=== PATIENT | female | born 1965 | race Caucasian/White ===

== ENCOUNTER 2024-05-28 16:37 | Inpatient (IN) | payer OTHER, SELFPAY ==
[2024-05-28] VITALS (7 sets, daily range): BP systolic 108–134; BP diastolic 65–86; PULSE 105–113; RESP 18–26; TEMP 36.5–37.1; O2SAT 90–100; BMI 25.6; BMI 24.2
--- NOTE | 2024-05-28 16:53 | ED_ITS ---
<Statement entered by Susan Bourgeois DO - 05/28/24 23:55> I was consulted by the JUAN CARLOS, and we discussed the complexity of the problems being addressed. I approved the treatment and management plan for this patient's care in the emergency department, thus performing a substantive portion of the medical decision making. Patient stable with no increased O2 requirement. No indication for emergent chest tube placement in the ED at this time. Susan Bourgeois DO Discharge Plan Disposition Patient Disposition: Admitted Condition: Serious Clinical Impressions Clinical Impression: Hydropneumothorax, Mass of right lung Discharge ED Provider: Susan Bourgeois General Adult HPI General Chief complaint: Upper Respiratory Infection Stated complaint: SOA,tumor in right lung Time Seen by Provider: 05/28/24 16:53 Mode of Arrival: Wheelchair Source of Information: Patient and Spouse Limitations: No Limitations Description of Symptoms (Recalled from ER Triage Doc. by RN): Pt arrives for evaluation of productive cough x several months. Pt states she has been coughing up yellow sputum. She has a tumor in her right upper lung. History of Present Illness HPI narrative: Patient presents for evaluation of dyspnea. Patient reports that over the last 3 days she has become significantly more short of breath and short of breath at rest. 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 in March and diagnosed with a right lung mass and was offered admission but she declined. Patient felt like she just had an upper respiratory tract infection and initially got better without treatment. She has not followed up since. She currently denies chest pain fever chills hemoptysis hematochezia melena nausea vomiting diarrhea. She just reports difficulty breathing difficulty taking a breath. Related Data Allergies Allergy/AdvReac Type Severity Reaction Status Date / Time CODEINE Allergy Severe I-ITCHING Uncoded 03/26/17 14:52 PCN (PENICILLIN) Allergy Severe I-HIVES Uncoded 03/26/17 14:52 [facility] Disclaimer: The information contained in this section may have been updated after the patient was seen, as this information can be updated by other users. 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/28/24 @ 21:51 by Edwardo David RN) Tonsil cancer Social History Smoking Status: Current every day smoker alcohol intake: never current occupational status: retired Travel in the last 8 weeks: None ROS Obtained: Yes Systems reviewed as appropriate & no additional complaints except as documented Physical Exam General General appearance: alert and in no apparent distress Respiratory Respiratory exam: Absent normal lung sounds bilaterally (Diminished breath sounds in the right lung field significantly) Cardiovascular Cardiovascular exam: Present tachycardia Neurological Exam Neurological exam: Present alert and oriented X3 Medical Decision Making Medical Records Medical records reviewed: Yes I reviewed the patient's medical records. Screening: Per USPSTF and CDC recommendations, given the prevalence of disease in our region, it is our hospital?s policy to screen for HIV and viral Hepatitis for all patients aged 18 and over and those with ongoing risk factors. Hiren Inquiry Pt receiving controlled substance: No Vital Signs: 05/28/24 16:45 05/28/24 17:30 05/28/24 19:00 Temperature 98.7 F Temperature Source Oral Pulse Rate 106 H 110 H Pulse Rate [Right] 113 H Respiratory Rate 18 Blood Pressure 118/71 134/86 Blood Pressure [Right Arm] 108/71 L Blood Pressure Mean [Right Arm] 83 Blood Pressure Source [Right Arm] Automatic Cuff Blood Pressure Position [Right Arm] Sitting 02 Sat by Pulse Oximetry 100 98 97 Oxygen Delivery Method Room Air Room Air 05/28/24 19:30 05/28/24 19:33 Temperature 97.7 F Temperature Source Oral Pulse Rate 105 H Pulse Rate [Right] 111 H Respiratory Rate 19 Blood Pressure 123/74 Blood Pressure [Right Arm] 111/65 Blood Pressure Mean [Right Arm] 80 Blood Pressure Source [Right Arm] Automatic Cuff Blood Pressure Position [Right Arm] 02 Sat by Pulse Oximetry 95 90 L Oxygen Delivery Method Room Air Lab Data Lab results reviewed: Yes I reviewed the patient's lab results. Lab Results 05/28/24 16:48: SARS-CoV-2 (PCR) Not detected, Influenza A Untype (PCR) Not detected, Influenza Type B (PCR) Not detected 05/28/24 17:29: Chlamy pneumoniae PCR Not detected, Adenovirus (PCR) Not detected, B. pertussis DNA (PCR) Not detected, Coronavirus OC43 (PCR) Not detected, Coronavirus HKU1 (PCR) Not detected, Coronavirus 229E (PCR) Not detected, SARS-CoV-2 (PCR) Not detected, Coronavirus NL63 (PCR) Not detected, Human Metapneumovir PCR Not detected, Influenza A (H1) PCR Not detected, Influ A (H1N1/09) PCR Not detected, Influenza A (H3) PCR Not detected, Influenza Type A (PCR) Not detected, Influenza Type B (PCR) Not detected, M. pneumoniae (PCR) Not detected, Parainfluenza 1 (PCR) Not detected, Parainfluenza 2 (PCR) Not detected, Parainfluenza 3 (PCR) Not detected, Parainfluenza 4 (PCR) Not detected, RSV (PCR) Not detected, Entero/Rhino (PCR) Not detected 05/28/24 17:50: WBC 8.7, RBC 3.98 L, Hgb 11.1 L, Hct 35.5 L, MCV 89.2, MCH 27.9, MCHC 31.3 L, RDW 13.2, Plt Count 458 H, MPV 9.9, Neut % (Auto) 75.3, Lymph % (Auto) 13.4, Waldo % (Auto) 8.1, Eos % (Auto) 2.1, Baso % (Auto) 0.8, Neut # (Auto) 6.6, Lymph # (Auto) 1.2, Waldo # (Auto) 0.7, Eos # (Auto) 0.2, Baso # (Auto) 0.1, Sodium 137, Potassium 4.1, Chloride 99, Carbon Dioxide 29, Anion Gap 13.1, BUN 7, Creatinine 0.60, Estimated Creat Clear 110, Estimated GFR 102, Est GFR ( Amer) 123, Glucose 102 H, Calcium 8.9, Total Bilirubin 0.3, AST 30, ALT 24, Alkaline Phosphatase 93, Troponin I < 0.01, NT-Pro-B Natriuret Pep 122, Total Protein 7.9, Albumin 4.1, Globulin 3.8 H, Albumin/Globulin Ratio 1.1 05/28/24 17:54: VBG pH 7.38, VBG pCO2 49.0, VBG pO2 33.4, VBG HCO3 28.1, VBG Total CO2 29.6 H, VBG O2 Saturation 67.3, VBG Base Excess 3.0 H, VBG Lactic Acid 1.3 05/28/24 17:50 05/28/24 17:50 Orders (Tests/Meds): ED MEDICATIONS Generic Name Dose Route Start Last Admin Trade Name Freq PRN Reason Stop Dose Admin Acetaminophen 650 mg 05/28/24 19:33 Acetaminophen 325mg Tab PO 06/27/24 19:32 Q4HP PRN Fever or Mild Pain (1-3) Albuterol/Ipratropium 3 ml 05/28/24 20:55 Ipratropium/Albuterol 3 Ml Neb IH 06/27/24 20:54 Q4HP PRN Shortness Of Breath Diazepam 5 mg 05/28/24 20:51 05/28/24 21:31 Diazepam 10mg/2ml Syringe IV 05/28/24 20:52 5 mg ONCE ONE Administration Docusate Sodium 100 mg 05/29/24 09:00 Docusate Sodium 100 Mg Capsule PO 06/28/24 08:59 DAILY [facility] Enoxaparin Sodium 40 mg 05/29/24 09:00 Enoxaparin 40mg/0.4ml Syringe SUBCUT 06/28/24 08:59 DAILY [facility] Piperacillin Sod/Tazobactam 50 mls @ 100 mls/hr 05/29/24 09:00 Sod 3.375 gm/ Sodium Chloride IV 06/08/24 08:59 Q8H [facility] Ketorolac Tromethamine 15 mg 05/28/24 20:55 Ketorolac 30mg/Ml Vial IV 06/02/24 20:59 Q6H PRN Moderate to Severe Pain (4-10) Miscellaneous 1 each 05/28/24 19:30 Vancomycin Consult Request NOTAPPLIC 06/27/24 19:29 CONSULT PHARMACY [facility] Nicotine 21 mg 05/28/24 22:08 Nicotine 21mg/24hr Patch TD 06/27/24 22:07 DAILYP PRN Nicotine Cravings Ondansetron HCl 4 mg 05/28/24 20:54 Ondansetron 4mg/2ml Vial IV 06/27/24 20:53 Q6HP PRN Nausea Oxycodone/Acetaminophen 1 each 05/28/24 20:53 Oxycodone 5mg W/Apap 325mg Tablet PO 06/27/24 20:52 Q6HP PRN Severe Pain (7-10) Sodium Chloride 10 ml 05/28/24 18:26 05/28/24 18:27 Sodium Chloride 0.9% 10ml Syr (Rad Only) IV 06/27/24 18:25 10 ml NEEDED PRN Administration Maintain IV Site Discontinued Medications Generic Name Dose Route Start Last Admin Trade Name Freq PRN Reason Stop Dose Admin Albuterol/Ipratropium 9 ml 05/28/24 17:21 05/28/24 17:32 Ipratropium/Albuterol 3 Ml Neb IH 05/28/24 17:22 9 ml ONCE ONE Administration Piperacillin Sod/Tazobactam 50 mls @ 100 mls/hr 05/28/24 19:22 05/28/24 20:02 Sod 3.375 gm/ Sodium Chloride IV 05/28/24 19:51 100 mls/hr ONCE ONE Administration Vancomycin/PEG/NADA/Lysine/Water 1.75 gm in 350 mls @ 175 mls/hr 05/28/24 19:30 05/28/24 21:31 Vancomycin 1.75gm/350ml (Peg) Premix IV 05/28/24 21:29 175 mls/hr ONCE ONE Administration Iopamidol 70 ml 05/28/24 18:26 05/28/24 18:27 Iopamidol-370 (76%);100ml Bottle IV 05/28/24 18:27 70 ml ONCE ONE Administration Ketorolac Tromethamine 15 mg 05/28/24 21:00 Ketorolac 30mg/Ml Vial IV 06/02/24 20:59 Q6H [place] Methylprednisolone Sodium Succinate 125 mg 05/28/24 17:21 05/28/24 17:32 Methylprednisolone Sod Succ 125mg Vial IV 05/28/24 17:22 125 mg ONCE ONE Administration Ondansetron HCl 4 mg 05/28/24 19:33 Ondansetron 4mg/2ml Vial IV 06/27/24 19:32 Q8HP PRN Nausea Sodium Chloride 40 ml 05/28/24 18:26 05/28/24 18:27 0.9 % Sodium Chloride 50 Ml Vial IV 05/28/24 18:27 40 ml ONCE ONE Administration ORDERS Category Date Time Status CT angio chest PE protocol Stat Cat Scan 05/28/24 17:22 Completed BNP [NT Pro Brain Natriuretic Pep.] Stat Lab 05/28/24 17:50 Completed Basic Metabolic Panel AMLAB Lab 05/29/24 06:00 Ordered Basic Metabolic Panel AMLAB Lab 05/30/24 06:00 Ordered Basic Metabolic Panel AMLAB Lab 05/31/24 06:00 Ordered Basic Metabolic Panel AMLAB Lab 06/01/24 06:00 Ordered Basic Metabolic Panel AMLAB Lab 06/02/24 06:00 Ordered CBC w/Auto Diff [Complete Blood Count Auto Diff] Stat Lab 05/28/24 17:50 Completed CMP [Comprehensive Metabolic Panel] Stat Lab 05/28/24 17:50 Completed Complete Blood Count Auto Diff AMLAB Lab 05/29/24 06:00 Ordered Complete Blood Count Auto Diff AMLAB Lab 05/30/24 06:00 Ordered Complete Blood Count Auto Diff AMLAB Lab 05/31/24 06:00 Ordered Complete Blood Count Auto Diff AMLAB Lab 06/01/24 06:00 Ordered Complete Blood Count Auto Diff AMLAB Lab 06/02/24 06:00 Ordered Full Resp Panel w/COVID ([facility]) Routine Lab 05/28/24 17:29 Completed Magnesium AMLAB Lab 05/29/24 06:00 Ordered Rapid PCR Covid and Flu A/B Stat Lab 05/28/24 16:48 Completed Trop I [Troponin I] Stat Lab 05/28/24 17:50 Completed Troponin I Q3H Lab 05/28/24 21:01 Completed Troponin I Q3H Lab 05/28/24 23:30 Ordered Blood Culture Stat Micro 05/28/24 19:29 Received VBG [Venous Blood Gas] Stat RT 05/28/24 17:54 Completed HEART Score History (anamnesis): Slightly suspicious ECG: Non-specific disturbance Age: 45-65 years Risk factors: 3 or more risk factors Troponin: </= normal limit HEART Score: 4 Medical Decision Narrative: In summary patient is a 58-year-old female who presents to the emergency department for evaluation of dyspnea. Patient is normotensive at 108/71 tachycardic at 113 with sinus tachycardia on the bedside monitor breathing 18 times a minute satting at 100% on room air upon arrival, afebrile at 98.7. School exam is remarkable for increased work of breathing but no accessory muscle use, significantly diminished breath sounds in the right lung harrison without adventitious sounds with normal breath sounds in the left lung harrison. Differential diagnosis includes pneumonia versus pleural effusion versus atelectasis versus lung cancer versus PE versus COPD versus ACS etc. Initial workup will be conducted with hematologic labs VBG CT scan PE protocol. Initial interventions include DuoNeb Decadron supplemental O2 continuous pulse oximetry and cardiac monitoring. Initial workup reviewed by me shows that her white count is 8.7 with no neutrophilic shift VBG shows a pH of 7.38 with a VBG lactic acid of 1.3 initial troponin is negative at 0.01 full respiratory panel is negative for all organisms tested and my informal interpretation of her CT scan PE protocol shows no evidence of thrombus but shows hydro pneumothorax, pleural effusion, and a very large mediastinal and hilar mass encompassing the central airways and pulmonary arteries. I then had interactive discussion with pulmonology on-call regarding patient's presentation [place] and findings and patient likely needs a chest tube but as she is currently stable on room air plan is for admission with chest tube placement tomorrow and probable coloscopy possibly with biopsy. If patient decompensate will place chest tube tonight. Patient started on broad-spectrum antibiotics for possible obstructive pneumonia. I then had an interactive discussion with hospital medicine and she will be admitted for further evaluation and care with the plan as above Critical Care Critical Care Time Critical Care Time: Yes Attestation: On 05/28/24, the high probability of a clinically significant, sudden or life threatening deterioration of the following system(s) required my full and direct attention, intervention and personal management. The time I documented below is in addition to time spent performing reported procedures but includes the following listed in this critical care notation. Total Time Total Critical Care Time: 35
[2024-05-28 16:56] LABS: Coronavirus 19, PCR Not Detected (NotDetected); Influenza A, PCR Not Detected (NotDetected); Influenza B, PCR Not Detected (NotDetected)
--- NOTE | 2024-05-28 17:22 | CT_ITS ---
PROCEDURE INFORMATION: Exam: CTA Chest With Contrast Exam date and time: 05/28/2024 6:27 PM Age: 58 years old Clinical indication: Dyspnea; Additional info: Dyspnea, history of lung mass TECHNIQUE: Imaging protocol: Computed tomographic angiography of the chest with contrast. Exam focused on the arteries. 3D rendering (Not supervised by radiologist): MIP and/or 3D reconstructed images were created by the technologist. Radiation optimization: All CT scans at this facility use at least one of these dose optimization techniques: automated exposure control; mA and/or kV adjustment per patient size (includes targeted exams where dose is matched to clinical indication); or iterative reconstruction. Contrast material: ISOUVE 370; Contrast volume: 80 ml; Contrast route: INTRAVENOUS (IV); COMPARISON: No relevant prior studies available. FINDINGS: Pulmonary arteries: No evident PE. Aorta: Unremarkable. No aortic aneurysm. No aortic dissection. Lungs: Large extensive conglomerate mediastinal and right hilar mass/adenopathy noted measuring around 11 x 8.4 x 7.6 cm which involves the right paratracheal, AP window, and subcarinal regions and results in encasement of the central airways including all of the right main bronchus and right hilar airways and proximal portion of the left main bronchus which are narrowed. Associated encasement of the right main pulmonary artery and the right hilar pulmonary arteries which are also significantly narrowed. Occlusion of the bronchus intermedius may also be present. Left lung is clear. Pleural spaces: Large right-sided hydropneumothorax noted with near total opacification and partial collapse of the right lower lobe and right middle lobe and partial collapse of the right upper lobe. Multifocal subpleural opacities noted in the right upper lobe may reflect atelectasis and/or infiltrates. Superimposed masses not excluded. Heart: Unremarkable. No cardiomegaly. No pericardial effusion. Lymph nodes: See Lungs finding. Stomach: Diverticulum projects off the posterior fundus of the stomach. Bones/joints: Bony structures intact. No suspicious lytic or blastic lesions seen. Soft tissues: Unremarkable. IMPRESSION: 1. No evident PE. 2. Very large conglomerate mediastinal and right hilar mass with associated encasement and narrowing of the central pulmonary arteries and airways more pronounced on the right. Associated occlusion of the bronchus intermedius. 3. Large right-sided hydropneumothorax with collapse and consolidation of the right lower lobe and right middle lobe and partial collapse with multifocal subpleural opacities of the right upper lobe that may reflect atelectasis and/or infiltrates although superimposed subpleural masses not totally excluded.
[2024-05-28] MEDS: METHYLPREDNISOLONE SOD SUCC 125MG VIAL 125 MG IV (17:32)
[2024-05-28] MEDS: IPRATROPIUM/ALBUTEROL 3 ML NEB 9 ML IH (17:32)
--- NOTE | 2024-05-28 17:51 | PC.NURSE ---
called respiratory and notified them of vbg order
[2024-05-28 17:57] LABS: Lactate Venous 1.3 mmol/L (0.4-2.0); VBG HCO3 28.1 mmol/L (23-30); VBG Oxygen Saturation 67.3 % (50-70); VBG PH 7.38 mmol/L (7.31-7.41); VBG PO2 33.4 mmol/L (28-40); VBG Total CO2 29.6 mmol/L (23-27)
[2024-05-28 18:01] LABS: Basophils # 0.1 K/mm3 (0-0.2); Basophils % 0.8 % (0.1-2.0); Eosinophils # 0.2 K/mm3 (0.0-0.4); Eosinophils % 2.1 % (0.1-12.0); Hematocrit 35.5 % (37.0-47.0); Hemoglobin 11.1 g/dL (12.2-16.2); Lymphocytes # 1.2 K/mm3 (0.7-4.5); Lymphocytes % 13.4 % (10-50); Mean Corpuscular HGB Conc 31.3 g/dL (31.8-35.4); Mean Corpuscular Hemoglobin 27.9 pg (27.0-31.2); Mean Corpuscular Volume 89.2 fl (81-99); Mean Platelet Volume 9.9 fl (7.4-10.4); Monocytes # 0.7 K/mm3 (0.1-1.0); Monocytes % 8.1 % (1.7-9.3); Neutrophils # 6.6 K/mm3 (1.8-7.8); Neutrophils % 75.3 % (37.0-80.0); Platelet Count 458 K/mm3 (142-424); Red Blood Count 3.98 M/mm3 (4.20-5.40); Red Cell Distribution Width 13.2 % (11.5-17.5); White Blood Count 8.7 K/mm3 (4.8-10.8)
[2024-05-28 18:05] LABS: Albumin Level 4.1 g/dl (3.5-5.0); Chloride 99 mmol/L (98-107); Potassium 4.1 mmoL/L (3.5-5.1); Sodium 137 mmol/L (136-145)
[2024-05-28 18:08] LABS: Adenovirus,PCR Not Detected (NotDetected); Bordetella Pertussis Not Detected (NotDetected); Chlamydophila Pneumoniae, PCR Not Detected (NotDetected); Coronavirus 19, PCR Not Detected (NotDetected); Coronavirus 229E Not Detected (NotDetected); Coronavirus NL63 Not Detected (NotDetected); Coronavirus OC43 Not Detected (NotDetected); Coronovirus HKU1,PCR Not Detected (NotDetected); Human Metapneumovirus Not Detected (NotDetected); Influenza A, PCR Not Detected (NotDetected); Influenza AH1, 2009 Not Detected (NotDetected); Influenza AH1, PCR Not Detected (NotDetected); Influenza AH3,PCR Not Detected (NotDetected); Influenza B, PCR Not Detected (NotDetected); Mycoplasma Pneumoniae, PCR Not Detected (NotDetected); Parainfluenza 1, PCR Not Detected (NotDetected); Parainfluenza 2, PCR Not Detected (NotDetected); Parainfluenza 3, PCR Not Detected (NotDetected); Parainfluenza 4, PCR Not Detected (NotDetected); Respiratory Syncytial Virus Not Detected (NotDetected); Rhinovirus/Enterovirus Not Detected (NotDetected)
[2024-05-28 18:08] LABS: Alanine Aminotransferase 24 U/L (12-78); Albumin/Globulin Ratio 1.1 (1.1-1.8); Alkaline Phosphatase 93 U/L (38-126); Anion Gap 13.1 mEq/L (5-15); Aspartate Amino Transferase 30 U/L (14-36); Bilirubin,Total 0.3 mg/dl (0.2-1.3); Blood Urea Nitrogen 7 mg/dl (7-17); Calcium 8.9 mg/dl (8.4-10.2); Carbon Dioxide 29 mmol/L (22.0-30.0); Creatinine Clearance Estimated 110 mL/min (50-200); Estimated Glomerular Filt Rate 102 ml/min (>60); GFR (African American) 123 ML/MIN (>60); Globulin 3.8 g/dL (1.3-3.2); Glucose 102 mg/dl (74-100); Total Protein,Serum 7.9 g/dl (6.3-8.2)
[2024-05-28 18:16] LABS: NT Pro Brain Natriuretic Pep. 122 pg/mL (0-125)
--- NOTE | 2024-05-28 18:21 | PC.NURSE ---
pt to scan via stretcher
[2024-05-28] MEDS: SODIUM CHLORIDE 0.9% 10ML SYR (RAD ONLY) 10 ML IV (18:27)
[2024-05-28] MEDS: IOPAMIDOL-370 (76%);100ML BOTTLE 70 ML IV (18:27)
[2024-05-28] MEDS: 0.9 % SODIUM CHLORIDE 50 ML VIAL 40 ML IV (18:27)
[2024-05-28 18:32] LABS: Troponin I < 0.01 ng/ml (0.00-0.034)
--- NOTE | 2024-05-28 19:43 | PC.NURSE ---
rounded on pt at this time. family at bedside. no needs voiced. call light in reach.
--- NOTE | 2024-05-28 19:47 | PC.NURSE ---
Blood cultures were just collected and patient is concerned about eating. Dr. Bourgeois says patient can't eat until further notice.
[2024-05-28] MEDS: PIPERCILLIN/TAZO 3.375 GM in 0.9 % SODIUM CHLORIDE 50 ML IV (20:02)
--- NOTE | 2024-05-28 20:12 | PC.NURSE ---
report called to Edwardo HERNANDEZ at this time
--- NOTE | 2024-05-28 20:19 | P.HP_ITS ---
History of Present Illness *Admission Date: 05/28/24 *Reason for visit:: Shortness of Breath *History of present illness: The patient is a 58-year-old female with a history of head and neck cancer status post radical neck surgery on the left, ongoing tobacco use, and COPD not requiring home oxygen. She presents to the emergency department with worsening dyspnea over the past three days, reporting that she has become significantly more short of breath, now experiencing shortness of breath even at rest. She describes difficulty breathing and difficulty taking a deep breath but denies associated chest pain, fever, chills, hemoptysis, hematochezia, melena, nausea, vomiting, or diarrhea. She was evaluated at [facility] in March, where she was diagnosed with a right lung mass and was offered admission, which she declined. She attributed her symptoms to an upper respiratory tract infection and initially improved without treatment, but she has not followed up since. Her recent laboratory results show no evidence of viral or bacterial respiratory infections, with a normal white blood cell count of 8.7 and no neutrophilic shift. A venous blood gas reveals a pH of 7.38 with a lactic acid of 1.3. Troponin is negative. Upon arrival, she was tachycardic at 113 beats per minute but otherwise hemodynamically stable with an oxygen saturation of 100% on room air. Physical examination reveals increased work of breathing but no use of accessory muscles, with significantly diminished breath sounds in the right lung field. A CT scan with PE protocol shows no pulmonary embolism but reveals a hydropneumothorax, pleural effusion, and a very large mediastinal and hilar mass encasing the central airways and pulmonary arteries. The on-call pulmonology team was consulted, and the patient is currently stable on room air with plans for admission, chest tube placement tomorrow, and probable bronchoscopy with biopsy. Broad-spectrum antibiotics IV Zosyn been initiated for possible obstructive pneumonia. If the patient decompensates, an emergent chest tube will be placed. [facility] Disclaimer: The information contained in this section may have been updated after the samm ventura was seen, as this information can be updated by other users. 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/29/24 @ 16:53 by Gian Hung MD) Pneumonia Lung collapse Pleural effusion on right Pneumothorax HLD (hyperlipidemia) COPD (chronic obstructive pulmonary disease) Tonsil cancer Surgical History (Updated 05/29/24 @ 02:00 by Edwardo David RN) Hx of tonsillectomy H/O: hysterectomy Social History (Updated 05/28/24 @ 22:26 by TONY Joshi) Smoking Status: Current every day smoker alcohol intake: never current occupational status: retired Travel in the last 8 weeks: None Have you lived/traveled outside US in past 30 days?: No Contact w/someone who lives/traveled outside US past 30 days?: No Exposure to someone with infectious disease in past 14 days?: No Do you have a fever (greater than 100.4 F or 38 C)?: No Have you tested positive for COVID-19: No Exposed to someone with COVID-19 in past 14 days?: No Do you have a sore throat?: No Do you have a cough?: No Do you have any weakness?: No Do you have any diarrhea?: No Are you experiencing any unusual bleeding?: No Do you have any muscle aches/pain?: No Do you have any abdominal pain?: No Are you experiencing loss of taste or smell?: No Review of Systems Review of Systems Review of systems (narrative): 13 point review of systems negative outside HPI Meds Home Medications and Allergies Home Medications ?Medication ?Instructions ?Recorded ?Confirmed ?Type diazepam 5 mg tablet 5 - 10 mg PO BIDP PRN Anxiety 05/29/24 05/29/24 History trazodone 50 mg tablet 50 mg PO HS 05/29/24 05/29/24 History New Prescriptions to Start Prescriptions: Allergies Allergy/AdvReac Type Severity Reaction Status Date / Time codeine Allergy Unknown Verified 05/29/24 07:43 allergy reaction Penicillins Allergy Hives Verified 05/29/24 07:43 Exam Data for Last 24 hours Vital signs and Labs for Last 24 Hours: Temp Pulse Resp BP Pulse Ox O2 Del Method 98.7 F 105 H 18 123/74 95 Room Air 05/28/24 16:45 05/28/24 19:30 05/28/24 16:45 05/28/24 19:30 05/28/24 19:30 05/28/24 17:30 Laboratory Results - last 24 hr 05/28/24 16:48: SARS-CoV-2 (PCR) Not detected, Influenza A Untype (PCR) Not detected, Influenza Type B (PCR) Not detected 05/28/24 17:50: WBC 8.7, RBC 3.98 L, Hgb 11.1 L, Hct 35.5 L, MCV 89.2, MCH 27.9, MCHC 31.3 L, RDW 13.2, Plt Count 458 H, MPV 9.9, Neut % (Auto) 75.3, Lymph % (Auto) 13.4, [place] % (Auto) 8.1, Eos % (Auto) 2.1, Baso % (Auto) 0.8, Neut # (Auto) 6.6, Lymph # (Auto) 1.2, [place] # (Auto) 0.7, Eos # (Auto) 0.2, Baso # (Auto) 0.1, Sodium 137, Potassium 4.1, Chloride 99, Carbon Dioxide 29, Anion Gap 13.1, BUN 7, Creatinine 0.60, Estimated Creat Clear 110, Estimated GFR 102, Est GFR ( Amer) 123, Glucose 102 H, Calcium 8.9, Total Bilirubin 0.3, AST 30, ALT 24, Alkaline Phosphatase 93, Troponin I < 0.01, NT-Pro-B Natriuret Pep 122, Total Protein 7.9, Albumin 4.1, Globulin 3.8 H, Albumin/Globulin Ratio 1.1 05/28/24 17:54: VBG pH 7.38, VBG pCO2 49.0, VBG pO2 33.4, VBG HCO3 28.1, VBG Total CO2 29.6 H, VBG O2 Saturation 67.3, VBG Base Excess 3.0 H, VBG Lactic Acid 1.3 I & O for Last 24 hours: Intake & Output 05/25/24 05/26/24 05/27/24 05/28/24 23:59 23:59 23:59 23:59 Weight 69.853 kg Constitutional Constitutional: mild distress and chronically ill appearing *Routine HEENT Exam Head: Present normocephalic Eye: Present EOMI and PERRL ENT: Present mucous membranes moist *Routine Neck Exam Neck: Present supple; Absent lymphadenopathy *Routine Respiratory Exam Respiratory: Present diminished air movement (Marked diminishment right lung harrison) *Routine Cardiovascular Exam Cardiovascular: Present RRR *Routine Abdominal Exam Abdominal: Present soft and normoactive bowel sounds; Absent tenderness *Routine Rectal Exam Rectal:: deferred *Routine Genitalia Exam Genitalia:: deferred *Routine Extremities Exam Extremities: Absent cyanosis, clubbing or edema *Routine Skin Exam Skin: Present warm; Absent rash *Routine Neurological Exam Neurological: Present alert and oriented X3 Assessment and Plan *Assessment and plan (1) Mass of right lung: Status: Acute Category: Medical Code(s): R91.8 - Other nonspecific abnormal finding of lung field (2) Hydropneumothorax: Status: Acute Category: Medical Code(s): J94.8 - Other specified pleural conditions (3) Tobacco dependence: Status: Acute Category: Medical Code(s): F17.200 - Nicotine dependence, unspecified, uncomplicated (4) COPD (chronic obstructive pulmonary disease): Status: Acute Category: Medical Code(s): J44.9 - Chronic obstructive pulmonary disease, unspecified (5) Severe protein-calorie malnutrition: Status: Acute Category: Medical Code(s): E43 - Unspecified severe protein-calorie malnutrition (6) Lung collapse: Status: Acute Category: Medical Code(s): J98.19 - Other pulmonary collapse (7) Pneumonia: Status: Acute Category: Medical Code(s): J18.9 - Pneumonia, unspecified organism Plan Medical Decision Making: The patient is a 58-year-old female with a history of head and neck cancer (status post radical neck surgery on the left), ongoing tobacco use, COPD (not on home oxygen), and a previously diagnosed right lung mass, presenting with progressive dyspnea over the past three days, now occurring at rest. Imaging reveals a hydropneumothorax, pleural effusion, and a large mediastinal and hilar mass encasing the central airways and pulmonary arteries. The patient is currently hemodynamically stable and saturating well on room air, but given the extent of findings, she remains at high risk for decompensation. Large mediastinal and hilar mass with hydropneumothorax and pleural effusion * Imaging reveals a significant mediastinal and hilar mass encasing the central airways and pulmonary arteries, with associated pleural effusion and hydropneumothorax. * High suspicion for malignancy given history of head and neck cancer, prior right lung mass, and ongoing tobacco use. * Pulmonology consulted with bronchoscopy and biopsy planned. * Chest tube placement scheduled for tomorrow unless respiratory decompensation occurs, in which case it will be placed emergently. * Oncology consultation pending biopsy results. Worsening dyspnea, likely multifactorial * Likely secondary to mass effect, airway compression, pleural effusion, and possible post-obstructive pneumonia. * Broad-spectrum IV antibiotics initiated with cefepime and metronidazole for potential post-obstructive pneumonia. * Sputum and blood cultures obtained. * Continuous pulse oximetry for early detection of respiratory compromise. COPD with ongoing tobacco use * Potential exacerbation secondary to mass effect and infection. * Nebulized DuoNeb every 4-6 hours as needed. * IV dexamethasone 6 mg daily for airway inflammation. * Tobacco cessation counseling and nicotine replacement offered. Tachycardia (HR 113), likely secondary to stress response and hypoxemia risk * EKG performed; sinus tachycardia without ischemic changes. * Troponin negative; repeat if symptoms change. * Monitor for worsening tachycardia or hemodynamic instability. Normocytic anemia (Hgb 11.1) and thrombocytosis (Plt 458) * Likely anemia of chronic disease with possible reactive thrombocytosis due to malignancy or infection. * Trend hemoglobin and platelets daily. * Evaluate for iron studies, ferritin, and reticulocyte count if worsening anemia. Nutritional status and malignancy-related cachexia risk * Dietitian consultation for nutritional support. * High-protein diet and calorie supplementation encouraged. * Assess for weight loss and consider PEG tube discussion if dysphagia or cachexia progresses. Goals of care and advanced planning * Discussion with patient regarding prognosis and treatment options. * If malignancy is confirmed, oncology consultation for discussion of chemotherapy, radiation, or palliative care. * Palliative care consult to be considered for symptom management and advanced care planning as needed. Disposition * Admit to hospital medicine for further monitoring and management. * Monitor for respiratory distress, hemodynamic instability, and infection progression. * Proceed with planned interventions including bronchoscopy, biopsy, and chest tube placement. Rounded on patient after nurse practitioner. Personally examined and interviewed patient. Agree with exam findings and care plan as documented. Case discussed with pulmonology. Planning for chest tube and thoracentesis. Will have further discussion with patient about desire for workup for lung cancer and discussion about treatment options.
--- NOTE | 2024-05-28 20:22 | PC.NURSE ---
Pt transported to inpatient unit via stretcher by EDT with IV
--- NOTE | 2024-05-28 20:25 | PC.NURSE ---
Patient arrived to floor via stretcher from ED at 20:24.
[2024-05-28] MEDS: diazePAM 10MG/2ML SYRINGE 5 MG IV (21:31)
[2024-05-28] MEDS: VANCOMYCIN/WATER FOR INJ (PEG) 1.75 GM/350 ML PIGGYBACK IV (21:31)
[2024-05-28 21:41] LABS: Troponin I < 0.01 ng/ml (0.00-0.034)
[2024-05-28] MEDS: KETOROLAC 30MG/ML VIAL 15 MG IV (22:33)
[2024-05-28] MEDS: NICOTINE 21MG/24HR PATCH 21 MG TD (22:36)
[2024-05-28] MEDS: OXYCODONE 5MG W/APAP 325MG TABLET 1 EACH PO (23:54)
[2024-05-28] MEDS: ONDANSETRON 4MG/2ML VIAL 4 MG IV (23:54)
[2024-05-29] VITALS (9 sets, daily range): BP systolic 103–127; BP diastolic 63–68; PULSE 70–112; RESP 16–19; TEMP 36.4–36.6; O2SAT 95–100; BMI 24.1
--- NOTE | 2024-05-29 | US_ITS ---
FINAL REPORT CLINICAL HISTORY: RT PLEURAL EFFUSION -- RT THORACENTESIS -- DR.SRINADH JAY -- 100 ML FINDINGS: ULTRASOUND GUIDED THORACENTESIS HISTORY: Pleural effusion TECHNIQUE: Sonographic guidance was provided for right sided thoracentesis performed by the clinical service. Approximately 100 mL of fluid was removed by the clinical service. IMPRESSION: Ultrasound guidance provided for thoracentesis performed by the clinical service Authenticated and ERN
[2024-05-29 00:32] LABS: Troponin I < 0.01 ng/ml (0.00-0.034)
[2024-05-29 06:55] LABS: Basophils % 0.1 % (0.1-2.0); Hematocrit 34.7 % (37.0-47.0); Hemoglobin 10.8 g/dL (12.2-16.2); Lymphocytes # 0.6 K/mm3 (0.7-4.5); Lymphocytes % 6.7 % (10-50); Mean Corpuscular HGB Conc 31.1 g/dL (31.8-35.4); Mean Corpuscular Hemoglobin 28.1 pg (27.0-31.2); Mean Corpuscular Volume 90.1 fl (81-99); Mean Platelet Volume 9.8 fl (7.4-10.4); Monocytes # 0.3 K/mm3 (0.1-1.0); Monocytes % 3.2 % (1.7-9.3); Neutrophils # 7.6 K/mm3 (1.8-7.8); Neutrophils % 89.6 % (37.0-80.0); Platelet Count 461 K/mm3 (142-424); Red Blood Count 3.85 M/mm3 (4.20-5.40); Red Cell Distribution Width 13.2 % (11.5-17.5); White Blood Count 8.5 K/mm3 (4.8-10.8)
[2024-05-29 07:14] LABS: Chloride 103 mmol/L (98-107); Sodium 139 mmol/L (136-145)
[2024-05-29 07:15] LABS: Potassium 4.2 mmoL/L (3.5-5.1)
[2024-05-29 07:18] LABS: Anion Gap 12.2 mEq/L (5-15); Blood Urea Nitrogen 12 mg/dl (7-17); Calcium 9.2 mg/dl (8.4-10.2); Carbon Dioxide 28 mmol/L (22.0-30.0); Creatinine Clearance Estimated 103 mL/min (50-200); Estimated Glomerular Filt Rate 102 ml/min (>60); GFR (African American) 123 ML/MIN (>60); Glucose 157 mg/dl (74-100); Magnesium 2.1 mg/dl (1.6-2.3)
--- NOTE | 2024-05-29 08:37 | HMH.PHAINT1 ---
Pharmacy Intervention Comments: MEDICATION RECONCILIATION COMPLETED ON PATIENT USING EXTERNAL FILL HISTORY FROM PHARMACY AND KEVIN REPORT. -BO OLIVARES, BINHD
[2024-05-29] MEDS: diazePAM 5MG TABLET 5 MG PO ×2 (08:51→21:21)
[2024-05-29] MEDS: PIPERACILLIN/TAZO 4.5 GM in 0.9 % SODIUM CHLORIDE 100 ML IV ×3 (08:51→21:21)
[2024-05-29] MEDS: KETOROLAC 30MG/ML VIAL 15 MG IV (08:52)
[2024-05-29] MEDS: DOCUSATE SODIUM 100 MG CAPSULE PO (08:53)
[2024-05-29] MEDS: ENOXAPARIN 40MG/0.4ML SYRINGE 40 MG SUBCUT (08:53)
--- NOTE | 2024-05-29 09:26 | P.CONS_ITS ---
History of Present Illness History of present illness: Ms. Rangel is a 58-year-old female with a history of head and neck cancer status post radical neck surgery, current smoker COPD not on any home oxygen supplementation presented to the ER with worsening respiratory chest for the last 3 to 4 days and pulmonary was called for further evaluation and management. Upon further questioning patient admits diagnosis head and neck cancer status post resection in 2022, refused chemoradiation at that point of time last to follow-up recently had a CT scan done 2 months ago diagnosed with new lung mass refused to follow with pulmonology or oncology. [facility] Disclaimer: The information contained in this section may have been updated after the patient was seen, as this information can be updated by other users. 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/29/24 @ 13:26 by Shakira Huff MD) Pneumonia Lung collapse Pleural effusion on right Pneumothorax HLD (hyperlipidemia) COPD (chronic obstructive pulmonary disease) Tonsil cancer Surgical History (Updated 05/29/24 @ 02:00 by Edwardo David RN) Hx of tonsillectomy H/O: hysterectomy Social History (Updated 05/28/24 @ 22:26 by TONY Joshi) Smoking Status: Current every day smoker alcohol intake: never current occupational status: retired Travel in the last 8 weeks: None Have you lived/traveled outside [place] in past 30 days?: No Contact w/someone who lives/traveled outside US past 30 days?: No Exposure to someone with infectious disease in past 14 days?: No Do you have a fever (greater than 100.4 F or 38 C)?: No Have you tested positive for COVID-19: No Exposed to someone with COVID-19 in past 14 days?: No Do you have a sore throat?: No Do you have a cough?: No Do you have any weakness?: No Do you have any diarrhea?: No Are you experiencing any unusual bleeding?: No Do you have any muscle aches/pain?: No Do you have any abdominal pain?: No Are you experiencing loss of taste or smell?: No Review of Systems Constitutional Constitutional: Reports anorexia, Reports body ache(s), Reports fatigue, Reports lethargy and Reports weight loss Eyes Eyes: Denies eye discharge, Denies dry eyes, Denies irritation and Denies itchy eyes ENT Ears, Nose, Mouth, and Throat: Denies epistaxis, Denies facial pain, Denies lip swelling and Denies throat swelling *Cardiovascular Cardiovascular: Reports dyspnea, Reports dyspnea on exertion and Reports orthopnea *Respiratory Respiratory: Denies change in phlegm color, Reports chest congestion, Reports cough, Reports dyspnea, Reports dyspnea on exertion, Denies excessive phlegm production, Denies hemoptysis, Denies pain on inspiration, Denies pain with cough and Denies wheezing *Gastrointestinal Gastrointestinal: Denies abdominal pain, Denies belching and Denies cramping *Musculoskeletal Musculoskeletal: Reports back pain, Reports myalgias and Reports other (No small joint swelling or Pain) Psychiatric Psychiatric: Denies homicidal ideation and Denies suicidal ideation Endocrine Endocrine: Reports fatigue and Denies heat intolerance Hematologic/Lymphatic Hematologic/Lymphatic: Denies easy bleeding and Denies lymphadenopathy Allergic/Immunologic Allergic/Immunologic: Denies itchy eyes, Denies lip swelling, Denies throat swelling and Denies wheezing Pulmonology Exam Inpatient Vital signs and Labs for Last 24 Hours: Temp Pulse Resp BP Pulse Ox O2 Del Method O2 Flow Rate 97.8 F 91 H 16 127/65 99 Nasal Cannula 2.5 05/29/24 08:00 05/29/24 08:00 05/29/24 08:00 05/29/24 08:00 05/29/24 08:00 05/29/24 09:00 05/29/24 09:00 Laboratory Results - last 24 hr 05/28/24 16:48: SARS-CoV-2 (PCR) Not detected, Influenza A Untype (PCR) Not detected, Influenza Type B (PCR) Not detected 05/28/24 17:29: Chlamy pneumoniae PCR Not detected, Adenovirus (PCR) Not detected, B. pertussis DNA (PCR) Not detected, Coronavirus OC43 (PCR) Not detected, Coronavirus HKU1 (PCR) Not detected, Coronavirus 229E (PCR) Not detected, SARS-CoV-2 (PCR) Not detected, Coronavirus NL63 (PCR) Not detected, Human Metapneumovir PCR Not detected, Influenza A (H1) PCR Not detected, Influ A (H1N1/09) PCR Not detected, Influenza A (H3) PCR Not detected, Influenza Type A (PCR) Not detected, Influenza Type B (PCR) Not detected, M. pneumoniae (PCR) Not detected, Parainfluenza 1 (PCR) Not detected, Parainfluenza 2 (PCR) Not detected, Parainfluenza 3 (PCR) Not detected, Parainfluenza 4 (PCR) Not detected, RSV (PCR) Not detected, Entero/Rhino (PCR) Not detected 05/28/24 17:50: WBC 8.7, RBC 3.98 L, Hgb 11.1 L, Hct 35.5 L, MCV 89.2, MCH 27.9, MCHC 31.3 L, RDW 13.2, Plt Count 458 H, MPV 9.9, Neut % (Auto) 75.3, Lymph % (Auto) 13.4, [place] % (Auto) 8.1, Eos % (Auto) 2.1, Baso % (Auto) 0.8, Neut # (Auto) 6.6, Lymph # (Auto) 1.2, [place] # (Auto) 0.7, Eos # (Auto) 0.2, Baso # (Auto) 0.1, Sodium 137, Potassium 4.1, Chloride 99, Carbon Dioxide 29, Anion Gap 13.1, BUN 7, Creatinine 0.60, Estimated Creat Clear 110, Estimated GFR 102, Est GFR ( Amer) 123, Glucose 102 H, Calcium 8.9, Total Bilirubin 0.3, AST 30, ALT 24, Alkaline Phosphatase 93, Troponin I < 0.01, NT-Pro-B Natriuret Pep 122, Total Protein 7.9, Albumin 4.1, Globulin 3.8 H, Albumin/Globulin Ratio 1.1 05/28/24 17:54: VBG pH 7.38, VBG pCO2 49.0, VBG pO2 33.4, VBG HCO3 28.1, VBG Total CO2 29.6 H, VBG O2 Saturation 67.3, VBG Base Excess 3.0 H, VBG Lactic Acid 1.3 05/28/24 21:01: Troponin I < 0.01 05/28/24 23:39: Troponin I < 0.01 05/29/24 06:30: WBC 8.5, RBC 3.85 L, Hgb 10.8 L, Hct 34.7 L, MCV 90.1, MCH 28.1, MCHC 31.1 L, RDW 13.2, Plt Count 461 H, MPV 9.8, Neut % (Auto) 89.6 H, Lymph % (Auto) 6.7 L, [place] % (Auto) 3.2, Eos % (Auto) 0.0 L, Baso % (Auto) 0.1, Neut # (Auto) 7.6, Lymph # (Auto) 0.6 L, [place] # (Auto) 0.3, Eos # (Auto) 0.0, Baso # (Auto) 0.0, Sodium 139, Potassium 4.2, Chloride 103, Carbon Dioxide 28, Anion Gap 12.2, BUN 12 D, Creatinine 0.60, Estimated Creat Clear 103, Estimated GFR 102, Est GFR ( Amer) 123, Glucose 157 H D, Calcium 9.2, Magnesium 2.1 I & O for Labs for Last 24 Hours: Intake & Output 05/26/24 05/27/24 05/28/24 05/29/24 23:59 23:59 23:59 23:59 Intake Total 350 / 350 Output Total 0 / 0 Balance 350 / 350 Weight 145 lb 3.2 oz 144 lb 13.499 oz Constitutional: Present moderate distress Head: Present normocephalic and atraumatic ENT: Present normal exam, normal oropharynx and mucous membranes moist Neck: Present normal inspection and full ROM Respiratory: Present respiratory distress, diminished air movement and able to speak in complete sentences Comment:: Decreased breath sounds Right lower lung harrison. Left lung harrison clear with no significant wheezing. Cardiac: Present S1/S2, Tachycardia and radial pulses present GI: Present soft and distention; Absent tenderness or guarding Rectal (female): Present deferred (female): Present deferred Skin: Present intact; Absent cyanosis or jaundice Neuro: Present alert, awake and oriented x 3 Extremities: Present normal inspection; Absent clubbing or cyanosis Psychiatric: Present normal affect and cooperative Meds Home Medications and Allergies Home Medications ?Medication ?Instructions ?Recorded ?Confirmed ?Type diazepam 5 mg tablet 5 - 10 mg PO BIDP PRN Anxiety 05/29/24 05/29/24 History trazodone 50 mg tablet 50 mg PO HS 05/29/24 05/29/24 History New Prescriptions to Start Prescriptions: Allergies Allergy/AdvReac Type Severity Reaction Status Date / Time codeine Allergy Unknown Verified 05/29/24 07:43 allergy reaction Penicillins Allergy Hives Verified 05/29/24 07:43 Results Laboratory Findings 05/29/24 06:30 05/29/24 06:30 Abnormal lab findings: Abnormal Labs 05/28/24 05/28/24 05/29/24 17:50 17:54 06:30 RBC 3.98 L 3.85 L Hgb 11.1 L 10.8 L Hct 35.5 L 34.7 L MCHC 31.3 L 31.1 L Plt Count 458 H 461 H Neut % (Auto) 89.6 H Lymph % (Auto) 6.7 L Eos % (Auto) 0.0 L Lymph # (Auto) 0.6 L VBG Total CO2 29.6 H VBG Base Excess 3.0 H Glucose 102 H 157 H D Globulin 3.8 H Assessment and Plan *Assessment and plan (1) Mass of right lung: Status: Acute Category: Medical Code(s): R91.8 - Other nonspecific abnormal finding of lung field (2) Hydropneumothorax: Status: Acute Category: Medical Code(s): J94.8 - Other specified pleural conditions (3) Pneumothorax: Status: Acute Category: Medical Code(s): J93.9 - Pneumothorax, unspecified (4) Pleural effusion on right: Status: Acute Category: Medical Code(s): J90 - Pleural effusion, not elsewhere classified (5) Lung collapse: Status: Acute Category: Medical Code(s): J98.19 - Other pulmonary collapse (6) Pneumonia: Status: Acute Category: Medical Code(s): J18.9 - Pneumonia, unspecified organism Plan Ms. Rangel is a 58-year-old female with a reported history of head and neck cancer status post radical neck surgery, current smoker COPD not on any home oxygen supplementation presented to the ER with worsening respiratory chest for the last 3 to 4 days and pulmonary was called for further evaluation and management. Upon further questioning patient admits diagnosis head and neck cancer status post resection in 2022, refused chemoradiation at that point of time last to follow-up recently had a CT scan done 2 months ago diagnosed with new lung mass refused to follow with pulmonology or oncology. Patient had a CT PE performed upon admission did not show any evidence of pulmonary embolism. Large right hilar mediastinal mass with complete occlusion of the right upper lobe bronchus intermedius. Large right pleural effusion and pneumothorax. Adjacent right lower lobe atelectasis/postobstructive pneumonia also noted. Given patient's clinical stability patient was admitted to the hospital for further evaluation and management for possible chest tube placement and bronchoscopy. Afebrile. Hemodynamically stable. No evidence of leukocytosis. COVID-19 and flu PCR negative. Currently receiving Zosyn for postobstructive pneumonia. Extensive discussion with the patient and the family on the possible etiologies including malignancy. She would likely not be a candidate for surgical resection given her extensive malignant disease and malignancy patient is getting BX for the possible options of chemoradiation. Discussed the risks and benefits of chest tube placement. Patient will to proceed with the procedure. Plan: Status post chest tube placement, will follow with output for the noted hydropneumothorax. Chest tube to suction at negative 20 H2O Follow-up with pleural fluid results Continue Zosyn pending sputum culture and pleural fluid culture results DuoNebs Q6 hours along with Pulmicort Q12 scheduled F/U repeat CXR
[2024-05-29] MEDS: HYDROMORPHONE 2MG/ML SYRINGE 2 MG IV (11:45)
--- NOTE | 2024-05-29 12:38 | EXP.ACUTE.PN ---
Subjective *Date: 05/29/24 *Time: 19:16 Interval history: Mild distress today. About to get chest tube at time of evaluation. On supplemental oxygen. Reports persistent cough. Feeling very weak. Wants to have something to make her stronger and feel better before considering treatment for cancer per her report to me. Is also worried however about treatment of cancer she has had family members start treatment and go downhill and just dwindle away . Denies nausea or vomiting at time of interview however after thoracentesis was complaining of some mild nausea. Intermittent headache. Afebrile. Medical Exam Vital signs and Labs for Last 24 Hours: Vital Signs Temp Pulse Pulse Resp BP BP Pulse Ox 05/29/24 09:00 05/29/24 08:00 97.8 F 91 H 16 127/65 99 05/29/24 08:00 05/29/24 06:31 05/29/24 05:00 05/29/24 04:00 70 05/29/24 03:00 05/29/24 01:00 05/29/24 00:00 80 05/29/24 00:00 97.7 F 79 19 103/63 L 99 05/28/24 23:00 05/28/24 21:13 110 H 05/28/24 21:00 05/28/24 20:28 98.0 F 107 H 26 H 133/74 05/28/24 20:10 05/28/24 19:33 97.7 F 111 H 19 111/65 90 L 05/28/24 19:30 105 H 123/74 95 05/28/24 19:00 110 H 134/86 97 05/28/24 17:30 106 H 118/71 98 05/28/24 16:45 98.7 F 113 H 18 108/71 L 100 O2 Del Method O2 Flow Rate 05/29/24 09:00 Nasal Cannula 2.5 05/29/24 08:00 Nasal Cannula 2 05/29/24 08:00 Nasal Cannula 05/29/24 06:31 Nasal Cannula 2 05/29/24 05:00 Nasal Cannula 2 05/29/24 04:00 05/29/24 03:00 Nasal Cannula 2 05/29/24 01:00 Room Air 05/29/24 00:00 05/29/24 00:00 Nasal Cannula 05/28/24 23:00 Nasal Cannula 2 05/28/24 21:13 05/28/24 21:00 Nasal Cannula 2 05/28/24 20:28 Room Air 05/28/24 20:10 Nasal Cannula 2 05/28/24 19:33 Room Air 05/28/24 19:30 05/28/24 19:00 05/28/24 17:30 Room Air 05/28/24 16:45 Room Air Intake and Output 05/28/24 05/29/24 05/29/24 23:59 07:59 15:59 Intake Total 350 / 350 Output Total 0 / 0 Balance 350 / 350 0 / 350 Intake: Intake, Total IV Amount 350 / 350 Vancomycin/Water For Inj (Peg) 350 / 350 1.75 gm In 350 ml @ 175 mls/hr IV ONCE ONE Rx#:[id number] Output: Output, Urine Amount 0 / 0 Other: Number of Voids 0 Weight 65.862 kg 65.7 kg 65.7 kg Patient Weight 05/29/24 23:59 Weight 65.7 kg Laboratory Results - last 24 hr 05/28/24 16:48: SARS-CoV-2 (PCR) Not detected, Influenza A Untype (PCR) Not detected, Influenza Type B (PCR) Not detected 05/28/24 17:29: Chlamy pneumoniae PCR Not detected, Adenovirus (PCR) Not detected, B. pertussis DNA (PCR) Not detected, Coronavirus OC43 (PCR) Not detected, Coronavirus HKU1 (PCR) Not detected, Coronavirus 229E (PCR) Not detected, SARS-CoV-2 (PCR) Not detected, Coronavirus NL63 (PCR) Not detected, Human Metapneumovir PCR Not detected, Influenza A (H1) PCR Not detected, Influ A (H1N1/09) PCR Not detected, Influenza A (H3) PCR Not detected, Influenza Type A (PCR) Not detected, Influenza Type B (PCR) Not detected, M. pneumoniae (PCR) Not detected, Parainfluenza 1 (PCR) Not detected, Parainfluenza 2 (PCR) Not detected, Parainfluenza 3 (PCR) Not detected, Parainfluenza 4 (PCR) Not detected, RSV (PCR) Not detected, Entero/Rhino (PCR) Not detected 05/28/24 17:50: WBC 8.7, RBC 3.98 L, Hgb 11.1 L, Hct 35.5 L, MCV 89.2, MCH 27.9, MCHC 31.3 L, RDW 13.2, Plt Count 458 H, MPV 9.9, Neut % (Auto) 75.3, Lymph % (Auto) 13.4, [place] % (Auto) 8.1, Eos % (Auto) 2.1, Baso % (Auto) 0.8, Neut # (Auto) 6.6, Lymph # (Auto) 1.2, [place] # (Auto) 0.7, Eos # (Auto) 0.2, Baso # (Auto) 0.1, Sodium 137, Potassium 4.1, Chloride 99, Carbon Dioxide 29, Anion Gap 13.1, BUN 7, Creatinine 0.60, Estimated Creat Clear 110, Estimated GFR 102, Est GFR ( Amer) 123, Glucose 102 H, Calcium 8.9, Total Bilirubin 0.3, AST 30, ALT 24, Alkaline Phosphatase 93, Troponin I < 0.01, NT-Pro-B Natriuret Pep 122, Total Protein 7.9, Albumin 4.1, Globulin 3.8 H, Albumin/Globulin Ratio 1.1 05/28/24 17:54: VBG pH 7.38, VBG pCO2 49.0, VBG pO2 33.4, VBG HCO3 28.1, VBG Total CO2 29.6 H, VBG O2 Saturation 67.3, VBG Base Excess 3.0 H, VBG Lactic Acid 1.3 05/28/24 21:01: Troponin I < 0.01 05/28/24 23:39: Troponin I < 0.01 05/29/24 06:30: WBC 8.5, RBC 3.85 L, Hgb 10.8 L, Hct 34.7 L, MCV 90.1, MCH 28.1, MCHC 31.1 L, RDW 13.2, Plt Count 461 H, MPV 9.8, Neut % (Auto) 89.6 H, Lymph % (Auto) 6.7 L, [place] % (Auto) 3.2, Eos % (Auto) 0.0 L, Baso % (Auto) 0.1, Neut # (Auto) 7.6, Lymph # (Auto) 0.6 L, [place] # (Auto) 0.3, Eos # (Auto) 0.0, Baso # (Auto) 0.0, Sodium 139, Potassium 4.2, Chloride 103, Carbon Dioxide 28, Anion Gap 12.2, BUN 12 D, Creatinine 0.60, Estimated Creat Clear 103, Estimated GFR 102, Est GFR ( Amer) 123, Glucose 157 H D, Calcium 9.2, Magnesium 2.1 I & O for Labs for Last 24 Hours: Intake & Output 05/26/24 05/27/24 05/28/24 05/29/24 23:59 23:59 23:59 23:59 Intake Total 350 / 350 Output Total 0 / 0 Balance 350 / 350 Weight 65.862 kg 65.7 kg Constitutional: Present moderate distress, average body habitus, chronically ill appearing and cooperative Head: Present atraumatic and normocephalic ENT: Present normal exam Respiratory: Present diminished air movement; Absent rhonchi, wheezes or crackles Comment:: Absent air movement on right side, diminished on left. Cardiac: Present Reg Rate and Rhythm GI: Present soft and normal bowel sounds; Absent distention or tenderness Extremities: Present normal inspection and full ROM Skin: Present intact; Absent erythema Neuro: Present Grossly Intact, alert, awake, oriented x 3 and moves all extremities Assessment and Plan *Assessment and plan (1) Mass of right lung: Status: Acute Category: Medical Code(s): R91.8 - Other nonspecific abnormal finding of lung field (2) Hydropneumothorax: Status: Acute Category: Medical Code(s): J94.8 - Other specified pleural conditions (3) Tobacco dependence: Status: Acute Category: Medical Code(s): F17.200 - Nicotine dependence, unspecified, uncomplicated (4) COPD (chronic obstructive pulmonary disease): Status: Acute Category: Medical Code(s): J44.9 - Chronic obstructive pulmonary disease, unspecified (5) Severe protein-calorie malnutrition: Status: Acute Category: Medical Code(s): E43 - Unspecified severe protein-calorie malnutrition (6) Lung collapse: Status: Acute Category: Medical Code(s): J98.19 - Other pulmonary collapse (7) Pneumonia: Status: Acute Category: Medical Code(s): J18.9 - Pneumonia, unspecified organism Plan The patient is a 58-year-old female with a history of head and neck cancer (status post radical neck surgery on the left), ongoing tobacco use, COPD (not on home oxygen), and a previously diagnosed right lung mass, presenting with progressive dyspnea over the past three days, now occurring at rest. Imaging reveals a hydropneumothorax, pleural effusion, and a large mediastinal and hilar mass encasing the central airways and pulmonary arteries. The patient is currently hemodynamically stable and saturating well on room air, but given the extent of findings, she remains at high risk for decompensation. Pulmonology evaluated today, chest tube placed and thoracentesis performed. Continues to require inpatient management. Strong concern for lung cancer and obstructive pneumonia. Problems addressed as follows: Large mediastinal and hilar mass with hydropneumothorax and pleural effusion Post-obstructive Pneumonia COPD - Pulmonology was consulted for chest tube and further management of suspected lung cancer. Discussed case today. Findings most concerning for malignancy with obstructive process to the right lung along with malignant effusion. Continue Zosyn pending sputum and pleural fluid cultures. Continue DuoNebs every 6 hours and Pulmicort twice daily. -Chest tube placed with blood-tinged fluid removed. Continue suction at -20 mm water - Zosyn 4.5gm q6h -White count normal 8.5, repeat CBC, CMP, magnesium ordered for the morning kidney function normal with BUN 12, creatinine 0.6. Electrolytes stable with potassium 4.2, magnesium 2.1 - blood and pleural fluid cultures pending; cytology pending on pleural fluid - supplemental O2 as needed, on 2L, goal sats >90% -Chest x-ray obtained after placement of chest tube shows improvement in effusion and aeration of upper lobe of lung. Still has collapse of lower lobe per my review. Left lung appears relatively clear. Anxiety disorder: Continue Valium 5 mg as needed twice daily and trazodone nightly for sleep per home regimen Normocytic anemia (Hgb 11.1) and thrombocytosis (Plt 458) -Hemoglobin stable today at 10.8. Severe protein calorie malnutrition - nutrition consulted -Regular diet with protein supplement with meals Full code Regular diet with supplementation Continue Lovenox 40 mg daily
[2024-05-29] MEDS: ONDANSETRON 4MG/2ML VIAL 4 MG IV ×2 (13:20→20:44)
--- NOTE | 2024-05-29 13:30 | XR_ITS ---
FINAL REPORT CLINICAL HISTORY: Post chest tube placement FINDINGS: A portable view of the chest is obtained. There is no prior for comparison. Cardiac silhouette is normal. There is an abnormal left hilar contour concerning for mass. Right basilar chest tube is present. There is a moderate right pneumothorax despite presence of chest tube. IMPRESSION: Abnormal left hilar contour concerning for mass. Moderate right pneumothorax despite chest tube. Reviewed, Interpreted and Dictated by Clarisse eYboah MD Transcribed by Bambi Lopez Authenticated and . [facility]
--- NOTE | 2024-05-29 13:32 | [facility].PROCNOTE ---
[facility] Procedure Note Date: 05/29/24 Time: 12:00 Procedure Note:: Procedure: Right chest tube placement Indication for procedure: Pleural effusion and pneumothorax (hydropneumothorax) A time out was performed, and the chest x-ray was reviewed, the appropriate side was confirmed and marked. My hands were washed immediately prior to the procedure. I wore a surgical cap, mask with protective eyewear, sterile gown, and sterile gloves throughout the procedure. The patient was prepped and draped in a sterile manner using chlorhexidine scrub after the appropriate level was percussed and confirmed by ultrasound. 1% lidocaine was used to anesthetize the skin, ?subcutaneous tissue, superior aspect of the rib periosteum and parietal pleura.? A finder needle was then introduced at the?seventh intercoastal space posteriorly?to locate the pleural fluid and?blood-tinged?fluid was aspirated.?The syringe? was removed and a guidewire was advanced into the introducer needle.? ? A small incision was made at the skin surface with a scalpel and the? introducer needle was exchanged for a dilator over the guidewire. After? appropriate dilation was obtained, the dilator was exchanged over the wire for chest tube.??The chest tube in a sterile fashion was connected to atrium and suction at ?negative 20 cm water. [address] pneumothorax chest tube was used. 100 ml of?bloody-colored?fluid was removed without difficulty.? No immediate complications were noted during the procedure. A post-procedure chest X-ray is pending at the time of this note. The fluid will be sent for routine pleural studies, cultures along with cytopathology.? The chest tube was connected to an atrium with a wall suction, at a pressure of -20 cmH2O Patient tolerated the procedure well? Estimated blood loss is 15cc.
--- NOTE | 2024-05-29 15:18 | PC.NURSE ---
Chest Tube placed this AM on (R). Pleurvac to 20 cm suction. Drainage is sanguineous. Pt tolerated procedure. Pt states she has alot of anxiety from situations in the past. She has c/o nausea and a headache this afternoon. VSS. Call light within reach. Family at bedside.
[2024-05-29 15:23] LABS: Lactate Dehydrogenase 360 U/L (313-618)
[2024-05-29 15:32] LABS: Appearance,Body Fld. Bloody; Source, Body Fld. Thoracentesis Fluid
[2024-05-29 15:34] LABS: Volume,Body Fld. 100 mL
[2024-05-29 15:35] LABS: RBC,Body Fluid 46000 cells/uL (< 10 X 10^3); TNC,Body Fluid 295000 cells/uL (< 1000)
[2024-05-29 16:11] LABS: Mononuclear WBCs,Body Fluid 96 %; Polynuclear WBC,Body Fluid 4 %
[2024-05-29] MEDS: IPRATROPIUM/ALBUTEROL 3 ML NEB IH ×2 (18:32→23:21)
[2024-05-29] MEDS: BUDESONIDE 0.5MG/2ML NEB 0.5 MG IH (18:32)
[2024-05-29] MEDS: OXYCODONE 5MG W/APAP 325MG TABLET 1 EACH PO (18:36)
[2024-05-29] MEDS: NICOTINE 21MG/24HR PATCH 21 MG TD (21:22)
[2024-05-29] MEDS: HYDROMORPHONE 2MG/ML SYRINGE 0.5 MG IV (21:23)
[2024-05-30] VITALS (14 sets, daily range): BP systolic 119–147; BP diastolic 73–83; PULSE 80–93; RESP 18; TEMP 36.4–37; O2SAT 95–100; BMI 24.6
[2024-05-30] MEDS: PIPERACILLIN/TAZO 4.5 GM in 0.9 % SODIUM CHLORIDE 100 ML IV ×4 (01:12→20:26)
[2024-05-30] MEDS: OXYCODONE 5MG W/APAP 325MG TABLET 1 EACH PO (05:35)
[2024-05-30] MEDS: IPRATROPIUM/ALBUTEROL 3 ML NEB IH (06:08)
[2024-05-30] MEDS: BUDESONIDE 0.5MG/2ML NEB 0.5 MG IH ×2 (06:08→17:57)
--- NOTE | 2024-05-30 06:41 | PC.NURSE ---
A&OX4. She has remained on 1L NC with O2 sats >95%. Chest tube has remained in place at 20 cm of suction. 70 ml out this shift. She has complained of pain in back and shoulder and was medicated per MAR. Family has remained at bedside. Currently resting in bed with call light within reach.
[2024-05-30 06:49] LABS: Chloride 101 mmol/L (98-107); Potassium 4.6 mmoL/L (3.5-5.1); Sodium 139 mmol/L (136-145)
[2024-05-30 06:52] LABS: Anion Gap 10.6 mEq/L (5-15); Blood Urea Nitrogen 19 mg/dl (7-17); Calcium 9.1 mg/dl (8.4-10.2); Carbon Dioxide 32 mmol/L (22.0-30.0); Creatinine Clearance Estimated 91 mL/min (50-200); Estimated Glomerular Filt Rate 85 ml/min (>60); GFR (African American) 103 ML/MIN (>60); Glucose 100 mg/dl (74-100)
[2024-05-30 07:19] LABS: Basophils % 0.3 % (0.1-2.0); Eosinophils # 0.1 K/mm3 (0.0-0.4); Eosinophils % 0.8 % (0.1-12.0); Hematocrit 35.3 % (37.0-47.0); Hemoglobin 10.6 g/dL (12.2-16.2); Lymphocytes # 1.7 K/mm3 (0.7-4.5); Lymphocytes % 15.3 % (10-50); Mean Corpuscular Hemoglobin 27.4 pg (27.0-31.2); Mean Corpuscular Volume 91.2 fl (81-99); Mean Platelet Volume 10.3 fl (7.4-10.4); Monocytes # 0.7 K/mm3 (0.1-1.0); Monocytes % 6.7 % (1.7-9.3); Neutrophils # 8.4 K/mm3 (1.8-7.8); Neutrophils % 76.4 % (37.0-80.0); Platelet Count 502 K/mm3 (142-424); Red Blood Count 3.87 M/mm3 (4.20-5.40); Red Cell Distribution Width 13.1 % (11.5-17.5)
[2024-05-30] MEDS: ENOXAPARIN 40MG/0.4ML SYRINGE 40 MG SUBCUT (09:22)
[2024-05-30] MEDS: DOCUSATE SODIUM 100 MG CAPSULE PO (09:22)
[2024-05-30] MEDS: KETOROLAC 30MG/ML VIAL 15 MG IV (09:26)
[2024-05-30] MEDS: diazePAM 5MG TABLET 5 MG PO ×2 (09:26→20:26)
[2024-05-30 11:10] LABS: Albumin, Body Fluid 2.5 g/dL (Not Estab.); Glucose, Body Fluid 118 mg/dL (.); LD, Body Fluid 359 IU/L (.); Protein, Body Fluid 4.1 g/dL (.)
[2024-05-30] MEDS: ALBUTEROL 0.083% 2.5 MG/3 ML NEB IH ×3 (11:44→23:12)
[2024-05-30] MEDS: ONDANSETRON 4MG/2ML VIAL 4 MG IV (11:52)
[2024-05-30] MEDS: OXYCODONE 5MG W/APAP 325MG TABLET 2 EACH PO ×2 (12:11→18:47)
--- NOTE | 2024-05-30 12:52 | XR_ITS ---
PROCEDURE INFORMATION: Exam: XR Chest Exam date and time: 05/30/2024 1:05 PM Age: 58 years old Clinical indication: Other: Pneumothorax TECHNIQUE: Imaging protocol: Radiologic exam of the chest. Views: 1 view. COMPARISON: CR XR CHEST PORTABLE 05/29/2024 2:43 PM FINDINGS: Tubes, catheters and devices: Percutaneous pigtail chest tube in the inferior right hemithorax. Lungs: Consolidation and volume loss of the right lower lobe and portions of the right middle lobe. No airspace consolidation in the left lung. Pleural spaces: Small to moderate right pneumothorax. Heart/Mediastinum: Mediastinum is shifted to the right. Bones/joints: No fractures or bone lesions. IMPRESSION: 1. Small to moderate right pneumothorax has shown no significant change since yesterday. 2. Consolidation the right lung base could represent atelectasis or pneumonia.
--- NOTE | 2024-05-30 15:41 | PC.NURSE ---
Pt states pain is more tolerable and nausea has decreased since medication change. Chest tube to (R) side at 20 cm. Pt is on 1L O2 NC. Appetite is better today. Pt has voided and had a BM via BSC. Call light within reach. Family is at bedside.
--- NOTE | 2024-05-30 17:04 | P.PN_ITS ---
Subjective *Date: 05/30/24 *Time: 17:04 Interval history: Patient continues to have pain at site of chest tube insertion. Intermittent oxygen requirement of 1 L. White count 11. Denies significant chest pain. Is having nausea with pain medication administration. Labs remained stable this morning with normal kidney function. Alert and oriented x 3. Family at bedside Medical Exam Vital signs and Labs for Last 24 Hours: Vital Signs Temp Pulse Pulse Resp BP Pulse Ox O2 Del Method 05/30/24 15:00 Nasal Cannula 05/30/24 13:00 Nasal Cannula 05/30/24 12:00 90 05/30/24 11:50 97.6 F 85 18 121/73 100 Nasal Cannula 05/30/24 11:44 85 05/30/24 11:44 84 05/30/24 11:44 99 Nasal Cannula 05/30/24 11:00 Nasal Cannula 05/30/24 09:00 Room Air 05/30/24 08:00 90 05/30/24 07:25 98.6 F 93 H 18 147/83 H 100 Nasal Cannula 05/30/24 07:25 Nasal Cannula 05/30/24 06:46 Nasal Cannula 05/30/24 06:09 90 05/30/24 06:09 92 H 05/30/24 06:09 100 Nasal Cannula 05/30/24 05:00 Nasal Cannula 05/30/24 04:00 80 05/30/24 03:00 Nasal Cannula 05/30/24 01:00 Nasal Cannula 05/30/24 00:00 90 05/29/24 23:56 97.5 F L 88 18 108/65 L 95 Nasal Cannula 05/29/24 23:21 96 H 05/29/24 23:21 98 H 05/29/24 23:21 99 Nasal Cannula 05/29/24 23:00 Nasal Cannula 05/29/24 21:00 Nasal Cannula 05/29/24 20:00 100 H 05/29/24 20:00 Nasal Cannula 05/29/24 18:58 Nasal Cannula 05/29/24 18:33 98 H 05/29/24 18:33 102 H 05/29/24 18:33 98 Nasal Cannula O2 Flow Rate 05/30/24 15:00 1 05/30/24 13:00 1 05/30/24 12:00 05/30/24 11:50 2 05/30/24 11:44 05/30/24 11:44 05/30/24 11:44 1 05/30/24 11:00 1 05/30/24 09:00 05/30/24 08:00 05/30/24 07:25 1 05/30/24 07:25 1 05/30/24 06:46 1 05/30/24 06:09 05/30/24 06:09 05/30/24 06:09 1 05/30/24 05:00 1 05/30/24 04:00 05/30/24 03:00 1 05/30/24 01:00 1 05/30/24 00:00 05/29/24 23:56 05/29/24 23:21 05/29/24 23:21 05/29/24 23:21 1 05/29/24 23:00 1 05/29/24 21:00 1 05/29/24 20:00 05/29/24 20:00 1 05/29/24 18:58 2 05/29/24 18:33 05/29/24 18:33 05/29/24 18:33 1 Intake and Output 05/30/24 05/30/24 05/30/24 07:59 15:59 23:59 Intake Total 100 / 770 670 / 770 Output Total 0 / 0 0 / 0 Balance 100 / 770 670 / 770 Intake: Intake, Oral Amount 670 / 670 Intake, Total IV Amount 100 / 100 Piperacillin/Tazo 4.5 gm In 0.9 100 / 100 % Sodium Chloride 100 ml @ 200 mls/hr IV Q6H [facility] Rx#:[id number] Output: Output, Urine Amount 0 / 0 0 / 0 Other: Number of Unmeasured Voids 1 Number of Bowel Movements 1 Weight 67.177 kg Patient Weight 05/30/24 23:59 Weight 67.177 kg Laboratory Results - last 24 hr 05/29/24 12:25: Fluid Glucose 118, Fluid Total Protein 4.1, Fluid Albumin 2.5, Fluid LDH 359 05/30/24 06:19: WBC 11.0 H D, RBC 3.87 L, Hgb 10.6 L, Hct 35.3 L, MCV 91.2, MCH 27.4, MCHC 30.0 L, RDW 13.1, Plt Count 502 H, MPV 10.3, Neut % (Auto) 76.4, Lymph % (Auto) 15.3, [place] % (Auto) 6.7, Eos % (Auto) 0.8, Baso % (Auto) 0.3, Neut # (Auto) 8.4 H, Lymph # (Auto) 1.7, [place] # (Auto) 0.7, Eos # (Auto) 0.1, Baso # (Auto) 0.0, Sodium 139, Potassium 4.6, Chloride 101, Carbon Dioxide 32 H, Anion Gap 10.6, BUN 19 H D, Creatinine 0.70, Estimated Creat Clear 91, Estimated GFR 85, Est GFR ( Amer) 103, Glucose 100 D, Calcium 9.1 I & O for Labs for Last 24 Hours: Intake & Output 05/27/24 05/28/24 05/29/24 05/30/24 23:59 23:59 23:59 23:59 Intake Total 960 / 1060 770 / 770 Output Total 1350 / 1350 0 / 0 Balance -390 / -290 770 / 770 Weight 65.862 kg 65.7 kg 67.177 kg Microbiology Reports for the Last 24 Hours: Microbiology 05/29/24 12:25 Thoracic Fluid Gram Stain - Final 05/29/24 12:25 Thoracic Fluid Body Fluid Culture - Preliminary NO GROWTH AFTER 24 HOURS 05/28/24 19:29 Blood Blood Culture - Preliminary NO GROWTH AFTER 24 HOURS 05/28/24 19:29 Blood Blood Culture - Preliminary NO GROWTH AFTER 24 HOURS Constitutional: Present mild distress, average body habitus, chronically ill appearing and cooperative Head: Present atraumatic and normocephalic ENT: Present normal exam Respiratory: Present wheezes and diminished air movement; Absent rhonchi or crackles Comment:: Wheeze prominent in the left lung field, present air movement sounds in right upper lung field but absent in right lower field Cardiac: Present Reg Rate and Rhythm GI: Present soft and normal bowel sounds; Absent distention or tenderness Extremities: Present normal inspection and full ROM Skin: Present intact; Absent erythema Neuro: Present Grossly Intact, alert, awake, oriented x 3 and moves all ext remities Assessment and Plan *Assessment and plan (1) Mass of right lung: Status: Acute Category: Medical Code(s): R91.8 - Other nonspecific abnormal finding of lung field (2) Hydropneumothorax: Status: Acute Category: Medical Code(s): J94.8 - Other specified pleural conditions (3) Tobacco dependence: Status: Acute Category: Medical Code(s): F17.200 - Nicotine dependence, unspecified, uncomplicated (4) COPD (chronic obstructive pulmonary disease): Status: Acute Category: Medical Code(s): J44.9 - Chronic obstructive pulmonary disease, unspecified (5) Severe protein-calorie malnutrition: Status: Acute Category: Medical Code(s): E43 - Unspecified severe protein-calorie malnutrition (6) Lung collapse: Status: Acute Category: Medical Code(s): J98.19 - Other pulmonary collapse (7) Pneumonia: Status: Acute Category: Medical Code(s): J18.9 - Pneumonia, unspecified organism Plan The patient is a 58-year-old female with a history of head and neck cancer (status post radical neck surgery on the left), ongoing tobacco use, COPD (not on home oxygen), and a previously diagnosed right lung mass, presenting with progressive dyspnea over the past three days, now occurring at rest. Imaging reveals a hydropneumothorax, pleural effusion, and a large mediastinal and hilar mass encasing the central airways and pulmonary arteries. Chest tube with over 1500 cc in Pleur-evac. Tolerating intermittent oxygen. Continues to require patient management. Problems addressed as follows: Large mediastinal and hilar mass with hydropneumothorax and pleural effusion Post-obstructive Pneumonia COPD -Per my review of chest x-ray from today, has persistent pneumothorax on the right side. Hyperexpansion of left lung. Improvement in effusion. - Findings most concerning for malignancy with obstructive process to the right lung along with malignant effusion. Continue Zosyn pending sputum and pleural fluid cultures. -States DuoNebs make her nauseous, transition to albuterol every 6 hours scheduled and Pulmicort twice daily -Chest tube remains in place, serous fluid in tube. Continue suction at -20 mm water - Zosyn 4.5gm q6h -White count with slight bump to 11, hemoglobin 10.6. Kidney function normal with BUN 19, creatinine 0.7. repeat CBC, CMP, magnesium ordered for the morning - blood and pleural fluid cultures pending; cytology pending on pleural fluid - supplemental O2 as needed, on 1L, goal sats >90% Anxiety disorder: Continue Valium 5 mg as needed twice daily and trazodone nightly for sleep per home regimen Normocytic anemia: Hemoglobin relatively stable at 10.6. No signs of active bleeding Severe protein calorie malnutrition - nutrition consulted -Regular diet with protein supplement with meals Full code Regular diet with supplementation Continue Lovenox 40 mg daily
[2024-05-31] VITALS (12 sets, daily range): BP systolic 106–126; BP diastolic 64–74; PULSE 80–91; RESP 16–18; TEMP 36.4–36.8; O2SAT 96–100; BMI 25.6
[2024-05-31] MEDS: OXYCODONE 5MG W/APAP 325MG TABLET 2 EACH PO ×3 (01:19→20:05)
[2024-05-31] MEDS: ONDANSETRON 4MG/2ML VIAL 4 MG IV ×3 (01:19→20:05)
[2024-05-31] MEDS: PIPERACILLIN/TAZO 4.5 GM in 0.9 % SODIUM CHLORIDE 100 ML IV ×4 (01:20→20:02)
[2024-05-31] MEDS: KETOROLAC 30MG/ML VIAL 15 MG IV ×2 (05:20→17:41)
--- NOTE | 2024-05-31 05:58 | PC.NURSE ---
V/S, ox4, family at bedside. Pt's chest tube insertion site remains clean & dry. Chest tube output was 100ml this shift. Pt continues to c/o moderate to severe pain and has been treated per MAR. Plan of care ongoing.
--- NOTE | 2024-05-31 06:00 | XR_ITS ---
PROCEDURE INFORMATION: Exam: XR Chest Exam date and time: 05/31/2024 6:13 AM Age: 58 years old Clinical indication: Other: Hydropneumothorax TECHNIQUE: Imaging protocol: Radiologic exam of the chest. Views: 1 view. COMPARISON: CR XR CHEST PORTABLE 05/30/2024 1:05 PM FINDINGS: Tubes, catheters and devices: Right-sided pleural drain is present. Lungs: There are minimal airspace opacities in the right lower lobe. Left lung is clear. Pleural spaces: There is stable small right pneumothorax. Heart/Mediastinum: There is no cardiomegaly. Bones/joints: Unremarkable. IMPRESSION: Stable small right pneumothorax along with airspace opacities in the right lower lobe.
[2024-05-31] MEDS: BUDESONIDE 0.5MG/2ML NEB 0.5 MG IH ×2 (06:09→18:11)
[2024-05-31] MEDS: ALBUTEROL 0.083% 2.5 MG/3 ML NEB IH ×4 (06:09→23:14)
[2024-05-31] MEDS: DOCUSATE SODIUM 100 MG CAPSULE PO (08:04)
[2024-05-31] MEDS: ENOXAPARIN 40MG/0.4ML SYRINGE 40 MG SUBCUT (08:04)
[2024-05-31 08:38] LABS: Basophils # 0.1 K/mm3 (0-0.2); Basophils % 1.2 % (0.1-2.0); Eosinophils # 0.4 K/mm3 (0.0-0.4); Hematocrit 33.9 % (37.0-47.0); Hemoglobin 10.3 g/dL (12.2-16.2); Lymphocytes % 26.6 % (10-50); Mean Corpuscular HGB Conc 30.4 g/dL (31.8-35.4); Mean Corpuscular Hemoglobin 27.5 pg (27.0-31.2); Mean Corpuscular Volume 90.6 fl (81-99); Mean Platelet Volume 10.2 fl (7.4-10.4); Monocytes # 0.6 K/mm3 (0.1-1.0); Monocytes % 8.6 % (1.7-9.3); Neutrophils # 4.2 K/mm3 (1.8-7.8); Neutrophils % 57.3 % (37.0-80.0); Platelet Count 473 K/mm3 (142-424); Red Blood Count 3.74 M/mm3 (4.20-5.40); White Blood Count 7.3 K/mm3 (4.8-10.8)
[2024-05-31 08:46] LABS: Chloride 103 mmol/L (98-107); Sodium 139 mmol/L (136-145)
[2024-05-31 08:49] LABS: Blood Urea Nitrogen 13 mg/dl (7-17); Calcium 8.6 mg/dl (8.4-10.2); Carbon Dioxide 30 mmol/L (22.0-30.0); Creatinine Clearance Estimated 94 mL/min (50-200); Estimated Glomerular Filt Rate 85 ml/min (>60); GFR (African American) 103 ML/MIN (>60); Glucose 107 mg/dl (74-100)
--- NOTE | 2024-05-31 10:16 | P.PN_ITS ---
Subjective *Date: 05/31/24 *Time: 12:11 Interval history: Some improvement in pain on current regimen. Only requiring 1 L oxygen. White count improved to normal today. Denies nausea or vomiting. Afebrile. Alert and oriented x 3. Family at bedside Medical Exam Vital signs and Labs for Last 24 Hours: Vital Signs Temp Pulse Pulse Resp BP Pulse Ox O2 Del Method 05/31/24 07:52 98.2 F 88 18 115/68 98 Nasal Cannula 05/31/24 06:48 Nasal Cannula 05/31/24 06:10 82 05/31/24 06:10 91 H 05/31/24 06:10 98 Nasal Cannula 05/31/24 05:00 Nasal Cannula 05/31/24 04:00 80 05/31/24 04:00 97.7 F 87 16 113/64 96 Nasal Cannula 05/31/24 03:00 Nasal Cannula 05/31/24 01:00 Nasal Cannula 05/31/24 00:00 97.5 F L 83 16 126/66 98 Room Air 05/31/24 00:00 90 05/30/24 23:58 Nasal Cannula 05/30/24 23:51 88 05/30/24 23:51 81 05/30/24 23:00 Nasal Cannula 05/30/24 21:08 Nasal Cannula 05/30/24 21:00 Nasal Cannula 05/30/24 20:00 95 Nasal Cannula 05/30/24 20:00 90 05/30/24 19:54 97.5 F L 91 H 18 119/73 95 Room Air 05/30/24 18:34 Room Air 05/30/24 18:15 83 05/30/24 18:00 84 05/30/24 17:00 Nasal Cannula 05/30/24 16:00 97.6 F 85 18 121/73 100 Nasal Cannula 05/30/24 16:00 90 05/30/24 15:00 Nasal Cannula 05/30/24 13:00 Nasal Cannula 05/30/24 12:00 90 05/30/24 11:50 97.6 F 85 18 121/73 100 Nasal Cannula 05/30/24 11:44 85 05/30/24 11:44 84 05/30/24 11:44 99 Nasal Cannula 05/30/24 11:00 Nasal Cannula O2 Flow Rate 05/31/24 07:52 1 05/31/24 06:48 1 05/31/24 06:10 05/31/24 06:10 05/31/24 06:10 1 05/31/24 05:00 1 05/31/24 04:00 05/31/24 04:00 1 05/31/24 03:00 1 05/31/24 01:00 1 05/31/24 00:00 05/31/24 00:00 05/30/24 23:58 1 05/30/24 23:51 05/30/24 23:51 05/30/24 23:00 1 05/30/24 21:08 1 05/30/24 21:00 1 05/30/24 20:00 1 05/30/24 20:00 05/30/24 19:54 2 05/30/24 18:34 05/30/24 18:15 05/30/24 18:00 05/30/24 17:00 1 05/30/24 16:00 05/30/24 16:00 05/30/24 15:00 1 05/30/24 13:00 1 05/30/24 12:00 05/30/24 11:50 2 05/30/24 11:44 05/30/24 11:44 05/30/24 11:44 1 05/30/24 11:00 1 Intake and Output 05/30/24 05/31/24 05/31/24 23:59 07:59 15:59 Intake Total 980 / 1750 610 / 610 Output Total 211 / 211 100 / 100 0 / 100 Balance 769 / 1539 510 / 510 0 / 510 Intake: Intake, Oral Amount 880 / 1550 510 / 510 Intake, Total IV Amount 100 / 200 100 / 100 Piperacillin/Tazo 4.5 gm In 0.9 100 / 200 100 / 100 % Sodium Chloride 100 ml @ 200 mls/hr IV Q6H [facility] Rx#:[id number] Output: Output, Urine Amount 1 / 1 0 / 0 0 / 0 Output, Chest Tube Drainage 210 / 210 100 / 100 Amount Right Posterior Chest 210 / 210 100 / 100 Other: Number of Unmeasured Voids 1 1 Number of Bowel Movements 1 1 Weight 69.717 kg Patient Weight 05/31/24 23:59 Weight 69.717 kg Laboratory Results - last 24 hr 05/29/24 12:25: Fluid Glucose 118, Fluid Total Protein 4.1, Fluid Albumin 2.5, Fluid LDH 359 05/31/24 07:00: WBC 7.3 D, RBC 3.74 L, Hgb 10.3 L, Hct 33.9 L, MCV 90.6, MCH 27.5, MCHC 30.4 L, RDW 13.0, Plt Count 473 H, MPV 10.2, Neut % (Auto) 57.3, Lymph % (Auto) 26.6, [place] % (Auto) 8.6, Eos % (Auto) 6.0, Baso % (Auto) 1.2, Neut # (Auto) 4.2, Lymph # (Auto) 2.0, [place] # (Auto) 0.6, Eos # (Auto) 0.4, Baso # (Auto) 0.1, Sodium 139, Potassium 4.0, Chloride 103, Carbon Dioxide 30, Anion Gap 10.0, BUN 13 D, Creatinine 0.70, Estimated Creat Clear 94, Estimated GFR 85, Est GFR ( Amer) 103, Glucose 107 H, Calcium 8.6 I & O for Labs for Last 24 Hours: Intake & Output 05/28/24 05/29/24 05/30/24 05/31/24 23:59 23:59 23:59 23:59 Intake Total 960 / 1060 1750 / 1750 610 / 610 Output Total 1350 / 1350 211 / 211 100 / 100 Balance -390 / -290 1539 / 1539 510 / 510 Weight 65.862 kg 65.7 kg 67.177 kg 69.717 kg Microbiology Reports for the Last 24 Hours: Microbiology 05/28/24 19:29 Blood Blood Culture - Preliminary NO GROWTH AFTER 48 HOURS 05/28/24 19:29 Blood Blood Culture - Preliminary NO GROWTH AFTER 48 HOURS 05/29/24 12:25 Thoracic Fluid Gram Stain - Final 05/29/24 12:25 Thoracic Fluid Body Fluid Culture - Preliminary NO GROWTH AFTER 24 HOURS Constitutional: Present no acute distress, average body habitus, chronically ill appearing and cooperative Head: Present atraumatic and normocephalic ENT: Present normal exam Respiratory: Present wheezes and diminished air movement; Absent rhonchi or crackles Comment:: Wheeze improving in the left lung field, present air movement sounds in right upper lung field but absent in right lower field Cardiac: Present Reg Rate and Rhythm GI: Present soft and normal bowel sounds; Absent distention or tenderness Extremities: Present normal inspection and full ROM Skin: Present intact; Absent erythema Neuro: Present Grossly Intact, alert, awake, oriented x 3 and moves all e xtremities Assessment and Plan *Assessment and plan (1) Mass of right lung: Status: Acute Category: Medical Code(s): R91.8 - Other nonspecific abnormal finding of lung field (2) Hydropneumothorax: Status: Acute Category: Medical Code(s): J94.8 - Other specified pleural conditions (3) Tobacco dependence: Status: Acute Category: Medical Code(s): F17.200 - Nicotine dependence, unspecified, uncomplicated (4) COPD (chronic obstructive pulmonary disease): Status: Acute Category: Medical Code(s): J44.9 - Chronic obstructive pulmonary disease, unspecified (5) Severe protein-calorie malnutrition: Status: Acute Category: Medical Code(s): E43 - Unspecified severe protein-calorie malnutrition (6) Lung collapse: Status: Acute Category: Medical Code(s): J98.19 - Other pulmonary collapse (7) Pneumonia: Status: Acute Category: Medical Code(s): J18.9 - Pneumonia, unspecified organism Plan The patient is a 58-year-old female with a history of head and neck cancer (status post radical neck surgery on the left), ongoing tobacco use, COPD (not on home oxygen), and a previously diagnosed right lung mass, presenting with progressive dyspnea over the past three days, now occurring at rest. Imaging reveals a hydropneumothorax, pleural effusion, and a large mediastinal and hilar mass encasing the central airways and pulmonary arteries. Chest tube with over 300 cc of output in the past 24 hours. Tolerating intermittent oxygen. Continues to require patient management. Problems addressed as follows: Large mediastinal and hilar mass with hydropneumothorax and pleural effusion Post-obstructive Pneumonia COPD - Per my review of chest x-ray from today, has persistent pneumothorax on the right side. Hyperexpansion of left lung. No appreciable effusion - Findings most concerning for malignancy with obstructive process to the right lung along with malignant effusion. Continue Zosyn pending sputum and pleural fluid cultures. -Continue albuterol every 6 hours scheduled and Pulmicort twice daily -Chest tube remains in place, serous fluid in tube. Continue suction at -20 mm water - Zosyn 4.5gm q6h -White count improved today to 7.3. Hemoglobin 10.3. Kidney function normal with BUN 13, creatinine 0.7. repeat CBC, CMP, magnesium ordered for the morning - blood and pleural fluid cultures pending; cytology pending on pleural fluid - supplemental O2 as needed, on 1L, goal sats >90% Anxiety disorder: Continue Valium 5 mg as needed twice daily and trazodone nightly for sleep per home regimen Normocytic anemia: Hemoglobin relatively stable at 10.3. No signs of active bleeding Severe protein calorie malnutrition - nutrition consulted -Regular diet with protein supplement with meals Full code Regular diet with supplementation Continue Lovenox 40 mg daily
[2024-05-31] MEDS: SODIUM CHLORIDE 3% 15ML NEB 3 ML IH (11:20)
[2024-05-31] MEDS: diazePAM 5MG TABLET 5 MG PO (17:41)
[2024-06-01] VITALS (12 sets, daily range): BP systolic 94–141; BP diastolic 55–76; PULSE 71–100; RESP 16–20; TEMP 36.4–36.9; O2SAT 96–100; BMI 24.0
[2024-06-01] MEDS: PIPERACILLIN/TAZO 4.5 GM in 0.9 % SODIUM CHLORIDE 100 ML IV ×4 (02:42→20:48)
[2024-06-01] MEDS: OXYCODONE 5MG W/APAP 325MG TABLET 2 EACH PO ×3 (02:42→20:50)
[2024-06-01] MEDS: ONDANSETRON 4MG/2ML VIAL 4 MG IV ×2 (02:44→08:12)
--- NOTE | 2024-06-01 04:12 | PC.NURSE ---
Pt is alert and oriented and currently tolerating 1LNC at this time and sating 95-100%. Pt lungs sounds remain diminished with expiratory wheezes bilateral. Pt continues to c/o moderate to severe pain at insertion site and has been treated per JUN. Pt did request medication for anxiety this shift and was treated per JUN.
--- NOTE | 2024-06-01 04:20 | PC.NURSE ---
Pt chest tube remains in place to right side @ 20cm, Pt has had 70ml out thus far this shift.
[2024-06-01] MEDS: ALBUTEROL 0.083% 2.5 MG/3 ML NEB IH ×4 (06:09→23:15)
[2024-06-01] MEDS: BUDESONIDE 0.5MG/2ML NEB 0.5 MG IH ×2 (06:09→18:29)
[2024-06-01 06:58] LABS: Basophils # 0.1 K/mm3 (0-0.2); Eosinophils # 0.5 K/mm3 (0.0-0.4); Eosinophils % 6.8 % (0.1-12.0); Hematocrit 34.3 % (37.0-47.0); Hemoglobin 10.6 g/dL (12.2-16.2); Lymphocytes # 1.7 K/mm3 (0.7-4.5); Lymphocytes % 23.7 % (10-50); Mean Corpuscular HGB Conc 30.9 g/dL (31.8-35.4); Mean Corpuscular Hemoglobin 28.6 pg (27.0-31.2); Mean Corpuscular Volume 92.7 fl (81-99); Mean Platelet Volume 9.8 fl (7.4-10.4); Monocytes # 0.6 K/mm3 (0.1-1.0); Monocytes % 8.7 % (1.7-9.3); Neutrophils # 4.2 K/mm3 (1.8-7.8); Neutrophils % 59.5 % (37.0-80.0); Platelet Count 458 K/mm3 (142-424); Red Cell Distribution Width 13.1 % (11.5-17.5); White Blood Count 7.1 K/mm3 (4.8-10.8)
[2024-06-01 07:01] LABS: Chloride 102 mmol/L (98-107); Potassium 3.9 mmoL/L (3.5-5.1); Sodium 139 mmol/L (136-145)
[2024-06-01 07:04] LABS: Anion Gap 5.9 mEq/L (5-15); Blood Urea Nitrogen 9 mg/dl (7-17); Calcium 8.4 mg/dl (8.4-10.2); Carbon Dioxide 35 mmol/L (22.0-30.0); Creatinine Clearance Estimated 88 mL/min (50-200); Estimated Glomerular Filt Rate 85 ml/min (>60); GFR (African American) 103 ML/MIN (>60); Glucose 95 mg/dl (74-100)
--- NOTE | 2024-06-01 07:26 | P.PN_ITS ---
Subjective *Date: 06/01/24 *Time: 07:26 Medical Exam Vital signs and Labs for Last 24 Hours: Vital Signs Temp Pulse Pulse Resp BP Pulse Ox O2 Del Method 06/01/24 06:33 Nasal Cannula 06/01/24 06:09 82 06/01/24 06:09 88 06/01/24 06:09 99 Nasal Cannula 06/01/24 05:00 Nasal Cannula 06/01/24 04:00 90 06/01/24 04:00 97.5 F L 88 16 123/76 99 Nasal Cannula 06/01/24 02:57 Nasal Cannula 06/01/24 01:00 Nasal Cannula 06/01/24 00:00 100 Nasal Cannula 06/01/24 00:00 97.7 F 88 16 113/66 98 Nasal Cannula 06/01/24 00:00 80 05/31/24 23:14 84 05/31/24 23:14 86 05/31/24 23:00 Nasal Cannula 05/31/24 20:52 Nasal Cannula 05/31/24 20:00 97.5 F L 91 H 16 123/74 98 Nasal Cannula 05/31/24 20:00 97 Nasal Cannula 05/31/24 20:00 90 05/31/24 18:50 Nasal Cannula 05/31/24 18:11 87 05/31/24 18:11 89 05/31/24 18:11 97 Nasal Cannula 05/31/24 17:00 Nasal Cannula 05/31/24 16:00 80 05/31/24 16:00 97.7 F 89 17 125/72 100 Nasal Cannula 05/31/24 15:00 Nasal Cannula 05/31/24 13:00 Nasal Cannula 05/31/24 12:00 90 05/31/24 11:49 97.8 F 89 17 106/69 L 98 Nasal Cannula 05/31/24 11:20 97 Nasal Cannula 05/31/24 11:00 Nasal Cannula 05/31/24 09:00 Nasal Cannula 05/31/24 08:03 Nasal Cannula 05/31/24 08:00 80 05/31/24 07:52 98.2 F 88 18 115/68 98 Nasal Cannula O2 Flow Rate 06/01/24 06:33 1 06/01/24 06:09 06/01/24 06:09 06/01/24 06:09 1 06/01/24 05:00 1 06/01/24 04:00 06/01/24 04:00 1 06/01/24 02:57 1 06/01/24 01:00 1 06/01/24 00:00 1 06/01/24 00:00 1 06/01/24 00:00 05/31/24 23:14 05/31/24 23:14 05/31/24 23:00 1 05/31/24 20:52 1 05/31/24 20:00 1 05/31/24 20:00 1 05/31/24 20:00 05/31/24 18:50 1 05/31/24 18:11 05/31/24 18:11 05/31/24 18:11 1 05/31/24 17:00 1 05/31/24 16:00 05/31/24 16:00 1 05/31/24 15:00 1 05/31/24 13:00 1 05/31/24 12:00 05/31/24 11:49 05/31/24 11:20 1 05/31/24 11:00 1 05/31/24 09:00 1 05/31/24 08:03 1 05/31/24 08:00 05/31/24 07:52 1 Intake and Output 05/31/24 05/31/24 06/01/24 15:59 23:59 07:59 Intake Total 270 / 2050 710 / 2050 460 / 460 Output Total 0 / 280 180 / 280 70 / 70 Balance 270 / 1770 530 / 1770 390 / 390 Intake: Intake, Oral Amount 270 / 1650 510 / 1650 360 / 360 Intake, Total IV Amount 200 / 400 100 / 100 Piperacillin/Tazo 4.5 gm In 0.9 200 / 400 100 / 100 % Sodium Chloride 100 ml @ 200 mls/hr IV Q6H [facility] Rx#:[id number] Output: Output, Urine Amount 0 / 0 0 / 0 0 / 0 Output, Chest Tube Drainage 180 / 280 70 / 70 Amount Right Posterior Chest 180 / 280 70 / 70 Other: Number of Unmeasured Voids 1 1 Weight 65.317 kg Patient Weight 06/01/24 23:59 Weight 65.317 kg Laboratory Results - last 24 hr 05/31/24 07:00: WBC 7.3 D, RBC 3.74 L, Hgb 10.3 L, Hct 33.9 L, MCV 90.6, MCH 27.5, MCHC 30.4 L, RDW 13.0, Plt Count 473 H, MPV 10.2, Neut % (Auto) 57.3, Lymph % (Auto) 26.6, [place] % (Auto) 8.6, Eos % (Auto) 6.0, Baso % (Auto) 1.2, Neut # (Auto) 4.2, Lymph # (Auto) 2.0, [place] # (Auto) 0.6, Eos # (Auto) 0.4, Baso # (Auto) 0.1, Sodium 139, Potassium 4.0, Chloride 103, Carbon Dioxide 30, Anion Gap 10.0, BUN 13 D, Creatinine 0.70, Estimated Creat Clear 94, Estimated GFR 85, Est GFR ( Amer) 103, Glucose 107 H, Calcium 8.6 06/01/24 06:37: WBC 7.1, RBC 3.70 L, Hgb 10.6 L, Hct 34.3 L, MCV 92.7, MCH 28.6, MCHC 30.9 L, RDW 13.1, Plt Count 458 H, MPV 9.8, Neut % (Auto) 59.5, Lymph % (Auto) 23.7, [place] % (Auto) 8.7, Eos % (Auto) 6.8, Baso % (Auto) 1.0, Neut # (Auto) 4.2, Lymph # (Auto) 1.7, [place] # (Auto) 0.6, Eos # (Auto) 0.5 H, Baso # (Auto) 0.1, Sodium 139, Potassium 3.9, Chloride 102, Carbon Dioxide 35 H, Anion Gap 5.9, BUN 9 D, Creatinine 0.70, Estimated Creat Clear 88, Estimated GFR 85, Est GFR ( Amer) 103, Glucose 95, Calcium 8.4 I & O for Labs for Last 24 Hours: Intake & Output 05/29/24 05/30/24 05/31/24 06/01/24 23:59 23:59 23:59 23:59 Intake Total 960 / 1060 1750 / 1750 1590 / 2050 460 / 460 Output Total 1350 / 1350 211 / 211 280 / 280 70 / 70 Balance -390 / -290 1539 / 1539 1310 / 1770 390 / 390 Weight 65.7 kg 67.177 kg 69.717 kg 65.317 kg Microbiology Reports for the Last 24 Hours: Microbiology 05/31/24 17:22 Sputum - Expectorated Sputum Gram Stain - Final 05/29/24 12:25 Thoracic Fluid Gram Stain - Final 05/29/24 12:25 Thoracic Fluid Body Fluid Culture - Preliminary NO GROWTH AFTER 48 HOURS The patient's infection will respond to the chosen ABx?: Yes Is the patient receiving the right drug, dose, and route?: Yes Could a more targeted ABx be ordered?: No
[2024-06-01] MEDS: DOCUSATE SODIUM 100 MG CAPSULE PO (08:05)
[2024-06-01] MEDS: ENOXAPARIN 40MG/0.4ML SYRINGE 40 MG SUBCUT (08:05)
--- NOTE | 2024-06-01 09:16 | P.PN_ITS ---
Subjective *Date: 06/01/24 *Time: 12:29 Interval history: No fever overnight. No nausea or vomiting. States she was able to cough up some phlegm last night. Back pain stable. Stable oxygen requirement of 1 L. Decreased output and chest tube Medical Exam Vital signs and Labs for Last 24 Hours: Vital Signs Temp Pulse Pulse Resp BP Pulse Ox O2 Del Method 06/01/24 08:00 90 06/01/24 06:33 Nasal Cannula 06/01/24 06:09 82 06/01/24 06:09 88 06/01/24 06:09 99 Nasal Cannula 06/01/24 05:00 Nasal Cannula 06/01/24 04:00 90 06/01/24 04:00 97.5 F L 88 16 123/76 99 Nasal Cannula 06/01/24 02:57 Nasal Cannula 06/01/24 01:00 Nasal Cannula 06/01/24 00:00 100 Nasal Cannula 06/01/24 00:00 97.7 F 88 16 113/66 98 Nasal Cannula 06/01/24 00:00 80 05/31/24 23:14 84 05/31/24 23:14 86 05/31/24 23:00 Nasal Cannula 05/31/24 20:52 Nasal Cannula 05/31/24 20:00 97.5 F L 91 H 16 123/74 98 Nasal Cannula 05/31/24 20:00 97 Nasal Cannula 05/31/24 20:00 90 05/31/24 18:50 Nasal Cannula 05/31/24 18:11 87 05/31/24 18:11 89 05/31/24 18:11 97 Nasal Cannula 05/31/24 17:00 Nasal Cannula 05/31/24 16:00 80 05/31/24 16:00 97.7 F 89 17 125/72 100 Nasal Cannula 05/31/24 15:00 Nasal Cannula 05/31/24 13:00 Nasal Cannula 05/31/24 12:00 90 05/31/24 11:49 97.8 F 89 17 106/69 L 98 Nasal Cannula 05/31/24 11:20 97 Nasal Cannula 05/31/24 11:00 Nasal Cannula O2 Flow Rate 06/01/24 08:00 06/01/24 06:33 1 06/01/24 06:09 06/01/24 06:09 06/01/24 06:09 1 06/01/24 05:00 1 06/01/24 04:00 06/01/24 04:00 1 06/01/24 02:57 1 06/01/24 01:00 1 06/01/24 00:00 1 06/01/24 00:00 1 06/01/24 00:00 05/31/24 23:14 05/31/24 23:14 05/31/24 23:00 1 05/31/24 20:52 1 05/31/24 20:00 1 05/31/24 20:00 1 05/31/24 20:00 05/31/24 18:50 1 05/31/24 18:11 05/31/24 18:11 05/31/24 18:11 1 05/31/24 17:00 1 05/31/24 16:00 05/31/24 16:00 1 05/31/24 15:00 1 05/31/24 13:00 1 05/31/24 12:00 05/31/24 11:49 05/31/24 11:20 1 05/31/24 11:00 1 Intake and Output 05/31/24 06/01/24 06/01/24 23:59 07:59 15:59 Intake Total 710 / 2050 460 / 820 360 / 820 Output Total 180 / 280 70 / 70 Balance 530 / 1770 390 / 750 360 / 750 Intake: Intake, Oral Amount 510 / 1650 360 / 630 270 / 630 Intake, Total IV Amount 200 / 400 100 / 190 90 / 190 Piperacillin/Tazo 4.5 gm In 0.9 200 / 400 100 / 190 90 / 190 % Sodium Chloride 100 ml @ 200 mls/hr IV Q6H [facility] Rx#:[id number] Output: Output, Urine Amount 0 / 0 0 / 0 Output, Chest Tube Drainage 180 / 280 70 / 70 Amount Right Posterior Chest 180 / 280 70 / 70 Other: Number of Unmeasured Voids 1 1 1 Weight 65.317 kg Patient Weight 06/01/24 23:59 Weight 65.317 kg Laboratory Results - last 24 hr 06/01/24 06:37: WBC 7.1, RBC 3.70 L, Hgb 10.6 L, Hct 34.3 L, MCV 92.7, MCH 28.6, MCHC 30.9 L, RDW 13.1, Plt Count 458 H, MPV 9.8, Neut % (Auto) 59.5, Lymph % (Auto) 23.7, [place] % (Auto) 8.7, Eos % (Auto) 6.8, Baso % (Auto) 1.0, Neut # (Auto) 4.2, Lymph # (Auto) 1.7, [place] # (Auto) 0.6, Eos # (Auto) 0.5 H, Baso # (Auto) 0.1, Sodium 139, Potassium 3.9, Chloride 102, Carbon Dioxide 35 H, Anion Gap 5.9, BUN 9 D, Creatinine 0.70, Estimated Creat Clear 88, Estimated GFR 85, Est GFR ( Amer) 103, Glucose 95, Calcium 8.4 I & O for Labs for Last 24 Hours: Intake & Output 05/29/24 05/30/24 05/31/24 06/01/24 23:59 23:59 23:59 23:59 Intake Total 960 / 1060 1750 / 1750 1590 / 2050 820 / 820 Output Total 1350 / 1350 211 / 211 280 / 280 70 / 70 Balance -390 / -290 1539 / 1539 1310 / 1770 750 / 750 Weight 65.7 kg 67.177 kg 69.717 kg 65.317 kg Microbiology Reports for the Last 24 Hours: Microbiology 05/31/24 17:22 Sputum - Expectorated Sputum Gram Stain - Final 05/29/24 12:25 Thoracic Fluid Gram Stain - Final 05/29/24 12:25 Thoracic Fluid Body Fluid Culture - Preliminary NO GROWTH AFTER 48 HOURS Constitutional: Present no acute distress, average body habitus, chronically ill appearing and cooperative Head: Present atraumatic and normocephalic ENT: Present normal exam Respiratory: Present rhonchi, wheezes and diminished air movement; Absent crackles Comment:: Wheeze persistent. No change today. Good air movement left lung field. Minimal air movement in right lung field Cardiac: Present Reg Rate and Rhythm GI: Present soft and normal bowel sounds; Absent distention or tenderness Extremities: Present normal inspection and full ROM Skin: Present intact; Absent erythema Neuro: Present Grossly Intact, alert, awake, oriented x 3 and moves all extremities Assessment and Plan *Assessment and plan (1) Mass of right lung: Status: Acute Category: Medical Code(s): R91.8 - Other nonspecific abnormal finding of lung field (2) Hydropneumothorax: Status: Acute Category: Medical Code(s): J94.8 - Other specified pleural conditions (3) Tobacco dependence: Status: Acute Category: Medical Code(s): F17.200 - Nicotine dependence, unspecified, uncomplicated (4) COPD (chronic obstructive pulmonary disease): Status: Acute Category: Medical Code(s): J44.9 - Chronic obstructive pulmonary disease, unspecified (5) Severe protein-calorie malnutrition: Status: Acute Category: Medical Code(s): E43 - Unspecified severe protein-calorie malnutrition (6) Lung collapse: Status: Acute Category: Medical Code(s): J98.19 - Other pulmonary collapse (7) Pneumonia: Status: Acute Category: Medical Code(s): J18.9 - Pneumonia, unspecified organism Plan The patient is a 58-year-old female with a history of head and neck cancer (status post radical neck surgery on the left), ongoing tobacco use, COPD (not on home oxygen), and a previously diagnosed right lung mass, presenting with progressive dyspnea over the past three days, now occurring at rest. Imaging reveals a hydropneumothorax, pleural effusion, and a large mediastinal and hilar mass encasing the central airways and pulmonary arteries. Chest x-ray showing persistent pneumothorax. Tolerating 1 L oxygen. Continues to require patient management. Problems addressed as follows: Large mediastinal and hilar mass with hydropneumothorax and pleural effusion Post-obstructive Pneumonia COPD - Per my review of chest x-ray from today, has persistent pneumothorax on the right side. Hyperexpansion of left lung. No appreciable effusion -Discussed case with pulmonology, recommend CT of the chest to evaluate pneumothorax. Will consider small anterior pigtail. Increase suction to -40 cm water. He reposition chest tube this morning. -Continue albuterol every 6 hours scheduled and Pulmicort twice daily - Zosyn 4.5gm q6h -White count normal at 7.1, hemoglobin 10.6. repeat CBC, CMP, magnesium ordered for the morning - blood and pleural fluid cultures pending; cytology on pleural fluid shows inflammation and mesothelial cells. No malignant cells were identified. - supplemental O2 as needed, on 1L, goal sats >90% Anxiety disorder: Continue Valium 5 mg as needed twice daily and trazodone night ly for sleep per home regimen Normocytic anemia: Hemoglobin relatively stable at 10.6. No signs of active bleeding Severe protein calorie malnutrition - nutrition consulted -Regular diet with protein supplement with meals Full code Regular diet with supplementation Continue Lovenox 40 mg daily
--- NOTE | 2024-06-01 09:42 | EXP.PULM.PN ---
Subjective *Date: 06/01/24 *Time: 11:23 Interval history: No acute respiratory vents over the weekend. Patient admits continued improvement in her respiratory symptoms. Pulmonology Exam Inpatient Vital signs and Labs for Last 24 Hours: Temp Pulse Resp BP Pulse Ox O2 Del Method O2 Flow Rate 97.5 F L 89 16 106/55 L 100 Nasal Cannula 1 06/01/24 08:00 06/01/24 08:00 06/01/24 08:00 06/01/24 08:00 06/01/24 08:00 06/01/24 08:00 06/01/24 08:00 Laboratory Results - last 24 hr 06/01/24 06:37: WBC 7.1, RBC 3.70 L, Hgb 10.6 L, Hct 34.3 L, MCV 92.7, MCH 28.6, MCHC 30.9 L, RDW 13.1, Plt Count 458 H, MPV 9.8, Neut % (Auto) 59.5, Lymph % (Auto) 23.7, [place] % (Auto) 8.7, Eos % (Auto) 6.8, Baso % (Auto) 1.0, Neut # (Auto) 4.2, Lymph # (Auto) 1.7, [place] # (Auto) 0.6, Eos # (Auto) 0.5 H, Baso # (Auto) 0.1, Sodium 139, Potassium 3.9, Chloride 102, Carbon Dioxide 35 H, Anion Gap 5.9, BUN 9 D, Creatinine 0.70, Estimated Creat Clear 88, Estimated GFR 85, Est GFR ( Amer) 103, Glucose 95, Calcium 8.4 Temp Pulse Resp BP Pulse Ox O2 Del Method O2 Flow Rate 97.8 F 91 H 16 127/65 99 Nasal Cannula 2.5 05/29/24 08:00 05/29/24 08:00 05/29/24 08:00 05/29/24 08:00 05/29/24 08:00 05/29/24 09:00 05/29/24 09:00 Laboratory Results - last 24 hr 05/28/24 16:48: SARS-CoV-2 (PCR) Not detected, Influenza A Untype (PCR) Not detected, Influenza Type B (PCR) Not detected 05/28/24 17:29: Chlamy pneumoniae PCR Not detected, Adenovirus (PCR) Not detected, B. pertussis DNA (PCR) Not detected, Coronavirus OC43 (PCR) Not detected, Coronavirus HKU1 (PCR) Not detected, Coronavirus 229E (PCR) Not detected, SARS-CoV-2 (PCR) Not detected, Coronavirus NL63 (PCR) Not detected, Human Metapneumovir PCR Not detected, Influenza A (H1) PCR Not detected, Influ A (H1N1/09) PCR Not detected, Influenza A (H3) PCR Not detected, Influenza Type A (PCR) Not detected, Influenza Type B (PCR) Not detected, M. pneumoniae (PCR) Not detected, Parainfluenza 1 (PCR) Not detected, Parainfluenza 2 (PCR) Not detected, Parainfluenza 3 (PCR) Not detected, Parainfluenza 4 (PCR) Not detected, RSV (PCR) Not detected, Entero/Rhino (PCR) Not detected 05/28/24 17:50: WBC 8.7, RBC 3.98 L, Hgb 11.1 L, Hct 35.5 L, MCV 89.2, MCH 27.9, MCHC 31.3 L, RDW 13.2, Plt Count 458 H, MPV 9.9, Neut % (Auto) 75.3, Lymph % (Auto) 13.4, [place] % (Auto) 8.1, Eos % (Auto) 2.1, Baso % (Auto) 0.8, Neut # (Auto) 6.6, Lymph # (Auto) 1.2, [place] # (Auto) 0.7, Eos # (Auto) 0.2, Baso # (Auto) 0.1, Sodium 137, Potassium 4.1, Chloride 99, Carbon Dioxide 29, Anion Gap 13.1, BUN 7, Creatinine 0.60, Estimated Creat Clear 110, Estimated GFR 102, Est GFR ( Amer) 123, Glucose 102 H, Calcium 8.9, Total Bilirubin 0.3, AST 30, ALT 24, Alkaline Phosphatase 93, Troponin I < 0.01, NT-Pro-B Natriuret Pep 122, Total Protein 7.9, Albumin 4.1, Globulin 3.8 H, Albumin/Globulin Ratio 1.1 05/28/24 17:54: VBG pH 7.38, VBG pCO2 49.0, VBG pO2 33.4, VBG HCO3 28.1, VBG Total CO2 29.6 H, VBG O2 Saturation 67.3, VBG Base Excess 3.0 H, VBG Lactic Acid 1.3 05/28/24 21:01: Troponin I < 0.01 05/28/24 23:39: Troponin I < 0.01 05/29/24 06:30: WBC 8.5, RBC 3.85 L, Hgb 10.8 L, Hct 34.7 L, MCV 90.1, MCH 28.1, MCHC 31.1 L, RDW 13.2, Plt Count 461 H, MPV 9.8, Neut % (Auto) 89.6 H, Lymph % (Auto) 6.7 L, [place] % (Auto) 3.2, Eos % (Auto) 0.0 L, Baso % (Auto) 0.1, Neut # (Auto) 7.6, Lymph # (Auto) 0.6 L, [place] # (Auto) 0.3, Eos # (Auto) 0.0, Baso # (Auto) 0.0, Sodium 139, Potassium 4.2, Chloride 103, Carbon Dioxide 28, Anion Gap 12.2, BUN 12 D, Creatinine 0.60, Estimated Creat Clear 103, Estimated GFR 102, Est GFR ( Amer) 123, Glucose 157 H D, Calcium 9.2, Magnesium 2.1 I & O for Labs for Last 24 Hours: Intake & Output 05/29/24 05/30/24 05/31/24 06/01/24 23:59 23:59 23:59 23:59 Intake Total 960 / 1060 1750 / 1750 1590 / 2050 820 / 820 Output Total 1350 / 1350 211 / 211 280 / 280 70 / 70 Balance -390 / -290 1539 / 1539 1310 / 1770 750 / 750 Weight 144 lb 13.499 oz 148 lb 1.6 oz 153 lb 11.2 oz 144 lb Intake & Output 05/26/24 05/27/24 05/28/24 05/29/24 23:59 23:59 23:59 23:59 Intake Total 350 / 350 Output Total 0 / 0 Balance 350 / 350 Weight 145 lb 3.2 oz 144 lb 13.499 oz Microbiology Reports for the Last 24 Hours: Microbiology 05/31/24 17:22 Sputum - Expectorated Sputum Gram Stain - Final 05/31/24 17:22 Sputum - Expectorated Sputum Sputum Culture - Preliminary 05/29/24 12:25 Thoracic Fluid Gram Stain - Final 05/29/24 12:25 Thoracic Fluid Body Fluid Culture - Preliminary NO GROWTH AFTER 48 HOURS Constitutional: Present moderate distress Head: Present normocephalic and atraumatic ENT: Present normal exam, normal oropharynx and mucous membranes moist Neck: Present normal inspection and full ROM Respiratory: Present respiratory distress, diminished air movement and able to speak in complete sentences Comment:: Decreased breath sounds Right lower lung harrison. Left lung harrison clear with no significant wheezing. Cardiac: Present S1/S2, Tachycardia and radial pulses present GI: Present soft and distention; Absent tenderness or guarding Rectal (female): Present deferred (female): Present deferred Skin: Present intact; Absent cyanosis or jaundice Neuro: Present alert, awake and oriented x 3 Extremities: Present normal inspection; Absent clubbing or cyanosis Psychiatric: Present normal affect and cooperative Assessment and Plan *Assessment and plan (1) Mass of right lung: Status: Acute Category: Medical Code(s): R91.8 - Other nonspecific abnormal finding of lung field (2) Hydropneumothorax: Status: Acute Category: Medical Code(s): J94.8 - Other specified pleural conditions (3) Pneumothorax: Status: Acute Category: Medical Code(s): J93.9 - Pneumothorax, unspecified (4) Pleural effusion on right: Status: Acute Category: Medical Code(s): J90 - Pleural effusion, not elsewhere classified (5) Lung collapse: Status: Acute Category: Medical Code(s): J98.19 - Other pulmonary collapse (6) Pneumonia: Status: Acute Category: Medical Code(s): J18.9 - Pneumonia, unspecified organism Plan Ms. Rangel is a 58-year-old female with a reported history of head and neck cancer status post radical neck surgery, current smoker COPD not on any home oxygen supplementation presented to the ER with worsening respiratory chest for the last 3 to 4 days and pulmonary was called for further evaluation and management. Upon further questioning patient admits diagnosis head and neck cancer status post resection in 2022, refused chemoradiation at that point of time last to follow-up recently had a CT scan done 2 months ago diagnosed with new lung mass refused to follow with pulmonology or oncology. Patient had a CT PE performed upon admission did not show any evidence of pulmonary embolism. Large right hilar mediastinal mass with complete occlusion of the right upper lobe bronchus intermedius. Large right pleural effusion and pneumothorax. Adjacent right lower lobe atelectasis/postobstructive pneumonia also noted. Given patient's clinical stability patient was admitted to the hospital for further evaluation and management for possible chest tube placement and bronchoscopy. Afebrile. Hemodynamically stable. No evidence of leukocytosis. COVID-19 and flu PCR negative. Extensive discussion with the patient and the family on the possible etiologies including malignancy. She would likely not be a candidate for surgical resection given her extensive malignant disease and malignancy patient is getting BX for the possible options of chemoradiation. Discussed the risks and benefits of chest tube placement. Patient will to proceed with the procedure. Interval update: Status post 14 [place] chest tube placement. Significant improvement in the noted right-sided pleural effusion. No significant change in the pneumothorax on CXR from yesterday. Continue to receive antibiotics. Improving leukocytosis and oxygen requirements. Pleural fluid studies exudative effusion. Cultures no growth. Cytopathology pending. Plan: Will consider small anterior pigtail catheter placement for the concerning nonresolving apical pneumothorax. Follow with repeat chest x-ray. Will consider CT chest before proceeding with pigtail catheter placement for pneumothorax Chest tube to suction at negative 40 H2O. Chest tube repositioned this morning Follow-up with final pleural fluid results Continue Zosyn pending sputum culture and pleural fluid culture results DuoNebs Q6 hours along with Pulmicort Q12 scheduled
--- NOTE | 2024-06-01 10:54 | XR_ITS ---
FINAL REPORT CLINICAL HISTORY: Pneumothorax COMPARISON: 05/31/2024 FINDINGS: PORTABLE CHEST, 1 VIEW COMPARISON: One day earlier FINDINGS: The lungs harrison are unchanged . There is a persistent right pneumothorax with both basilar and apical components. Pleural separation at the apex on today's examination measures 28 mm, was previously 36. The cardiac silhouette is stable. There is a pigtail catheter in the right lung base that is partially and looped and partially withdrawn. IMPRESSION: Moderate right pneumothorax mildly improved since the prior film of 05/31/2024. Pigtail catheter at the right base is partially and looped and partially withdrawn when compared to the prior exam. Reviewed, Interpreted and Dictated by Venkatesh Díaz MD Transcribed by Lizabeth العراقي Authenticated and [facility]
--- NOTE | 2024-06-01 10:56 | PC.NURSE ---
Dr. Huff pulled back chest tube and re sutured in place. suction turned to 40. pt tolerated well. dressing changed by MD. no needs at this time. call light within reach.
[2024-06-01] MEDS: KETOROLAC 30MG/ML VIAL 15 MG IV (10:57)
--- NOTE | 2024-06-01 17:38 | PC.NURSE ---
pt resting supine in bed with family at bedside. tolerating 1lnc with sats >90%. chest tube remained to the rt lateral chest with canister to 40cm suction. 250 out this shift. tube repositioned and dressing changed by group president. canister changed this shift. pt treated per jun for pain with reduction in pain level. pt uses bedside commode with standby assistance. lungs diminished with wheezing throughout. abx given per jun. vss. no needs at this time. call light within reach.
[2024-06-02] VITALS (14 sets, daily range): BP systolic 104–144; BP diastolic 49–80; PULSE 88–103; RESP 17–20; TEMP 36.4–37; O2SAT 96–100; BMI 24.8
[2024-06-02] MEDS: PIPERACILLIN/TAZO 4.5 GM in 0.9 % SODIUM CHLORIDE 100 ML IV ×3 (02:51→13:27)
--- NOTE | 2024-06-02 04:30 | PC.NURSE ---
Patient is alert and oriented x4. She stated upon assessment that she just does not feel good. Patient was observed to have eyes closed, respirations even and unlabored on 2 L of oxygen via nasal cannula, and no apparent distress for the majority of the night. She has complained of back pain once this shift; Percocet was given per MAR for relief. Chest tube to the right lateral side, on 40 of suction, remains intact; approximately 25 mL of drainage was observed in the chamber thus far this shift (marked on new chamber, documented accordingly). Diminished air movement (especially on right side) and expiratory wheezing was heard during auscultation of her lungs. Auscultation of her heart and bowels were within normal findings. Scheduled medications and breathing treatments were administered per JUN. Trazedone was refused by the patient; she stated that it does not work and did not want to take it. She has been getting up with standby assistance to use the bedside commode for elimination needs. Family members have remained at the bedside for her support. Patient denied any nausea/vomiting this shift. Blood pressures have fluctuated, heart rate slightly elevated (in the 90s). Normal sinus rhythm on telemetry. Oxygen saturations remain > 90%. At this time, she is resting in bed without any further complaints. No new needs at this time. Call light within reach.
[2024-06-02] MEDS: BUDESONIDE 0.5MG/2ML NEB 0.5 MG IH ×2 (06:09→18:15)
[2024-06-02] MEDS: ALBUTEROL 0.083% 2.5 MG/3 ML NEB IH ×5 (06:09→23:08)
[2024-06-02 06:24] LABS: Basophils # 0.1 K/mm3 (0-0.2); Eosinophils # 0.5 K/mm3 (0.0-0.4); Eosinophils % 7.1 % (0.1-12.0); Hematocrit 32.7 % (37.0-47.0); Hemoglobin 10.1 g/dL (12.2-16.2); Lymphocytes # 1.4 K/mm3 (0.7-4.5); Lymphocytes % 20.3 % (10-50); Mean Corpuscular HGB Conc 30.9 g/dL (31.8-35.4); Mean Corpuscular Hemoglobin 27.9 pg (27.0-31.2); Mean Corpuscular Volume 90.3 fl (81-99); Mean Platelet Volume 9.8 fl (7.4-10.4); Monocytes # 0.7 K/mm3 (0.1-1.0); Monocytes % 10.1 % (1.7-9.3); Neutrophils # 4.3 K/mm3 (1.8-7.8); Neutrophils % 61.1 % (37.0-80.0); Platelet Count 457 K/mm3 (142-424); Red Blood Count 3.62 M/mm3 (4.20-5.40); Red Cell Distribution Width 13.2 % (11.5-17.5)
[2024-06-02 06:39] LABS: Chloride 100 mmol/L (98-107)
[2024-06-02 06:40] LABS: Sodium 138 mmol/L (136-145)
[2024-06-02 06:43] LABS: Blood Urea Nitrogen 7 mg/dl (7-17); Calcium 8.6 mg/dl (8.4-10.2); Carbon Dioxide 34 mmol/L (22.0-30.0); Creatinine Clearance Estimated 106 mL/min (50-200); Estimated Glomerular Filt Rate 102 ml/min (>60); GFR (African American) 123 ML/MIN (>60); Glucose 91 mg/dl (74-100)
--- NOTE | 2024-06-02 07:50 | XR_ITS ---
FINAL REPORT CLINICAL HISTORY: chest tube and lung sounds COMPARISON: 06/01/2024 FINDINGS: There is a persistent right apical pneumothorax. Pleural separation measures 29 mm, which is unchanged. There is a stable pleural catheter in the right lung base. Vague opacity in the right lung base is probably a combination of atelectasis and effusion. Left lung is clear. Heart size is normal. IMPRESSION: Stable small right apical pneumothorax. Reviewed, Interpreted and Dictated by Venkatesh Díaz MD Transcribed by Anay Hogan Authenticated and [facility]
[2024-06-02] MEDS: DOCUSATE SODIUM 100 MG CAPSULE PO (08:55)
[2024-06-02] MEDS: ENOXAPARIN 40MG/0.4ML SYRINGE 40 MG SUBCUT (08:55)
[2024-06-02] MEDS: OXYCODONE 5MG W/APAP 325MG TABLET 2 EACH PO ×2 (09:10→23:05)
--- NOTE | 2024-06-02 09:38 | EXP.PULM.PN ---
Subjective *Date: 06/02/24 *Time: 11:50 Interval history: No acute respiratory vents overnight. Patient denies any new respiratory complaints. Pulmonology Exam Inpatient Vital signs and Labs for Last 24 Hours: Temp Pulse Resp BP Pulse Ox O2 Del Method O2 Flow Rate 98.3 F 88 18 125/75 98 Nasal Cannula 2 06/02/24 08:00 06/02/24 08:00 06/02/24 08:00 06/02/24 08:00 06/02/24 08:00 06/02/24 09:00 06/02/24 09:00 Laboratory Results - last 24 hr 06/02/24 05:38: WBC 7.0, RBC 3.62 L, Hgb 10.1 L, Hct 32.7 L, MCV 90.3, MCH 27.9, MCHC 30.9 L, RDW 13.2, Plt Count 457 H, MPV 9.8, Neut % (Auto) 61.1, Lymph % (Auto) 20.3, [place] % (Auto) 10.1 H, Eos % (Auto) 7.1, Baso % (Auto) 1.0, Neut # (Auto) 4.3, Lymph # (Auto) 1.4, [place] # (Auto) 0.7, Eos # (Auto) 0.5 H, Baso # (Auto) 0.1, Sodium 138, Potassium 4.0, Chloride 100, Carbon Dioxide 34 H, Anion Gap 8.0, BUN 7, Creatinine 0.60, Estimated Creat Clear 106, Estimated GFR 102, Est GFR ( Amer) 123, Glucose 91, Calcium 8.6 Temp Pulse Resp BP Pulse Ox O2 Del Method O2 Flow Rate 97.8 F 91 H 16 127/65 99 Nasal Cannula 2.5 05/29/24 08:00 05/29/24 08:00 05/29/24 08:00 05/29/24 08:00 05/29/24 08:00 05/29/24 09:00 05/29/24 09:00 Laboratory Results - last 24 hr 05/28/24 16:48: SARS-CoV-2 (PCR) Not detected, Influenza A Untype (PCR) Not detected, Influenza Type B (PCR) Not detected 05/28/24 17:29: Chlamy pneumoniae PCR Not detected, Adenovirus (PCR) Not detected, B. pertussis DNA (PCR) Not detected, Coronavirus OC43 (PCR) Not detected, Coronavirus HKU1 (PCR) Not detected, Coronavirus 229E (PCR) Not detected, SARS-CoV-2 (PCR) Not detected, Coronavirus NL63 (PCR) Not detected, Human Metapneumovir PCR Not detected, Influenza A (H1) PCR Not detected, Influ A (H1N1/09) PCR Not detected, Influenza A (H3) PCR Not detected, Influenza Type A (PCR) Not detected, Influenza Type B (PCR) Not detected, M. pneumoniae (PCR) Not detected, Parainfluenza 1 (PCR) Not detected, Parainfluenza 2 (PCR) Not detected, Parainfluenza 3 (PCR) Not detected, Parainfluenza 4 (PCR) Not detected, RSV (PCR) Not detected, Entero/Rhino (PCR) Not detected 05/28/24 17:50: WBC 8.7, RBC 3.98 L, Hgb 11.1 L, Hct 35.5 L, MCV 89.2, MCH 27.9, MCHC 31.3 L, RDW 13.2, Plt Count 458 H, MPV 9.9, Neut % (Auto) 75.3, Lymph % (Auto) 13.4, [place] % (Auto) 8.1, Eos % (Auto) 2.1, Baso % (Auto) 0.8, Neut # (Auto) 6.6, Lymph # (Auto) 1.2, [place] # (Auto) 0.7, Eos # (Auto) 0.2, Baso # (Auto) 0.1, Sodium 137, Potassium 4.1, Chloride 99, Carbon Dioxide 29, Anion Gap 13.1, BUN 7, Creatinine 0.60, Estimated Creat Clear 110, Estimated GFR 102, Est GFR ( Amer) 123, Glucose 102 H, Calcium 8.9, Total Bilirubin 0.3, AST 30, ALT 24, Alkaline Phosphatase 93, Troponin I < 0.01, NT-Pro-B Natriuret Pep 122, Total Protein 7.9, Albumin 4.1, Globulin 3.8 H, Albumin/Globulin Ratio 1.1 05/28/24 17:54: VBG pH 7.38, VBG pCO2 49.0, VBG pO2 33.4, VBG HCO3 28.1, VBG Total CO2 29.6 H, VBG O2 Saturation 67.3, VBG Base Excess 3.0 H, VBG Lactic Acid 1.3 05/28/24 21:01: Troponin I < 0.01 05/28/24 23:39: Troponin I < 0.01 05/29/24 06:30: WBC 8.5, RBC 3.85 L, Hgb 10.8 L, Hct 34.7 L, MCV 90.1, MCH 28.1, MCHC 31.1 L, RDW 13.2, Plt Count 461 H, MPV 9.8, Neut % (Auto) 89.6 H, Lymph % (Auto) 6.7 L, [place] % (Auto) 3.2, Eos % (Auto) 0.0 L, Baso % (Auto) 0.1, Neut # (Auto) 7.6, Lymph # (Auto) 0.6 L, [place] # (Auto) 0.3, Eos # (Auto) 0.0, Baso # (Auto) 0.0, Sodium 139, Potassium 4.2, Chloride 103, Carbon Dioxide 28, Anion Gap 12.2, BUN 12 D, Creatinine 0.60, Estimated Creat Clear 103, Estimated GFR 102, Est GFR ( Amer) 123, Glucose 157 H D, Calcium 9.2, Magnesium 2.1 I & O for Labs for Last 24 Hours: Intake & Output 05/30/24 05/31/24 06/01/24 06/02/24 23:59 23:59 23:59 23:59 Intake Total 1750 / 1750 1590 / 2050 2120 / 2220 420 / 420 Output Total 211 / 211 280 / 280 320 / 345 Balance 1539 / 1539 1310 / 1770 1800 / 1875 395 / 395 Weight 148 lb 1.6 oz 153 lb 11.2 oz 144 lb 149 lb 1.6 oz Intake & Output 05/26/24 05/27/24 05/28/24 05/29/24 23:59 23:59 23:59 23:59 Intake Total 350 / 350 Output Total 0 / 0 Balance 350 / 350 Weight 145 lb 3.2 oz 144 lb 13.499 oz Microbiology Reports for the Last 24 Hours: Microbiology 05/28/24 19:29 Blood Blood Culture - Preliminary NO GROWTH AFTER 4 DAYS 05/28/24 19:29 Blood Blood Culture - Preliminary NO GROWTH AFTER 4 DAYS 05/29/24 12:25 Thoracic Fluid Gram Stain - Final 05/29/24 12:25 Thoracic Fluid Body Fluid Culture - Preliminary NO GROWTH AFTER 72 HOURS 05/31/24 17:22 Sputum - Expectorated Sputum Gram Stain - Final 05/31/24 17:22 Sputum - Expectorated Sputum Sputum Culture - Preliminary Constitutional: Present moderate distress Head: Present normocephalic and atraumatic ENT: Present normal exam, normal oropharynx and mucous membranes moist Neck: Present normal inspection and full ROM Respiratory: Present respiratory distress, diminished air movement and able to speak in complete sentences Comment:: Decreased breath sounds Right lower lung harrison. Left lung harrison clear with no significant wheezing. Cardiac: Present S1/S2, Tachycardia and radial pulses present GI: Present soft and distention; Absent tenderness or guarding Rectal (female): Present deferred (female): Present deferred Skin: Present intact; Absent cyanosis or jaundice Neuro: Present alert, awake and oriented x 3 Extremities: Present normal inspection; Absent clubbing or cyanosis Psychiatric: Present normal affect and cooperative Assessment and Plan *Assessment and plan (1) Mass of right lung: Status: Acute Category: Medical Code(s): R91.8 - Other nonspecific abnormal finding of lung field (2) Hydropneumothorax: Status: Acute Category: Medical Code(s): J94.8 - Other specified pleural conditions (3) Pneumothorax: Status: Acute Category: Medical Code(s): J93.9 - Pneumothorax, unspecified (4) Pleural effusion on right: Status: Acute Category: Medical Code(s): J90 - Pleural effusion, not elsewhere classified (5) Lung collapse: Status: Acute Category: Medical Code(s): J98.19 - Other pulmonary collapse (6) Pneumonia: Status: Acute Category: Medical Code(s): J18.9 - Pneumonia, unspecified organism Plan Ms. Rangel is a 58-year-old female with a reported history of head and neck cancer status post radical neck surgery, current smoker COPD not on any home oxygen supplementation presented to the ER with worsening respiratory chest for the last 3 to 4 days and pulmonary was called for further evaluation and management. Upon further questioning patient admits diagnosis head and neck cancer status post resection in 2022, refused chemoradiation at that point of time last to follow-up recently had a CT scan done 2 months ago diagnosed with new lung mass refused to follow with pulmonology or oncology. Patient had a CT PE performed upon admission did not show any evidence of pulmonary embolism. Large right hilar mediastinal mass with complete occlusion of the right upper lobe bronchus intermedius. Large right pleural effusion and pneumothorax. Adjacent right lower lobe atelectasis/postobstructive pneumonia also noted. Given patient's clinical stability patient was admitted to the hospital for further evaluation and management for possible chest tube placement and bronchoscopy. Afebrile. Hemodynamically stable. No evidence of leukocytosis. COVID-19 and flu PCR negative. Extensive discussion with the patient and the family on the possible etiologies including malignancy. She would likely not be a candidate for surgical resection given her extensive malignant disease and malignancy patient is getting BX for the possible options of chemoradiation. Discussed the risks and benefits of chest tube placement. Patient will to proceed with the procedure. Status post 14 [place] chest tube placement. Significant improvement in the noted right-sided pleural effusion. Not much change in the noted pneumothorax. Chest x-ray continue to show stable small right apical pneumothorax. Interval update: No acute respiratory events overnight. Continued to have small apical pneumothorax no acute change from yesterday. Pleural fluid cytology negative for malignancy. Repeat CT chest significant improvement in the noted pleural effusion. Continue to show right anterior pneumothorax. Continue to show large right hilar mass with mediastinal invasion likely malignant in etiology. Plan: Plan for anterior pigtail catheter for the noted nonresolving pneumothorax. Continue chest tube to suction at -40 H2O Wean antibiotics to levofloxacin to complete a total of 7-day course DuoNebs Q6 hours along with Pulmicort Q12 scheduled # Patient will eventually need outpatient bronchoscopy airway examination endobronchial and transbronchial lung biopsy/EBUS FNA to evaluate for the noted etiology
--- NOTE | 2024-06-02 09:42 | CT_ITS ---
FINAL REPORT TECHNIQUE: Axial CT without IV contrast administration. Coronal and sagittal images were obtained and reviewed. This study was performed with techniques to keep radiation doses as low as reasonably achievable, (ALARA). Individualized dose reduction techniques using automated exposure control or adjustment of mA and/or kV according to the patient''s size were employed. CLINICAL HISTORY: Pneumothorax/ Lung Mass COMPARISON: CTA 05/28/2024 FINDINGS: There is a large soft tissue mass in the right hilum with extensive mediastinal invasion, similar to the prior study. This encases the distal trachea, wilson, and right lung central airways with marked narrowing of the airways. This is most pronounced in the right mainstem bronchus. There is near-complete resolution of the right pleural effusion following right pleural catheter placement. Right-sided pleural catheter is subpulmonic in location. There is a small right hydropneumothorax, greatest in the right lung apex. The pneumothorax component is mildly enlarged from the previous study. The left lung is clear. IMPRESSION: Significant improvement in right pleural effusion. Small residual right apical pneumothorax. Extensive right central hilar mass with mediastinal invasion. Reviewed, Interpreted and Dictated by Venkatesh Díaz MD Transcribed by Bambi Lopez Authenticated and . [facility]
--- NOTE | 2024-06-02 10:17 | PC.NURSE ---
pt going down for ct at this time. Dr. Huff at bedside, retaped chest tube dressing. placed to water seal per verbal order per MD.
--- NOTE | 2024-06-02 10:35 | PC.NURSE ---
pt back from radiology at this time. sitting on side of bed. 2LNC in place. chest tube back to suction at -40. call light w/i reach. visitor at bedside.
--- NOTE | 2024-06-02 12:27 | XR_ITS ---
FINAL REPORT CLINICAL HISTORY: post anterior pigtail placement COMPARISON: 5 hours prior FINDINGS: There has been interval placement of a pigtail catheter projecting over the right upper lung. Resolved right-sided pneumothorax. There is persistent density in the right lung base compatible with pleural effusion and/or atelectasis. Right hilar enlargement is again noted. The left lung is clear. Heart size is normal. IMPRESSION: Resolution of right apical pneumothorax following right upper pleural catheter placement. Abnormal densities right lung base and right hilum attributed to patient's tumor and/or pleural effusion. Reviewed, Interpreted and Dictated by Venkatesh Díaz MD Transcribed by Bambi Lopez Authenticated and [facility]
--- NOTE | 2024-06-02 12:38 | PC.NURSE ---
radiology to bedside to obtain chest xray post pigtail placement. Dr. Huff at bedside to read xray. verbal order per Dr. Huff to place anterior pigtail catheter to 20 of suction and to clamp prior chest tube.
--- NOTE | 2024-06-02 12:42 | PC.NURSE ---
pt tolerated procedure well. sitting up in bed facetiming family at this time. denies any needs. call light w/i reach.
--- NOTE | 2024-06-02 12:48 | HMH.PROCNOTE ---
[facility] Procedure Note Date: 06/02/24 Time: 12:48 Procedure Note:: Procedure: Chest tube placement Indication for procedure: Pneumothorax A time out was performed, and the chest x-ray and CT were reviewed reviewed, the appropriate side was confirmed and marked. My hands were washed immediately prior to the procedure. I wore a surgical cap, mask with protective eyewear, sterile gown, and sterile gloves throughout the procedure. The patient was prepped and draped in a sterile manner using chlorhexidine scrub after the appropriate level was percussed and confirmed by ultrasound. 1% lidocaine was used to anesthetize the skin, ?subcutaneous tissue, superior aspect of the rib periosteum and parietal pleura.? A finder needle was then introduced at the fourth intercostal space midline anteriorly?to locate the to locate the air pocket and air was aspirated in to the syringe. A 10-blade scalpel was used to swati the skin at the insertion site. The [id number] needle was then introduced through the skin incision into the pleural space using negative aspiration pressure and the red colorimetric indicator to confirm appropriate positioning of the needle. After the air was aspirated through the catheter, the thoracentesis catheter was then threaded without difficulty.? Patient tolerated the procedure well? Estimated blood loss is 2cc.
[2024-06-02] MEDS: diazePAM 5MG TABLET 5 MG PO (16:07)
--- NOTE | 2024-06-02 16:24 | PC.NURSE ---
Dr. Huff called and stated to place anterior pigtail chest tube to water seal. stated pt would have a chest xray tonight at 1999 and for evening RN to call with report. states that if patient starts having any worsening of symptoms prior to chest xray this evening to obtain a chest xray and call him. Pt placed on waterseal at this time and stated to let staff know if she feels increased shortness of air.
--- NOTE | 2024-06-02 16:48 | PC.NURSE ---
pt sitting up in bed. pt has diminished lung sounds t/o, this am right side was noted to be diminished/absent. pt on 2LNC.Dr. Huff was notified and chest xray and ct was obtained. anterior pigtail chest tube(this is second chest tube) was placed per Dr. Huff and chest xray obtained after. pt currently on waterseal with pigtail chest tube and will get a chest xray at 1999. pt's initial chest tube is in place to right lateral side and has been clamped per verbal order by Dr. Huff. pt's abdomen soft, nontender, bowel sounds active. pt voided per BSC. pt has been medicated per MAR for pain and anxiety with relief noted. pt's significant other at bedside. call light w/i reach.
--- NOTE | 2024-06-02 18:15 | P.PN_ITS ---
Subjective *Date: 06/02/24 *Time: 18:15 Interval history: Shortness of breath improved after anterior pigtail catheter was placed by pulmonology today. Pneumothorax resolved. Continue suction for now, plan to clamp in the morning if stable. Exam Data for Last 24 hours Vital signs and Labs for Last 24 Hours: Temp Pulse Resp BP Pulse Ox O2 Del Method O2 Flow Rate 97.8 F 100 H 18 104/49 L 100 Nasal Cannula 2 06/02/24 15:59 06/02/24 16:00 06/02/24 15:59 06/02/24 15:59 06/02/24 15:59 06/02/24 17:00 06/02/24 17:00 Laboratory Results - last 24 hr 06/02/24 05:38: WBC 7.0, RBC 3.62 L, Hgb 10.1 L, Hct 32.7 L, MCV 90.3, MCH 27.9, MCHC 30.9 L, RDW 13.2, Plt Count 457 H, MPV 9.8, Neut % (Auto) 61.1, Lymph % (Auto) 20.3, [place] % (Auto) 10.1 H, Eos % (Auto) 7.1, Baso % (Auto) 1.0, Neut # (Auto) 4.3, Lymph # (Auto) 1.4, [place] # (Auto) 0.7, Eos # (Auto) 0.5 H, Baso # (Auto) 0.1, Sodium 138, Potassium 4.0, Chloride 100, Carbon Dioxide 34 H, Anion Gap 8.0, BUN 7, Creatinine 0.60, Estimated Creat Clear 106, Estimated GFR 102, Est GFR ( Amer) 123, Glucose 91, Calcium 8.6 I & O for Last 24 hours: Intake & Output 05/30/24 05/31/24 06/01/24 06/02/24 23:59 23:59 23:59 23:59 Intake Total 1750 / 1750 1590 / 2050 2120 / 2220 830 / 830 Output Total 211 / 211 280 / 280 320 / 345 Balance 1539 / 1539 1310 / 1770 1800 / 1875 805 / 805 Weight 67.177 kg 69.717 kg 65.317 kg 67.631 kg Microbiology Reports for the Last 24 Hours: Microbiology 05/29/24 12:25 Thoracic Fluid Gram Stain - Final 05/29/24 12:25 Thoracic Fluid Body Fluid Culture - Preliminary NO GROWTH AFTER 4 DAYS 05/31/24 17:22 Sputum - Expectorated Sputum Gram Stain - Final 05/31/24 17:22 Sputum - Expectorated Sputum Sputum Culture - Final 05/28/24 19:29 Blood Blood Culture - Preliminary NO GROWTH AFTER 4 DAYS 05/28/24 19:29 Blood Blood Culture - Preliminary NO GROWTH AFTER 4 DAYS Constitutional Constitutional: no acute distress *Routine HEENT Exam Head: Present normocephalic Eye: Present EOMI and PERRL ENT: Present mucous membranes moist *Routine Neck Exam Neck: Present supple; Absent lymphadenopathy *Routine Respiratory Exam Respiratory: Present wheezes; Absent CTA bilaterally *Routine Cardiovascular Exam Cardiovascular: Present RRR *Routine Abdominal Exam Abdominal: Present soft and normoactive bowel sounds; Absent tenderness *Routine Extremities Exam Extremities: Absent cyanosis, clubbing or edema *Routine Skin Exam Skin: Present warm; Absent rash *Routine Neurological Exam Neurological: Present alert and oriented X3 Assessment and Plan *Assessment and plan (1) Mass of right lung: Status: Acute Category: Medical Code(s): R91.8 - Other nonspecific abnormal finding of lung field (2) Hydropneumothorax: Status: Acute Category: Medical Code(s): J94.8 - Other specified pleural conditions (3) Tobacco dependence: Status: Acute Category: Medical Code(s): F17.200 - Nicotine dependence, unspecified, uncomplicated (4) COPD (chronic obstructive pulmonary disease): Status: Acute Category: Medical Code(s): J44.9 - Chronic obstructive pulmonary disease, unspecified (5) Severe protein-calorie malnutrition: Status: Acute Category: Medical Code(s): E43 - Unspecified severe protein-calorie malnutrition (6) Lung collapse: Status: Acute Category: Medical Code(s): J98.19 - Other pulmonary collapse (7) Pneumonia: Status: Acute Category: Medical Code(s): J18.9 - Pneumonia, unspecified organism Plan The patient is a 58-year-old female with a history of head and neck cancer (status post radical neck surgery on the left), ongoing tobacco use, COPD (not on home oxygen), and a previously diagnosed right lung mass, presenting with progressive dyspnea over the past three days prior to admission, now occurring at rest. Imaging revealed a hydropneumothorax, pleural effusion, and a large mediastinal and hilar mass encasing the central airways and pulmonary arteries. #Large mediastinal and hilar mass with hydropneumothorax and pleural effusion #Post-obstructive pneumonia #COPD ? Repeat CXR and chest CT revealed persistent right upper pneumothorax though lower pneumothorax and effusion has improved with previous chest tube. This has been clamped today. ? Pulmonology following, s/p anterior pigtail catheter placement with significant improvement in shortness of breath and resolution of pneumothorax on repeat CXR. Suction set at -20. - Continue albuterol every 6 hours scheduled and Pulmicort twice daily - Pulmonology recommended weaning antibiotics to levofloxacin from Zosyn today. WBC stable at 7.0 today. - blood and pleural fluid cultures pending; cytology on pleural fluid shows inflammation and mesothelial cells. No malignant cells were identified. - supplemental O2 as needed, on 1L, goal sats >90% ? Will need referral to oncology, pulmonology on discharge. Anxiety disorder: Continue Valium 5 mg as needed twice daily and trazodone nightly for sleep per home regimen Normocytic anemia: Hemoglobin relatively stable at 10.6. No signs of active bleeding Severe protein calorie malnutrition - nutrition consulted -Regular diet with protein supplement with meals Full code Regular diet with supplementation Continue Lovenox 40 mg daily
[2024-06-02] MEDS: levoFLOXacin 750 MG TABLET PO (18:32)
--- NOTE | 2024-06-02 18:33 | PC.NURSE ---
140 ml in right lateral posterior chest tube drainage and 20 ml in right anterior pigtail chest tube.
--- NOTE | 2024-06-02 20:00 | XR_ITS ---
PROCEDURE INFORMATION: Exam: XR Chest Exam date and time: 06/02/2024 7:45 PM Age: 58 years old Clinical indication: Other: Pneumothorax TECHNIQUE: Imaging protocol: Radiologic exam of the chest. Views: 1 view. COMPARISON: CR XR CHEST PORTABLE 06/02/2024 12:32 PM FINDINGS: Tubes, catheters and devices: Right upper and right lower chest tubes unchanged in position from prior exam.. Lungs: Unremarkable. No consolidation. Pleural spaces: Right apical pneumothorax measures 1.7 cm at the apex similar to the exam performed on 06/02/2024 at 7:56 a.m. Heart/Mediastinum: Unremarkable. No cardiomegaly. Bones/joints: Unremarkable. IMPRESSION: 1. Right upper and right lower chest tubes unchanged in position from prior exam.. 2. Right apical pneumothorax measures 1.7 cm at the apex similar to the exam performed on 06/02/2024 at 7:56 a.m. Right basilar opacities unchanged.
--- NOTE | 2024-06-02 21:15 | PC.NURSE ---
Addendum entered by Josiane Sherman RN 06/02/24 23:41: Late Entry (for 22:36): Dr Huff called me at this time to suggest making sure that the patient is not making any drastic movements that could end up pulling out her chest tubes. He stated to keep a close eye on the patient and her chest tubes, especially the newly placed anterior pigtail, to make sure that any length does not get pulled out, and to make sure her dressings remain intact. Chest tube chambers remain upright and secure to the floor. Patient's labored respirations, audible wheezing, and shortness of breath complaint has also improved after receiving the PRN albuterol treatment (given by Virgen Philippe RT at 21:58 per JUN). She is currently resting in bed without any further distress at this time. Addendum entered by Josiane Sherman RN 06/02/24 21:51: Jose REN was paged at this time to obtain an order for PRN albuterol breathing treatments. Her heart rate is currently maintaining 91 to 94 bpm. Respiratory will be paged once an order is obtained. Addendum entered by Josiane Sherman RN 06/02/24 21:38: I checked on the patient approximately 10 minutes after continuing the suction. Agency Appointments Supervisor was paged again to contact Dr Huff due to patient complaint of difficulty breathing. Dr Huff called back immediately. I notified him about her complaint of worsening shortness of breath. The patient is currently sitting upright in bed, and audible wheezing could be heard. Respirations were labored. Oxygen saturations were measured; the reading was 97%. Dr Huff stated to call respiratory for a breathing treatment. Addendum entered by Josiane Sherman RN 06/02/24 21:21: Dr Huff called back at 21:18. I read to him the results/impression, as requested, of the patient's 20:00 chest x-ray. He stated to continue suction at 20 for the anterior pigtail chest tube that was placed today. Original Note: Agency Appointments Supervisor was paged at this time to contact Dr Huff. Chest x-ray report had resulted.
[2024-06-03] VITALS (14 sets, daily range): BP systolic 97–132; BP diastolic 52–74; PULSE 79–119; RESP 16–22; TEMP 36.4–36.8; O2SAT 94–99; BMI 24.8
[2024-06-03] MEDS: OXYCODONE 5MG W/APAP 325MG TABLET 2 EACH PO ×3 (05:10→21:14)
--- NOTE | 2024-06-03 05:15 | PC.NURSE ---
Patient is alert and oriented x4. Patient had some increased difficulty with breathing during the first half of the shift (see prior note, interventions implemented as accordingly), but has expressed this morning that her breathing has improved and is more in control. She also appears less fatigued. Audible wheezing was not present this morning, but she continues to have a breathy, wheezy cough. She was observed to have eyes closed, respirations even and unlabored on 2 L of oxygen via nasal cannula, and no apparent distress for the majority of the night (primarily after 23:00). Oxygen saturations have remained > 90%. Percocet was administered a couple times this shift for chronic back pain relief. Trazedone refused. Breathing treatments administered per JUN. Normal sinus rhythm on telemetry. Upon auscultation of her lungs, the right anterior lung sounds were very hard to detect; air movement in the right posterior side of her lungs was very diminished. Diminished sounds and inspiratory rhonchi was heard upon auscultation in the left lobes. Minimal drainage was observed in the right anterior pigtail chest tube chamber thus far this shift (remains on suction, see prior note). The right posterior lateral chest tube remains clamped. Both chest tubes and their dressings remain intact. Patient was educated this shift about minimizing drastic movements to avoid pulling out any length from her chest tubes; she verbalized understanding. She continues to get up with standby assistance to use the bedside commode for elimination needs. At this time, the patient is resting upright in bed drinking coffee. remains at bedside. No new needs at this time. Call light within reach.
--- NOTE | 2024-06-03 06:00 | XR_ITS ---
PROCEDURE INFORMATION: Exam: XR Chest Exam date and time: 06/03/2024 5:46 AM Age: 58 years old Clinical indication: Other: Pneumothorax TECHNIQUE: Imaging protocol: Radiologic exam of the chest. Views: 1 view. COMPARISON: CR XR CHEST PORTABLE 06/02/2024 7:45 PM FINDINGS: Tubes, catheters and devices: Stable pigtail thoracostomy drains from prior comparison. Lungs: Stable appearing right lung opacities. Stable right apical pneumothorax with about 2.9 cm of air gap. Pleural spaces: Stable appearing right pleural effusion. Heart/Mediastinum: Unremarkable. No cardiomegaly. Bones/joints: No acute findings of the bones. IMPRESSION: Stable examination from prior comparison with the above details.
[2024-06-03] MEDS: ALBUTEROL 0.083% 2.5 MG/3 ML NEB IH ×3 (06:03→15:39)
[2024-06-03] MEDS: BUDESONIDE 0.5MG/2ML NEB 0.5 MG IH ×2 (06:03→18:19)
[2024-06-03 06:52] LABS: Albumin Level 3.4 g/dl (3.5-5.0); Chloride 100 mmol/L (98-107); Potassium 3.7 mmoL/L (3.5-5.1); Sodium 138 mmol/L (136-145)
[2024-06-03 06:54] LABS: Blood Urea Nitrogen 7 mg/dl (7-17); Creatinine Clearance Estimated 106 mL/min (50-200); Estimated Glomerular Filt Rate 102 ml/min (>60); GFR (African American) 123 ML/MIN (>60)
[2024-06-03 06:55] LABS: Alanine Aminotransferase 20 U/L (12-78); Albumin/Globulin Ratio 1.2 (1.1-1.8); Alkaline Phosphatase 75 U/L (38-126); Anion Gap 8.7 mEq/L (5-15); Aspartate Amino Transferase 27 U/L (14-36); Bilirubin,Total 0.2 mg/dl (0.2-1.3); Calcium 8.6 mg/dl (8.4-10.2); Carbon Dioxide 33 mmol/L (22.0-30.0); Globulin 2.9 g/dL (1.3-3.2); Glucose 118 mg/dl (74-100); Total Protein,Serum 6.3 g/dl (6.3-8.2)
[2024-06-03 07:01] LABS: Basophils # 0.1 K/mm3 (0-0.2); Basophils % 0.7 % (0.1-2.0); Eosinophils # 0.3 K/mm3 (0.0-0.4); Eosinophils % 4.1 % (0.1-12.0); Hematocrit 31.6 % (37.0-47.0); Hemoglobin 9.8 g/dL (12.2-16.2); Lymphocytes # 1.4 K/mm3 (0.7-4.5); Mean Corpuscular Hemoglobin 27.8 pg (27.0-31.2); Mean Corpuscular Volume 89.8 fl (81-99); Mean Platelet Volume 9.9 fl (7.4-10.4); Monocytes # 0.8 K/mm3 (0.1-1.0); Monocytes % 11.7 % (1.7-9.3); Neutrophils # 4.4 K/mm3 (1.8-7.8); Neutrophils % 63.1 % (37.0-80.0); Platelet Count 416 K/mm3 (142-424); Red Blood Count 3.52 M/mm3 (4.20-5.40); Red Cell Distribution Width 13.1 % (11.5-17.5)
--- NOTE | 2024-06-03 09:33 | EXP.PULM.PN ---
Subjective *Date: 06/03/24 *Time: 11:49 Interval history: Patient admits worsening respiratory symptoms briefly overnight that eventually improved after chest tube was placed back on suction and she received a breathing treatment Pulmonology Exam Inpatient Vital signs and Labs for Last 24 Hours: Temp Pulse Resp BP Pulse Ox O2 Del Method O2 Flow Rate 97.9 F 90 18 110/63 97 Nasal Cannula 2 06/03/24 08:00 06/03/24 08:00 06/03/24 08:00 06/03/24 08:00 06/03/24 08:00 06/03/24 08:00 06/03/24 08:00 Laboratory Results - last 24 hr 06/03/24 05:37: WBC 7.0, RBC 3.52 L, Hgb 9.8 L, Hct 31.6 L, MCV 89.8, MCH 27.8, MCHC 31.0 L, RDW 13.1, Plt Count 416, MPV 9.9, Neut % (Auto) 63.1, Lymph % (Auto) 20.0, [place] % (Auto) 11.7 H, Eos % (Auto) 4.1, Baso % (Auto) 0.7, Neut # (Auto) 4.4, Lymph # (Auto) 1.4, [place] # (Auto) 0.8, Eos # (Auto) 0.3, Baso # (Auto) 0.1, Sodium 138, Potassium 3.7, Chloride 100, Carbon Dioxide 33 H, Anion Gap 8.7, BUN 7, Creatinine 0.60, Estimated Creat Clear 106, Estimated GFR 102, Est GFR ( Amer) 123, Glucose 118 H D, Calcium 8.6, Magnesium 2.0, Total Bilirubin 0.2, AST 27, ALT 20, Alkaline Phosphatase 75, Total Protein 6.3, Albumin 3.4 L, Globulin 2.9, Albumin/Globulin Ratio 1.2 Temp Pulse Resp BP Pulse Ox O2 Del Method O2 Flow Rate 97.8 F 91 H 16 127/65 99 Nasal Cannula 2.5 05/29/24 08:00 05/29/24 08:00 05/29/24 08:00 05/29/24 08:00 05/29/24 08:00 05/29/24 09:00 05/29/24 09:00 Laboratory Results - last 24 hr 05/28/24 16:48: SARS-CoV-2 (PCR) Not detected, Influenza A Untype (PCR) Not detected, Influenza Type B (PCR) Not detected 05/28/24 17:29: Chlamy pneumoniae PCR Not detected, Adenovirus (PCR) Not detected, B. pertussis DNA (PCR) Not detected, Coronavirus OC43 (PCR) Not detected, Coronavirus HKU1 (PCR) Not detected, Coronavirus 229E (PCR) Not detected, SARS-CoV-2 (PCR) Not detected, Coronavirus NL63 (PCR) Not detected, Human Metapneumovir PCR Not detected, Influenza A (H1) PCR Not detected, Influ A (H1N1/09) PCR Not detected, Influenza A (H3) PCR Not detected, Influenza Type A (PCR) Not detected, Influenza Type B (PCR) Not detected, M. pneumoniae (PCR) Not detected, Parainfluenza 1 (PCR) Not detected, Parainfluenza 2 (PCR) Not detected, Parainfluenza 3 (PCR) Not detected, Parainfluenza 4 (PCR) Not detected, RSV (PCR) Not detected, Entero/Rhino (PCR) Not detected 05/28/24 17:50: WBC 8.7, RBC 3.98 L, Hgb 11.1 L, Hct 35.5 L, MCV 89.2, MCH 27.9, MCHC 31.3 L, RDW 13.2, Plt Count 458 H, MPV 9.9, Neut % (Auto) 75.3, Lymph % (Auto) 13.4, [place] % (Auto) 8.1, Eos % (Auto) 2.1, Baso % (Auto) 0.8, Neut # (Auto) 6.6, Lymph # (Auto) 1.2, [place] # (Auto) 0.7, Eos # (Auto) 0.2, Baso # (Auto) 0.1, Sodium 137, Potassium 4.1, Chloride 99, Carbon Dioxide 29, Anion Gap 13.1, BUN 7, Creatinine 0.60, Estimated Creat Clear 110, Estimated GFR 102, Est GFR ( Amer) 123, Glucose 102 H, Calcium 8.9, Total Bilirubin 0.3, AST 30, ALT 24, Alkaline Phosphatase 93, Troponin I < 0.01, NT-Pro-B Natriuret Pep 122, Total Protein 7.9, Albumin 4.1, Globulin 3.8 H, Albumin/Globulin Ratio 1.1 05/28/24 17:54: VBG pH 7.38, VBG pCO2 49.0, VBG pO2 33.4, VBG HCO3 28.1, VBG Total CO2 29.6 H, VBG O2 Saturation 67.3, VBG Base Excess 3.0 H, VBG Lactic Acid 1.3 05/28/24 21:01: Troponin I < 0.01 05/28/24 23:39: Troponin I < 0.01 05/29/24 06:30: WBC 8.5, RBC 3.85 L, Hgb 10.8 L, Hct 34.7 L, MCV 90.1, MCH 28.1, MCHC 31.1 L, RDW 13.2, Plt Count 461 H, MPV 9.8, Neut % (Auto) 89.6 H, Lymph % (Auto) 6.7 L, [place] % (Auto) 3.2, Eos % (Auto) 0.0 L, Baso % (Auto) 0.1, Neut # (Auto) 7.6, Lymph # (Auto) 0.6 L, [place] # (Auto) 0.3, Eos # (Auto) 0.0, Baso # (Auto) 0.0, Sodium 139, Potassium 4.2, Chloride 103, Carbon Dioxide 28, Anion Gap 12.2, BUN 12 D, Creatinine 0.60, Estimated Creat Clear 103, Estimated GFR 102, Est GFR ( Amer) 123, Glucose 157 H D, Calcium 9.2, Magnesium 2.1 I & O for Labs for Last 24 Hours: Intake & Output 05/31/24 06/01/24 06/02/24 06/03/24 23:59 23:59 23:59 23:59 Intake Total 1590 / 2050 2120 / 2220 930 / 930 0 / 0 Output Total 280 / 280 320 / 345 185 / 185 Balance 1310 / 1770 1800 / 1875 745 / 745 -10 Weight 153 lb 11.2 oz 144 lb 149 lb 1.6 oz 149 lb 0.696 oz Intake & Output 05/26/24 05/27/24 05/28/24 05/29/24 23:59 23:59 23:59 23:59 Intake Total 350 / 350 Output Total 0 / 0 Balance 350 / 350 Weight 145 lb 3.2 oz 144 lb 13.499 oz Microbiology Reports for the Last 24 Hours: Microbiology 05/28/24 19:29 Blood Blood Culture - Final NO GROWTH AFTER 5 DAYS 05/28/24 19:29 Blood Blood Culture - Final NO GROWTH AFTER 5 DAYS 05/29/24 12:25 Thoracic Fluid Gram Stain - Final 05/29/24 12:25 Thoracic Fluid Body Fluid Culture - Preliminary NO GROWTH AFTER 4 DAYS 05/31/24 17:22 Sputum - Expectorated Sputum Gram Stain - Final 05/31/24 17:22 Sputum - Expectorated Sputum Sputum Culture - Final Constitutional: Present moderate distress Head: Present normocephalic and atraumatic ENT: Present normal exam, normal oropharynx and mucous membranes moist Neck: Present normal inspection and full ROM Respiratory: Present respiratory distress, diminished air movement and able to speak in complete sentences Comment:: Decreased breath sounds Right lower lung harrison. Left lung harrison clear with no significant wheezing. Cardiac: Present S1/S2, Tachycardia and radial pulses present GI: Present soft and distention; Absent tenderness or guarding Rectal (female): Present deferred (female): Present deferred Skin: Present intact; Absent cyanosis or jaundice Neuro: Present alert, awake and oriented x 3 Extremities: Present normal inspection; Absent clubbing or cyanosis Psychiatric: Present normal affect and cooperative Assessment and Plan *Assessment and plan (1) Mass of right lung: Status: Acute Category: Medical Code(s): R91.8 - Other nonspecific abnormal finding of lung field (2) Hydropneumothorax: Status: Acute Category: Medical Code(s): J94.8 - Other specified pleural conditions (3) Pneumothorax: Status: Acute Category: Medical Code(s): J93.9 - Pneumothorax, unspecified (4) Pleural effusion on right: Status: Acute Category: Medical Code(s): J90 - Pleural effusion, not elsewhere classified (5) Lung collapse: Status: Acute Category: Medical Code(s): J98.19 - Other pulmonary collapse (6) Pneumonia: Status: Acute Category: Medical Code(s): J18.9 - Pneumonia, unspecified organism Plan Ms. Rangel is a 58-year-old female with a reported history of head and neck cancer status post radical neck surgery, current smoker COPD not on any home oxygen supplementation presented to the ER with worsening respiratory chest for the last 3 to 4 days and pulmonary was called for further evaluation and management. Upon further questioning patient admits diagnosis head and neck cancer status post resection in 2022, refused chemoradiation at that point of time last to follow-up recently had a CT scan done 2 months ago diagnosed with new lung mass refused to follow with pulmonology or oncology. Patient had a CT PE performed upon admission did not show any evidence of pulmonary embolism. Large right hilar mediastinal mass with complete occlusion of the right upper lobe bronchus intermedius. Large right pleural effusion and pneumothorax. Adjacent right lower lobe atelectasis/postobstructive pneumonia also noted. Given patient's clinical stability patient was admitted to the hospital for further evaluation and management for possible chest tube placement and bronchoscopy. Afebrile. Hemodynamically stable. No evidence of leukocytosis. COVID-19 and flu PCR negative. Extensive discussion with the patient and the family on the possible etiologies including malignancy. She would likely not be a candidate for surgical resection given her extensive malignant disease and malignancy patient is getting BX for the possible options of chemoradiation. Discussed the risks and benefits of chest tube placement. Patient will to proceed with the procedure. Status post 14 Micronesian chest tube placement. Significant improvement in the noted right-sided pleural effusion. Not much change in the noted pneumothorax. Chest x-ray continue to show stable small right apical pneumothorax. Interval update: Status post anterior pigtail catheter for the noted pneumothorax. Continue to have right lower 14 Micronesian chest tube for the previously noted effusion. Pneumothorax resolved status post pigtail catheter placement, chest tube was placed on waterseal with recurrence of pneumothorax. Placed back on suction overnight and repeat chest x-ray from this morning continue to show pneumothorax apical pleural separation at 3 cm Plan: Anterior pigtail catheter to suction at -40 H2O. Follow-up with repeat chest x-ray Posterior Micron[place] catheter to suction at -20 H20 to determine output will plan for removal Levofloxacin to complete a total of 7-day course DuoNebs Q6 hours along with Pulmicort Q12 scheduled # Patient will eventually need outpatient bronchoscopy airway examination endobronchial and transbronchial lung biopsy/EBUS FNA to evaluate for the noted etiology
[2024-06-03] MEDS: DOCUSATE SODIUM 100 MG CAPSULE PO (10:32)
[2024-06-03] MEDS: ENOXAPARIN 40MG/0.4ML SYRINGE 40 MG SUBCUT (10:32)
[2024-06-03] MEDS: diazePAM 5MG TABLET 5 MG PO (10:40)
--- NOTE | 2024-06-03 11:37 | XR_ITS ---
FINAL REPORT CLINICAL HISTORY: Pneumothorax COMPARISON: 06/03/2024 at 5:46 AM FINDINGS: PORTABLE CHEST, 1 VIEW COMPARISON: 06/03/2024, 5:46 AM FINDINGS: The pleural catheter noted on the prior exam is stable. No pneumothorax is currently identified. There is a moderate right pleural effusion, larger than seen on the earlier exam, which now feels the apical pleural space. The cardiac silhouette is stable. Support tubes and lines are stable. IMPRESSION: There is a moderate right pleural effusion which has increased since the earlier exam of 06/03/2024, which now fills the apical pleural space. No pneumothorax is present. Reviewed, Interpreted and Dictated by Venkatesh Díaz MD Transcribed by Lizabeth العراقي Authenticated and [facility]
--- NOTE | 2024-06-03 11:49 | PC.NURSE ---
Pt anterior chest tube suction turned to 40 and posterior chest tube suction turned to 20 per MD Huff. Pt is also on RA now O2 sat 93% and above.
--- NOTE | 2024-06-03 16:43 | XR_ITS ---
PROCEDURE INFORMATION: Exam: XR Chest Exam date and time: 06/03/2024 4:46 PM Age: 58 years old Clinical indication: Shortness of breath TECHNIQUE: Imaging protocol: Radiologic exam of the chest. Views: 1 view. COMPARISON: CR XR CHEST PORTABLE 06/03/2024 11:48 AM FINDINGS: Lungs: See Pleural spaces finding. Pleural spaces: Small to moderate size right-sided pleural effusion in the lung base and over the apex appears stable. Associated right basilar opacity may be atelectasis or consolidation redemonstrated. Volume loss in the right again noted. Stable position of the pleural drainage catheter is on the right. Left lung and costophrenic angle are clear. Heart/Mediastinum: Unremarkable. No cardiomegaly. Bones/joints: Unremarkable. IMPRESSION: Stable chest x-ray with small to moderate right-sided pleural effusion and associated basilar atelectasis or consolidation.
[2024-06-03] MEDS: IPRATROPIUM/ALBUTEROL 3 ML NEB IH ×2 (16:52→22:00)
[2024-06-03] MEDS: METHYLPREDNISOLONE SOD SUCC 40MG VIAL 60 MG IV (16:57)
[2024-06-03 17:14] LABS: Adenovirus,PCR Not Detected (NotDetected); Bordetella Pertussis Not Detected (NotDetected); Chlamydophila Pneumoniae, PCR Not Detected (NotDetected); Coronavirus 19, PCR Not Detected (NotDetected); Coronavirus 229E Not Detected (NotDetected); Coronavirus NL63 Not Detected (NotDetected); Coronavirus OC43 Not Detected (NotDetected); Coronovirus HKU1,PCR Not Detected (NotDetected); Human Metapneumovirus Not Detected (NotDetected); Influenza A, PCR Not Detected (NotDetected); Influenza AH1, 2009 Not Detected (NotDetected); Influenza AH1, PCR Not Detected (NotDetected); Influenza AH3,PCR Not Detected (NotDetected); Influenza B, PCR Not Detected (NotDetected); Mycoplasma Pneumoniae, PCR Not Detected (NotDetected); Parainfluenza 1, PCR Not Detected (NotDetected); Parainfluenza 2, PCR Not Detected (NotDetected); Parainfluenza 3, PCR Not Detected (NotDetected); Parainfluenza 4, PCR Not Detected (NotDetected); Respiratory Syncytial Virus Not Detected (NotDetected); Rhinovirus/Enterovirus Not Detected (NotDetected)
[2024-06-03 17:14] LABS: Lactate Venous 1.1 mmol/L (0.4-2.0); VBG Base Excess 3.1 mmol/L (-2.4-2.3); VBG HCO3 26.9 mmol/L (23-30); VBG PCO2 38.7 mmol/L (35-51); VBG PH 7.46 mmol/L (7.31-7.41); VBG PO2 64.1 mmol/L (28-40); VBG Total CO2 28.1 mmol/L (23-27)
--- NOTE | 2024-06-03 18:05 | PC.NURSE ---
Pt alert and oriented x4. Pt has c/o pain and anxiety this shift and was medicated per MAR. She has received a breathing treament and some IV solu-mederol because pt was c/o chest tightness. MD was made aware and repeat chest x-ray and resp swab were also ordered. Pt is remaining in upper 90's on RA. Both chest tubes are still hooked to suction. Chest tube drainage noted on chart. Pt has had some relief of chest tightness since interventions. Pt is now sitting up in bed with family at bedside.
--- NOTE | 2024-06-03 21:40 | P.PN_ITS ---
Subjective *Date: 06/03/24 *Time: 21:40 Interval history: This afternoon, patient expressed shortness of breath. Stat CXR did not show worsening pneumothorax. She had restricted air movements with diffuse wheezing. Improved with DuoNebs and Solu-Medrol. Exam Data for Last 24 hours Vital signs and Labs for Last 24 Hours: Temp Pulse Resp BP Pulse Ox O2 Del Method O2 Flow Rate 98.3 F 113 H 18 120/70 95 Room Air 1 06/03/24 19:56 06/03/24 19:56 06/03/24 19:56 06/03/24 19:56 06/03/24 19:56 06/03/24 19:56 06/03/24 16:52 Laboratory Results - last 24 hr 06/03/24 05:37: WBC 7.0, RBC 3.52 L, Hgb 9.8 L, Hct 31.6 L, MCV 89.8, MCH 27.8, MCHC 31.0 L, RDW 13.1, Plt Count 416, MPV 9.9, Neut % (Auto) 63.1, Lymph % (Auto) 20.0, [place] % (Auto) 11.7 H, Eos % (Auto) 4.1, Baso % (Auto) 0.7, Neut # (Auto) 4.4, Lymph # (Auto) 1.4, [place] # (Auto) 0.8, Eos # (Auto) 0.3, Baso # (Auto) 0.1, Sodium 138, Potassium 3.7, Chloride 100, Carbon Dioxide 33 H, Anion Gap 8.7, BUN 7, Creatinine 0.60, Estimated Creat Clear 106, Estimated GFR 102, Est GFR ( Amer) 123, Glucose 118 H D, Calcium 8.6, Magnesium 2.0, Total Bilirubin 0.2, AST 27, ALT 20, Alkaline Phosphatase 75, Total Protein 6.3, Albumin 3.4 L, Globulin 2.9, Albumin/Globulin Ratio 1.2 06/03/24 16:46: VBG pH 7.46 H, VBG pCO2 38.7, VBG pO2 64.1 H, VBG HCO3 26.9, VBG Total CO2 28.1 H, VBG O2 Saturation 94.0 H, VBG Base Excess 3.1 H, VBG Lactic Acid 1.1 06/03/24 17:05: Chlamy pneumoniae PCR Not detected, Adenovirus (PCR) Not detected, B. pertussis DNA (PCR) Not detected, Coronavirus OC43 (PCR) Not detected, Coronavirus HKU1 (PCR) Not detected, Coronavirus 229E (PCR) Not detected, SARS-CoV-2 (PCR) Not detected, Coronavirus NL63 (PCR) Not detected, Human Metapneumovir PCR Not detected, Influenza A (H1) PCR Not detected, Influ A (H1N1/09) PCR Not detected, Influenza A (H3) PCR Not detected, Influenza Type A (PCR) Not detected, Influenza Type B (PCR) Not detected, M. pneumoniae (PCR) Not detected, Parainfluenza 1 (PCR) Not detected, Parainfluenza 2 (PCR) Not detected, Parainfluenza 3 (PCR) Not detected, Parainfluenza 4 (PCR) Not detected, RSV (PCR) Not detected, Entero/Rhino (PCR) Not detected I & O for Last 24 hours: Intake & Output 05/31/24 06/01/24 06/02/24 06/03/24 23:59 23:59 23:59 23:59 Intake Total 1590 / 2050 2120 / 2220 930 / 930 1000 / 1000 Output Total 280 / 280 320 / 345 185 / 185 170 / 170 Balance 1310 / 1770 1800 / 1875 745 / 745 830 / 830 Weight 69.717 kg 65.317 kg 67.631 kg 67.605 kg Microbiology Reports for the Last 24 Hours: Microbiology 05/29/24 12:25 Thoracic Fluid Gram Stain - Final 05/29/24 12:25 Thoracic Fluid Body Fluid Culture - Preliminary NO GROWTH AFTER 5 DAYS 05/28/24 19:29 Blood Blood Culture - Final NO GROWTH AFTER 5 DAYS 05/28/24 19:29 Blood Blood Culture - Final NO GROWTH AFTER 5 DAYS Constitutional Constitutional: no acute distress *Routine HEENT Exam Head: Present normocephalic Eye: Present EOMI and PERRL ENT: Present mucous membranes moist *Routine Neck Exam Neck: Present supple; Absent lymphadenopathy *Routine Respiratory Exam Respiratory: Present wheezes; Absent CTA bilaterally *Routine Cardiovascular Exam Cardiovascular: Present RRR *Routine Abdominal Exam Abdominal: Present soft and normoactive bowel sounds; Absent tenderness *Routine Extremities Exam Extremities: Absent cyanosis, clubbing or edema *Routine Skin Exam Skin: Present warm; Absent rash *Routine Neurological Exam Neurological: Present alert and oriented X3 Assessment and Plan *Assessment and plan (1) Mass of right lung: Status: Acute Category: Medical Code(s): R91.8 - Other nonspecific abnormal finding of lung field (2) Hydropneumothorax: Status: Acute Category: Medical Code(s): J94.8 - Other specified pleural conditions (3) Tobacco dependence: Status: Acute Category: Medical Code(s): F17.200 - Nicotine dependence, unspecified, uncomplicated (4) COPD (chronic obstructive pulmonary disease): Status: Acute Category: Medical Code(s): J44.9 - Chronic obstructive pulmonary disease, unspecified (5) Severe protein-calorie malnutrition: Status: Acute Category: Medical Code(s): E43 - Unspecified severe protein-calorie malnutrition (6) Lung collapse: Status: Acute Category: Medical Code(s): J98.19 - Other pulmonary collapse (7) Pneumonia: Status: Acute Category: Medical Code(s): J18.9 - Pneumonia, unspecified organism Plan The patient is a 58-year-old female with a history of head and neck cancer (status post radical neck surgery on the left), ongoing tobacco use, COPD (not on home oxygen), and a previously diagnosed right lung mass, presenting with progressive dyspnea over the past three days prior to admission, now occurring at rest. Imaging revealed a hydropneumothorax, pleural effusion, and a large mediastinal and hilar mass encasing the central airways and pulmonary arteries. #Large mediastinal and hilar mass with hydropneumothorax and pleural effusion #Post-obstructive pneumonia #COPD exacerbation ? Anterior chest tube placed yesterday for apical pneumothorax with initial improvement, however today continues to show moderate pneumothorax. Suction increased to -40 cm. Will follow-up in the morning. Continue suction for posterior chest tube -20 cm per pulmonology. ? This afternoon, patient expressed shortness of breath. Stat CXR did not show worsening pneumothorax. She had restricted air movements with diffuse wheezing. Improved with DuoNebs and Solu-Medrol. ? Continue DuoNebs every 4 hours, IV Solu-Medrol 40 mg daily. ? Continue levofloxacin. - blood and pleural fluid cultures pending; cytology on pleural fluid shows inflammation and mesothelial cells. No malignant cells were identified. - supplemental O2 as needed, on 1L, goal sats >90% ? Will need referral to oncology, pulmonology on discharge. Anxiety disorder: Continue Valium 5 mg as needed twice daily and trazodone nightly for sleep per home regimen Normocytic anemia: Hemoglobin relatively stable at 10.6. No signs of active bleeding Severe protein calorie malnutrition - nutrition consulted -Regular diet with protein supplement with meals Full code Regular diet with supplementation Continue Lovenox 40 mg daily
[2024-06-03] MEDS: LIDOCAINE 5% TRANSDERMAL PATCH 1 EACH TP (22:16)
[2024-06-04] VITALS (9 sets, daily range): BP systolic 103–120; BP diastolic 58–81; PULSE 90–115; RESP 16–17; TEMP 36.6–36.7; O2SAT 90–98; BMI 24.1
[2024-06-04] MEDS: IPRATROPIUM/ALBUTEROL 3 ML NEB IH ×4 (02:36→14:33)
[2024-06-04] MEDS: OXYCODONE 5MG W/APAP 325MG TABLET 2 EACH PO ×2 (04:44→10:40)
--- NOTE | 2024-06-04 06:00 | XR_ITS ---
FINAL REPORT CLINICAL HISTORY: pneumothorax COMPARISON: 06/03/2024 FINDINGS: There is a stable small to moderate right pleural effusion. A right pleural catheter is noted in place without pneumothorax. A right lung mass is present. The left lung is clear. Mediastinum is unremarkable. Heart size is normal. IMPRESSION: No significant change. Reviewed, Interpreted and Dictated by Venkatesh Díaz MD Transcribed by Anay Hogan Authenticated and [facility]
--- NOTE | 2024-06-04 06:05 | PC.NURSE ---
Pt A&OX4 and has tolerated room air. Lung sounds diminished with wheezing noted. Chest tube to right posterior at 20 cm of suction and chest tube to right anterior chest at 40 cm of suction. She has complained of pain in right side and was medicated per JUN. Lidocaine patch in place to right shoulder. Family has remained at bedside. No complaints at this time, call light within reach.
[2024-06-04] MEDS: BUDESONIDE 0.5MG/2ML NEB 0.5 MG IH (06:18)
[2024-06-04 07:06] LABS: Basophils % 0.1 % (0.1-2.0); Hematocrit 34.3 % (37.0-47.0); Hemoglobin 10.7 g/dL (12.2-16.2); Lymphocytes # 0.8 K/mm3 (0.7-4.5); Lymphocytes % 10.8 % (10-50); Mean Corpuscular HGB Conc 31.2 g/dL (31.8-35.4); Mean Corpuscular Hemoglobin 27.5 pg (27.0-31.2); Mean Corpuscular Volume 88.2 fl (81-99); Mean Platelet Volume 9.9 fl (7.4-10.4); Monocytes # 0.4 K/mm3 (0.1-1.0); Monocytes % 5.2 % (1.7-9.3); Neutrophils # 6.1 K/mm3 (1.8-7.8); Neutrophils % 83.4 % (37.0-80.0); Platelet Count 448 K/mm3 (142-424); Red Blood Count 3.89 M/mm3 (4.20-5.40); Red Cell Distribution Width 13.2 % (11.5-17.5); White Blood Count 7.3 K/mm3 (4.8-10.8)
[2024-06-04 07:39] LABS: Alanine Aminotransferase 23 U/L (12-78); Albumin Level 3.8 g/dl (3.5-5.0); Albumin/Globulin Ratio 1.2 (1.1-1.8); Alkaline Phosphatase 77 U/L (38-126); Anion Gap 6.1 mEq/L (5-15); Aspartate Amino Transferase 28 U/L (14-36); Blood Urea Nitrogen 10 mg/dl (7-17); Calcium 9.3 mg/dl (8.4-10.2); Carbon Dioxide 29 mmol/L (22.0-30.0); Chloride 106 mmol/L (98-107); Creatinine Clearance Estimated 124 mL/min (50-200); Estimated Glomerular Filt Rate 126 ml/min (>60); GFR (African American) 152 ML/MIN (>60); Globulin 3.1 g/dL (1.3-3.2); Glucose 146 mg/dl (74-100); Magnesium 2.1 mg/dl (1.6-2.3); Potassium 4.1 mmoL/L (3.5-5.1); Sodium 137 mmol/L (136-145); Total Protein,Serum 6.9 g/dl (6.3-8.2)
[2024-06-04 07:42] LABS: Bilirubin,Total 0.1 mg/dl (0.2-1.3)
[2024-06-04] MEDS: diazePAM 5MG TABLET 5 MG PO (08:01)
[2024-06-04] MEDS: DOCUSATE SODIUM 100 MG CAPSULE PO (08:01)
[2024-06-04] MEDS: METHYLPREDNISOLONE SOD SUCC 40MG VIAL 40 MG IV (08:01)
[2024-06-04] MEDS: ENOXAPARIN 40MG/0.4ML SYRINGE 40 MG SUBCUT (08:01)
--- NOTE | 2024-06-04 09:29 | EXP.PULM.PN ---
Subjective *Date: 06/04/24 *Time: 13:14 Interval history: No acute respiratory vents overnight. Pulmonology Exam Inpatient Vital signs and Labs for Last 24 Hours: Temp Pulse Resp BP Pulse Ox O2 Del Method O2 Flow Rate 97.9 F 105 H 16 111/65 98 Room Air 1 06/04/24 08:00 06/04/24 09:16 06/04/24 08:00 06/04/24 08:00 06/04/24 09:16 06/04/24 09:16 06/03/24 16:52 Laboratory Results - last 24 hr 06/03/24 16:46: VBG pH 7.46 H, VBG pCO2 38.7, VBG pO2 64.1 H, VBG HCO3 26.9, VBG Total CO2 28.1 H, VBG O2 Saturation 94.0 H, VBG Base Excess 3.1 H, VBG Lactic Acid 1.1 06/03/24 17:05: Chlamy pneumoniae PCR Not detected, Adenovirus (PCR) Not detected, B. pertussis DNA (PCR) Not detected, Coronavirus OC43 (PCR) Not detected, Coronavirus HKU1 (PCR) Not detected, Coronavirus 229E (PCR) Not detected, SARS-CoV-2 (PCR) Not detected, Coronavirus NL63 (PCR) Not detected, Human Metapneumovir PCR Not detected, Influenza A (H1) PCR Not detected, Influ A (H1N1/09) PCR Not detected, Influenza A (H3) PCR Not detected, Influenza Type A (PCR) Not detected, Influenza Type B (PCR) Not detected, M. pneumoniae (PCR) Not detected, Parainfluenza 1 (PCR) Not detected, Parainfluenza 2 (PCR) Not detected, Parainfluenza 3 (PCR) Not detected, Parainfluenza 4 (PCR) Not detected, RSV (PCR) Not detected, Entero/Rhino (PCR) Not detected 06/04/24 06:36: WBC 7.3, RBC 3.89 L, Hgb 10.7 L, Hct 34.3 L, MCV 88.2, MCH 27.5, MCHC 31.2 L, RDW 13.2, Plt Count 448 H, MPV 9.9, Neut % (Auto) 83.4 H, Lymph % (Auto) 10.8, [place] % (Auto) 5.2, Eos % (Auto) 0.0 L, Baso % (Auto) 0.1, Neut # (Auto) 6.1, Lymph # (Auto) 0.8, [place] # (Auto) 0.4, Eos # (Auto) 0.0, Baso # (Auto) 0.0, Sodium 137, Potassium 4.1, Chloride 106, Carbon Dioxide 29, Anion Gap 6.1, BUN 10 D, Creatinine 0.50 L, Estimated Creat Clear 124, Estimated GFR 126, Est GFR ( Amer) 152 D, Glucose 146 H, Calcium 9.3, Magnesium 2.1, Total Bilirubin 0.1 L, AST 28, ALT 23, Alkaline Phosphatase 77, Total Protein 6.9, Albumin 3.8 D, Globulin 3.1, Albumin/Globulin Ratio 1.2 Temp Pulse Resp BP Pulse Ox O2 Del Method O2 Flow Rate 97.8 F 91 H 16 127/65 99 Nasal Cannula 2.5 05/29/24 08:00 05/29/24 08:00 05/29/24 08:00 05/29/24 08:00 05/29/24 08:00 05/29/24 09:00 05/29/24 09:00 Laboratory Results - last 24 hr 05/28/24 16:48: SARS-CoV-2 (PCR) Not detected, Influenza A Untype (PCR) Not detected, Influenza Type B (PCR) Not detected 05/28/24 17:29: Chlamy pneumoniae PCR Not detected, Adenovirus (PCR) Not detected, B. pertussis DNA (PCR) Not detected, Coronavirus OC43 (PCR) Not detected, Coronavirus HKU1 (PCR) Not detected, Coronavirus 229E (PCR) Not detected, SARS-CoV-2 (PCR) Not detected, Coronavirus NL63 (PCR) Not detected, Human Metapneumovir PCR Not detected, Influenza A (H1) PCR Not detected, Influ A (H1N1/09) PCR Not detected, Influenza A (H3) PCR Not detected, Influenza Type A (PCR) Not detected, Influenza Type B (PCR) Not detected, M. pneumoniae (PCR) Not detected, Parainfluenza 1 (PCR) Not detected, Parainfluenza 2 (PCR) Not detected, Parainfluenza 3 (PCR) Not detected, Parainfluenza 4 (PCR) Not detected, RSV (PCR) Not detected, Entero/Rhino (PCR) Not detected 05/28/24 17:50: WBC 8.7, RBC 3.98 L, Hgb 11.1 L, Hct 35.5 L, MCV 89.2, MCH 27.9, MCHC 31.3 L, RDW 13.2, Plt Count 458 H, MPV 9.9, Neut % (Auto) 75.3, Lymph % (Auto) 13.4, [place] % (Auto) 8.1, Eos % (Auto) 2.1, Baso % (Auto) 0.8, Neut # (Auto) 6.6, Lymph # (Auto) 1.2, [place] # (Auto) 0.7, Eos # (Auto) 0.2, Baso # (Auto) 0.1, Sodium 137, Potassium 4.1, Chloride 99, Carbon Dioxide 29, Anion Gap 13.1, BUN 7, Creatinine 0.60, Estimated Creat Clear 110, Estimated GFR 102, Est GFR ( Amer) 123, Glucose 102 H, Calcium 8.9, Total Bilirubin 0.3, AST 30, ALT 24, Alkaline Phosphatase 93, Troponin I < 0.01, NT-Pro-B Natriuret Pep 122, Total Protein 7.9, Albumin 4.1, Globulin 3.8 H, Albumin/Globulin Ratio 1.1 05/28/24 17:54: VBG pH 7.38, VBG pCO2 49.0, VBG pO2 33.4, VBG HCO3 28.1, VBG Total CO2 29.6 H, VBG O2 Saturation 67.3, VBG Base Excess 3.0 H, VBG Lactic Acid 1.3 05/28/24 21:01: Troponin I < 0.01 05/28/24 23:39: Troponin I < 0.01 05/29/24 06:30: WBC 8.5, RBC 3.85 L, Hgb 10.8 L, Hct 34.7 L, MCV 90.1, MCH 28.1, MCHC 31.1 L, RDW 13.2, Plt Count 461 H, MPV 9.8, Neut % (Auto) 89.6 H, Lymph % (Auto) 6.7 L, [place] % (Auto) 3.2, Eos % (Auto) 0.0 L, Baso % (Auto) 0.1, Neut # (Auto) 7.6, Lymph # (Auto) 0.6 L, [place] # (Auto) 0.3, Eos # (Auto) 0.0, Baso # (Auto) 0.0, Sodium 139, Potassium 4.2, Chloride 103, Carbon Dioxide 28, Anion Gap 12.2, BUN 12 D, Creatinine 0.60, Estimated Creat Clear 103, Estimated GFR 102, Est GFR ( Amer) 123, Glucose 157 H D, Calcium 9.2, Magnesium 2.1 I & O for Labs for Last 24 Hours: Intake & Output 06/01/24 06/02/24 06/03/24 06/04/24 23:59 23:59 23:59 23:59 Intake Total 2120 / 2220 930 / 930 1250 / 1450 200 / 200 Output Total 320 / 345 185 / 185 170 / 170 20 / 20 Balance 1800 / 1875 745 / 745 1080 / 1280 180 / 180 Weight 144 lb 149 lb 1.6 oz 149 lb 0.696 oz 145 lb Intake & Output 05/26/24 05/27/24 05/28/24 05/29/24 23:59 23:59 23:59 23:59 Intake Total 350 / 350 Output Total 0 / 0 Balance 350 / 350 Weight 145 lb 3.2 oz 144 lb 13.499 oz Microbiology Reports for the Last 24 Hours: Microbiology 05/29/24 12:25 Thoracic Fluid Gram Stain - Final 05/29/24 12:25 Thoracic Fluid Body Fluid Culture - Preliminary NO GROWTH AFTER 5 DAYS Constitutional: Present moderate distress Head: Present normocephalic and atraumatic ENT: Present normal exam, normal oropharynx and mucous membranes moist Neck: Present normal inspection and full ROM Respiratory: Present respiratory distress, diminished air movement and able to speak in complete sentences Comment:: Decreased breath sounds Right lower lung harrison. Left lung harrison clear with no significant wheezing. Cardiac: Present S1/S2, Tachycardia and radial pulses present GI: Present soft and distention; Absent tenderness or guarding Rectal (female): Present deferred (female): Present deferred Skin: Present intact; Absent cyanosis or jaundice Neuro: Present alert, awake and oriented x 3 Extremities: Present normal inspection; Absent clubbing or cyanosis Psychiatric: Present normal affect and cooperative Assessment and Plan *Assessment and plan (1) Mass of right lung: Status: Acute Category: Medical Code(s): R91.8 - Other nonspecific abnormal finding of lung field (2) Hydropneumothorax: Status: Acute Category: Medical Code(s): J94.8 - Other specified pleural conditions (3) Pneumothorax: Status: Acute Category: Medical Code(s): J93.9 - Pneumothorax, unspecified (4) Pleural effusion on right: Status: Acute Category: Medical Code(s): J90 - Pleural effusion, not elsewhere classified (5) Lung collapse: Status: Acute Category: Medical Code(s): J98.19 - Other pulmonary collapse (6) Pneumonia: Status: Acute Category: Medical Code(s): J18.9 - Pneumonia, unspecified organism Plan Ms. Rangel is a 58-year-old female with a reported history of head and neck cancer status post radical neck surgery, current smoker COPD not on any home oxygen supplementation presented to the ER with worsening respiratory chest for the last 3 to 4 days and pulmonary was called for further evaluation and management. Upon further questioning patient admits diagnosis head and neck cancer status post resection in 2022, refused chemoradiation at that point of time last to follow-up recently had a CT scan done 2 months ago diagnosed with new lung mass refused to follow with pulmonology or oncology. Patient had a CT PE performed upon admission did not show any evidence of pulmonary embolism. Large right hilar mediastinal mass with complete occlusion of the right upper lobe bronchus intermedius. Large right pleural effusion and pneumothorax. Adjacent right lower lobe atelectasis/postobstructive pneumonia also noted. Given patient's clinical stability patient was admitted to the hospital for further evaluation and management for possible chest tube placement and bronchoscopy. Afebrile. Hemodynamically stable. No evidence of leukocytosis. COVID-19 and flu PCR negative. Extensive discussion with the patient and the family on the possible etiologies including malignancy. She would likely not be a candidate for surgical resection given her extensive malignant disease and malignancy patient is getting BX for the possible options of chemoradiation. Discussed the risks and benefits of chest tube placement. Patient will to proceed with the procedure. Status post 14 [place] chest tube placement. Significant improvement in the noted right-sided pleural effusion. Not much change in the noted pneumothorax. Chest x-ray continue to show stable small right apical pneumothorax. Interval update: Repeat chest x-ray did not show any obvious evidence of pneumothorax however still concern for separation. 14 [place] catheter to suction with no significant output. Plan: Anterior pigtail catheter to Heimlich valve Remove 14 [place] chest tube Continue levofloxacin to complete a total of 7-day course Continue DuoNebs Q6 hours along with Pulmicort Q12 scheduled. Patient having intermittent episodes of respiratory distress also concerning for anxiety per oxygen comments has been relatively stable saturating 98% and above. Discontinue steroids # Patient will eventually need outpatient bronchoscopy airway examination endobronchial and transbronchial lung biopsy/EBUS FNA to evaluate for the noted etiology # Will follow the patient in pulmonary clinic on 06/08/2024 with repeat chest x-ray PA lateral
--- NOTE | 2024-06-04 11:00 | PC.NURSE ---
Posterior chest tube removed by Dr Huff. Anterior chest tube still in place but no longer connected to pleur-evac, heimlich valve connected to tube and dressings in place.
[2024-06-04] MEDS: ALBUTEROL 0.083% 2.5 MG/3 ML NEB IH (12:26)
--- NOTE | 2024-06-04 14:53 | EXP.DC.SUM ---
General Admission date:: 05/28/24 HPI HPI HPI: The patient is a 58-year-old female with a history of head and neck cancer status post radical neck surgery on the left, ongoing tobacco use, and COPD not requiring home oxygen. She presents to the emergency department with worsening dyspnea over the past three days, reporting that she has become significantly more short of breath, now experiencing shortness of breath even at rest. She describes difficulty breathing and difficulty taking a deep breath but denies associated chest pain, fever, chills, hemoptysis, hematochezia, melena, nausea, vomiting, or diarrhea. She was evaluated at [facility] in March, where she was diagnosed with a right lung mass and was offered admission, which she declined. She attributed her symptoms to an upper respiratory tract infection and initially improved without treatment, but she has not followed up since. Her recent laboratory results show no evidence of viral or bacterial respiratory infections, with a normal white blood cell count of 8.7 and no neutrophilic shift. A venous blood gas reveals a pH of 7.38 with a lactic acid of 1.3. Troponin is negative. Upon arrival, she was tachycardic at 113 beats per minute but otherwise hemodynamically stable with an oxygen saturation of 100% on room air. Physical examination reveals increased work of breathing but no use of accessory muscles, with significantly diminished breath sounds in the right lung field. A CT scan with PE protocol shows no pulmonary embolism but reveals a hydropneumothorax, pleural effusion, and a very large mediastinal and hilar mass encasing the central airways and pulmonary arteries. The on-call pulmonology team was consulted, and the patient is currently stable on room air with plans for admission, chest tube placement tomorrow, and probable bronchoscopy with biopsy. Broad-spectrum antibiotics IV Zosyn been initiated for possible obstructive pneumonia. If the patient decompensates, an emergent chest tube will be placed. Hospital Course Hospital Course Hospital Course: Doris Rangel is a 58-year-old female with a history of head and neck cancer (status post radical neck surgery on the left), ongoing tobacco use, COPD (not on home oxygen), and a recently diagnosed right lung mass, presented with progressive dyspnea over the past three days prior to admission, now occurring at rest. Initial imaging revealed a hydropneumothorax, pleural effusion, and a large mediastinal and hilar mass encasing the central airways and pulmonary arteries. #Large mediastinal and hilar mass with hydropneumothorax and pleural effusion #Post-obstructive pneumonia #COPD exacerbation ? Recently found right lung mass a few months ago, however fortunately patient has not sought further evaluation and management. ? CTA chest revealed above findings. No tension physiology. ? Posterior Divehi chest tube was placed with serosanguineous output from pleural effusion sent for pleural studies, cytology. Also improved inferior pneumothorax. ? Given residual superior pneumothorax, anterior apical chest tube was placed by pulmonology with only mild improvement. There still remains a small to moderate right mostly apical pneumothorax. Aside from COPD exacerbation, patient was weaned to room air with no significant dyspneic or respiratory events. ? Pulmonology recommended removing posterior chest tube, and closing anterior chest tube with Heimlich valve. ? COPD exacerbation and postobstructive pneumonia also improved with DuoNebs, Pulmicort, steroids, levofloxacin. ? Discharged with DuoNebs every 6 hours, Pulmicort every 12 hours, prednisone 40 mg, and levofloxacin 750 mg. ? Will have very close follow-up with pulmonology within 3 days to discuss further evaluation with EBUS biopsy. #Anxiety isorder ? Continue Valium 5 mg as needed twice daily and trazodone nightly for sleep per home regimen #Normocytic anemia ? Hemoglobin relatively stable at 10.7. No signs of active bleeding #Severe protein calorie malnutrition - Nutrition consulted - Regular diet with protein supplement with meals Exam Data for Last 24 hours Vital signs and Labs for Last 24 Hours: Temp Pulse Resp BP Pulse Ox O2 Del Method O2 Flow Rate 98 F 109 H 16 110/65 96 Room Air 1 06/04/24 12:00 06/04/24 14:34 06/04/24 12:00 06/04/24 12:00 06/04/24 14:34 06/04/24 14:34 06/03/24 16:52 Laboratory Results - last 24 hr 06/03/24 16:46: VBG pH 7.46 H, VBG pCO2 38.7, VBG pO2 64.1 H, VBG HCO3 26.9, VBG Total CO2 28.1 H, VBG O2 Saturation 94.0 H, VBG Base Excess 3.1 H, VBG Lactic Acid 1.1 06/03/24 17:05: Chlamy pneumoniae PCR Not detected, Adenovirus (PCR) Not detected, B. pertussis DNA (PCR) Not detected, Coronavirus OC43 (PCR) Not detected, Coronavirus HKU1 (PCR) Not detected, Coronavirus 229E (PCR) Not detected, SARS-CoV-2 (PCR) Not detected, Coronavirus NL63 (PCR) Not detected, Human Metapneumovir PCR Not detected, Influenza A (H1) PCR Not detected, Influ A (H1N1/09) PCR Not detected, Influenza A (H3) PCR Not detected, Influenza Type A (PCR) Not detected, Influenza Type B (PCR) Not detected, M. pneumoniae (PCR) Not detected, Parainfluenza 1 (PCR) Not detected, Parainfluenza 2 (PCR) Not detected, Parainfluenza 3 (PCR) Not detected, Parainfluenza 4 (PCR) Not detected, RSV (PCR) Not detected, Entero/Rhino (PCR) Not detected 06/04/24 06:36: WBC 7.3, RBC 3.89 L, Hgb 10.7 L, Hct 34.3 L, MCV 88.2, MCH 27.5, MCHC 31.2 L, RDW 13.2, Plt Count 448 H, MPV 9.9, Neut % (Auto) 83.4 H, Lymph % (Auto) 10.8, Casey % (Auto) 5.2, Eos % (Auto) 0.0 L, Baso % (Auto) 0.1, Neut # (Auto) 6.1, Lymph # (Auto) 0.8, Casey # (Auto) 0.4, Eos # (Auto) 0.0, Baso # (Auto) 0.0, Sodium 137, Potassium 4.1, Chloride 106, Carbon Dioxide 29, Anion Gap 6.1, BUN 10 D, Creatinine 0.50 L, Estimated Creat Clear 124, Estimated GFR 126, Est GFR ( Amer) 152 D, Glucose 146 H, Calcium 9.3, Magnesium 2.1, Total Bilirubin 0.1 L, AST 28, ALT 23, Alkaline Phosphatase 77, Total Protein 6.9, Albumin 3.8 D, Globulin 3.1, Albumin/Globulin Ratio 1.2 I & O for Last 24 hours: Intake & Output 06/01/24 06/02/24 06/03/24 06/04/24 23:59 23:59 23:59 23:59 Intake Total 2120 / 2220 930 / 930 1250 / 1450 200 / 200 Output Total 320 / 345 185 / 185 170 / 170 200 / 200 Balance 1800 / 1875 745 / 745 1080 / 1280 0 / 0 Weight 65.317 kg 67.631 kg 67.605 kg 65.771 kg Microbiology Reports for the Last 24 Hours: Microbiology 05/29/24 12:25 Thoracic Fluid Gram Stain - Final 05/29/24 12:25 Thoracic Fluid Body Fluid Culture - Final NO GROWTH AFTER 5 DAYS Constitutional Constitutional: no acute distress *Routine HEENT Exam Head: Present normocephalic Eye: Present EOMI and PERRL ENT: Present mucous membranes moist *Routine Neck Exam Neck: Present supple; Absent lymphadenopathy *Routine Respiratory Exam Respiratory: Present CTA bilaterally and wheezes *Routine Cardiovascular Exam Cardiovascular: Present RRR *Routine Abdominal Exam Abdominal: Present soft and normoactive bowel sounds; Absent tenderness *Routine Extremities Exam Extremities: Absent cyanosis, clubbing or edema *Routine Skin Exam Skin: Present warm; Absent rash *Routine Neurological Exam Neurological: Present alert and oriented X3 Results Data Completed and Pending Labs on day of discharge: Labs from last 24 hours 06/04/24 06/03/24 06/03/24 06:36 17:05 16:46 WBC 7.3 RBC 3.89 L Hgb 10.7 L Hct 34.3 L MCV 88.2 MCH 27.5 MCHC 31.2 L RDW 13.2 Plt Count 448 H MPV 9.9 Neut % (Auto) 83.4 H Lymph % (Auto) 10.8 Casey % (Auto) 5.2 Eos % (Auto) 0.0 L Baso % (Auto) 0.1 Neut # (Auto) 6.1 Lymph # (Auto) 0.8 Casey # (Auto) 0.4 Eos # (Auto) 0.0 Baso # (Auto) 0.0 VBG pH 7.46 H VBG pCO2 38.7 VBG pO2 64.1 H VBG HCO3 26.9 VBG Total CO2 28.1 H VBG O2 Saturation 94.0 H VBG Base Excess 3.1 H VBG Lactic Acid 1.1 Sodium 137 Potassium 4.1 Chloride 106 Carbon Dioxide 29 Anion Gap 6.1 BUN 10 D Creatinine 0.50 L Estimated Creat Clear 124 Estimated GFR 126 Est GFR ( Amer) 152 D Glucose 146 H Calcium 9.3 Magnesium 2.1 Total Bilirubin 0.1 L AST 28 ALT 23 Alkaline Phosphatase 77 Total Protein 6.9 Albumin 3.8 D Globulin 3.1 Albumin/Globulin Ratio 1.2 Chlamy pneumoniae PCR Not detected Adenovirus (PCR) Not detected B. pertussis DNA (PCR) Not detected Coronavirus OC43 (PCR) Not detected Coronavirus HKU1 (PCR) Not detected Coronavirus 229E (PCR) Not detected SARS-CoV-2 (PCR) Not detected Coronavirus NL63 (PCR) Not detected Human Metapneumovir PCR Not detected Influenza A (H1) PCR Not detected Influ A (H1N1/09) PCR Not detected Influenza A (H3) PCR Not detected Influenza Type A (PCR) Not detected Influenza Type B (PCR) Not detected M. pneumoniae (PCR) Not detected Parainfluenza 1 (PCR) Not detected Parainfluenza 2 (PCR) Not detected Parainfluenza 3 (PCR) Not detected Parainfluenza 4 (PCR) Not detected RSV (PCR) Not detected Entero/Rhino (PCR) Not detected DS: Diagnosis Discharge Diagnosis (1) Mass of right lung: Status: Acute Code(s): R91.8 - Other nonspecific abnormal finding of lung field (2) Hydropneumothorax: Status: Acute Code(s): J94.8 - Other specified pleural conditions (3) Pneumothorax: Status: Acute Code(s): J93.9 - Pneumothorax, unspecified (4) Pleural effusion on right: Status: Acute Code(s): J90 - Pleural effusion, not elsewhere classified (5) Lung collapse: Status: Acute Code(s): J98.19 - Other pulmonary collapse (6) Pneumonia: Status: Acute Code(s): J18.9 - Pneumonia, unspecified organism Meds Home Medications and Allergies Home Medications ?Medication ?Instructions ?Recorded ?Confirmed ?Type diazepam 5 mg tablet 5 - 10 mg PO BIDP PRN Anxiety 05/29/24 06/10/24 History budesonide 0.5 mg/2 mL suspension 0.5 mg (2 mL) inhalation BIDRT 30 06/04/24 06/10/24 Rx for nebulization (Pulmicort) days #120 mL hydrocodone 5 mg-acetaminophen 325 1 tab PO Q6H PRN pain 3 days #18 06/04/24 06/10/24 Rx mg tablet tabs ipratropium 0.5 mg-albuterol 3 mg 3 ml inhalation Q6H 30 days #180 mL 06/04/24 06/10/24 Rx (2.5 mg base)/3 mL nebulization soln atorvastatin 20 mg tablet 20 mg PO PRN 06/08/24 06/10/24 History New Prescriptions to Start Prescriptions: karenesonide [Pulmicort] Dean Selby hydrocodone-acetaminophen Dean Selby ipratropium-albuterol Dean Selby Allergies Allergy/AdvReac Type Severity Reaction Status Date / Time codeine Allergy Unknown Verified 06/10/24 10:38 allergy reaction Penicillins Allergy Hives Verified 06/10/24 10:38 levofloxacin (From Levaquin) AdvReac Mild Verified 06/10/24 10:38 Discharge Plan Disposition Patient Disposition: Home, Self-Care Condition: Fair Discharge Order Discharge Orders: Discharge Order (Routine); Ordered 06/04/24 Ordered By: Dean Selby Follow up Plan Follow up with: Shakira Huff MD [Physician] - 06/23/24 1:00 pm Prescriptions/Medication Reconciliation: New ipratropium-albuterol 0.5 mg-3 mg(2.5 mg base)/3 mL Solution For Nebulization 3 ml inhalation Q6H 30 Days Qty: 180 0RF budesonide [Pulmicort] 0.5 mg/2 mL Suspension For Nebulization 0.5 mg inhalation BIDRT 30 Days Qty: 120 0RF hydrocodone-acetaminophen 5-325 mg tablet 1 tab PO Q6H PRN (Reason: pain) 3 Days Qty: 18 0RF Continued diazepam 5 mg tablet 5 - 10 mg PO BIDP PRN (Reason: Anxiety) Patient Comments: TAKE 1 TO 2 TABLETS BY MOUTH TWICE DAILY NEEDED No Action atorvastatin 20 mg tablet 20 mg PO PRN Patient Comments: TAKE 1 TABLET BY MOUTH EVERY DAY Problem Reconciliation Problems Reviewed?: Yes Patient Discharge Instructions Patient Instructions: DI for Pneumonia -- Adult, DI for Pneumothorax, DI for Thoracentesis, DI for Surgical Site Infection, DI for Pleural Effusion Print Language: Bulgarian Providers Primary Care Provider: Wu Garrido Admit Provider: Gian Hung Attending Provider: Gian Hung
--- NOTE | 2024-06-08 12:40 | SW/DCPLANNER ---
Phoned patient x2. Left message each time with call back number. Miguel Rosas
== END 2024-06-04 16:28 | disposition home or self-care (01) | DRG 199 ==
LOC: ER 19:30 → 2ND 20:22
PROVIDERS: Internal Medicine Pulmonary Disease; Nurse Practitioner Family; Physician Assistant; Student in an Organized Health Care Education/Training Program; Admitting Provider Internal Medicine Adolescent Medicine; Emergency Provider Emergency Medicine; PCP Pediatrics; Visit Provider Internal Medicine Adolescent Medicine
DX: J93.9 Pneumothorax, unspecified (principal); E43 Unspecified severe protein-calorie malnutrition; J18.9 Pneumonia, unspecified organism; J94.2 Hemothorax; J90 Pleural effusion, not elsewhere classified; J98.19 Other pulmonary collapse; J44.1 Chronic obstructive pulmonary disease with (acute) exacerbation; F17.210 Nicotine dependence, cigarettes, uncomplicated; D64.9 Anemia, unspecified; R91.8 Other nonspecific abnormal finding of lung field; Z88.0 Allergy status to penicillin; Z88.5 Allergy status to narcotic agent; Z85.818 Personal history of malignant neoplasm of other sites of lip, oral cavity, and pharynx; Z88.1 Allergy status to other antibiotic agents; Z79.899 Other long term (current) drug therapy; Z68.24 Body mass index [BMI] 24.0-24.9, adult
CPT/HCPCS: 32555; 36415; 71045; 71250; 71275; 80048; 80053; 82042; 82803; 82945; 83615; 83735; 83880; 84155; 84484; 85025; 87040; 87070; 87205; 87633; 87636; 88112; 88305; 89051; 94640; 94761; 99221; 99291; J1171; J1650; J1885; J2405; J2543; J2919; J3360; J3372; J7613; J7620; Q9967

== ENCOUNTER 2024-06-08 15:29 | Outpatient (CLI) | payer OTHER, SELFPAY ==
--- NOTE | 2024-06-08 15:33 | XR_ITS ---
FINAL REPORT CLINICAL HISTORY: chest tube COMPARISON: 06/04/2024 FINDINGS: PA lateral views of the chest were obtained. There is a small right apical pneumothorax. A right anterior pigtail pleural catheter is noted. The lower right pleural catheter has been removed since the prior exam. The right pleural effusion and right perihilar mass are stable. The left lung is clear. The mediastinum has a normal appearance. The cardiac silhouette is unremarkable. IMPRESSION: Stable small right apical pneumothorax with pigtail pleural catheter. Reviewed, Interpreted and Dictated by Venkatesh Díaz MD Transcribed by Anay Hogan Authenticated and [facility]
== END 2024-06-08 23:59 | disposition home or self-care (01) ==
LOC: RAD 15:30
PROVIDERS: PCP Pediatrics; Visit Provider Internal Medicine Pulmonary Disease
DX: R06.02 Shortness of breath (principal)
CPT/HCPCS: 71046

== ENCOUNTER 2024-06-10 08:34 | Outpatient (CLI) | payer OTHER, SELFPAY ==
--- NOTE | 2024-06-10 08:47 | CT_ITS ---
FINAL REPORT TECHNIQUE: Axial imaging of the chest was obtained without contrast. Reformatted images were also obtained and reviewed.This study was performed with techniques to keep radiation doses as low as reasonably achievable, (ALARA). Individualized dose reduction technique using automated exposure control or adjustment of mA and/or kV according to the patient's size were employed. CLINICAL HISTORY: CT-guided chest tube placement for Pneumothorax COMPARISON: 06/02/2024 FINDINGS: There is no axillary adenopathy. There is no hilar or mediastinal mass or adenopathy. Heart size is normal. There is a small right anterior apical pneumothorax which has improved. Anterior loculation of the pneumothorax measures 22 mm, previously measured 52 mm. A pigtail drainage catheter is in good position. There is a small component of the posterior pneumothorax that is increased in size but was previously filled with fluid. There is small, complex pleural effusion in the lower right thorax which has mildly improved. There is been interval removal of right sided subpneumonic pleural catheter. There is a right hilar mass with mild mediastinal and hilar invasion again seen. Left lung is clear. IMPRESSION: Improved small right loculated anterior apical pneumothorax with small caliber pleural catheter in good position. Small multiloculated hydropneumothorax within other parts of the right lung, overall mildly improved. Large right hilar mass with hilar and mediastinal invasion again noted. Reviewed, Interpreted and Dictated by Venkatesh Díaz MD Transcribed by Kendal Olson Authenticated and [facility]
[2024-06-10 15:57] LABS: ABG PCO2 84.1 mmhg (35.0-45.0)
[2024-06-10 15:58] LABS: ABG Base Excess -5.7 mmol/L (-2.4-2.3); ABG HCO3 25.5 mmhg (22.0-26.0); ABG Oxygen Saturation 100 % (90-100); ABG PO2 382.7 mmhg (80-100); ABG TCO2 28.1 mmhg (23-27); Oxygen 100% AMBU %
[2024-06-10 15:59] LABS: Allen's Test Non Applicable; Lactate Arterial 2.3 mmol/L (0.4-2.0); Source Right Radial
== END 2024-06-10 23:59 | disposition home or self-care (01) ==
PROVIDERS: Emergency Medicine; PCP Pediatrics; Visit Provider Internal Medicine Pulmonary Disease
DX: J93.9 Pneumothorax, unspecified (principal)
CPT/HCPCS: 71250; 82803; 83605

== ENCOUNTER 2024-06-10 15:44 | Emergency (ER) | payer OTHER, SELFPAY ==
[2024-06-10] VITALS (41 sets, daily range): BP systolic 62–178; BP diastolic 40–116; PULSE 116–150; RESP 0–36; TEMP 35.2–36.4; O2SAT 76–100; BMI 20.7
--- NOTE | 2024-06-10 15:51 | ECG_ITS ---
APPROVED REPORT Exam: Resting ECG HR:140 bpm ECG Measurements Heart Rate 140 AXES IN 143 P 73 QRSd 96 QRS 80 QT 331 T 77 QTc 412 Conclusion SINUS TACHYCARDIA, POSSIBLE ATRIAL FLUTTER NONSPECIFIC T-WAVE ABNORMALITY ABNORMAL RHYTHM ECG UNCONFIRMED REPORT Electronically signed by : APARNA VICENTE, 06/11/2024 06:50:45
[2024-06-10] MEDS: LACTATED RINGERS 1000ML 1,000 ML 999 ML IV (15:56)
[2024-06-10] MEDS: ETOMIDATE 40MG/20ML VIAL 30 MG IV (15:56)
[2024-06-10] MEDS: SUCCINYLCHOLINE 20MG/ML 10 ML MDV 100 MG IV (15:56)
--- NOTE | 2024-06-10 16:06 | XR_ITS ---
FINAL REPORT TECHNIQUE: Stamped time 3:51 PM. CLINICAL HISTORY: Respiratory Failure COMPARISON: 06/08/2024 FINDINGS: SINGLE VIEW CHEST The heart is normal in size. The mediastinum is unremarkable. There is right lung mass with right pleural thickening and pleural effusion. Right upper pigtail pleural catheter is identified without significant pneumothorax. The left lung is clear. IMPRESSION: No significant pneumothorax or significant change. Reviewed, Interpreted and Dictated by Venkatesh Díaz MD Transcribed by Tita Santos Authenticated and [facility]
--- NOTE | 2024-06-10 16:07 | XR_ITS ---
FINAL REPORT TECHNIQUE: Stamped time of this exam is 4:04 PM. CLINICAL HISTORY: Post-Intubation- Confirm placement of ETT COMPARISON: Chest radiograph 06/10/2024 at 3:51 PM FINDINGS: SINGLE VIEW CHEST The heart is normal in size. The mediastinum is unremarkable. There has been interval intubation. ET tube is in good position above the wilson. There is mild improved aeration in the right lung base. No appreciable pneumothorax is identified. IMPRESSION: Endotracheal tube in good position. Mild improved aeration of the right lung base. Reviewed, Interpreted and Dictated by Venkatesh Díaz MD Transcribed by Tita Santos Authenticated and [facility]
[2024-06-10] MEDS: MIDAZOLAM HCL 1MG/ML 5ML VIAL 10 MG IV (16:13)
[2024-06-10] MEDS: ROCURONIUM BROMIDE 50MG/5ML VIAL 100 MG IV (16:18)
--- NOTE | 2024-06-10 16:27 | PC.NURSE ---
CALLED RADIOLOGY TO POWER SHARE XRAY FROM NOW AND CT FROM THIS MORNING TO [place] AND TO BURN A DISC
[2024-06-10 16:37] LABS: Basophils # 0.1 K/mm3 (0-0.2); Basophils % 0.5 % (0.1-2.0); Eosinophils # 0.2 K/mm3 (0.0-0.4); Eosinophils % 1.3 % (0.1-12.0); Hemoglobin 11.7 g/dL (12.2-16.2); Lymphocytes % 23.3 % (10-50); Mean Corpuscular Hemoglobin 27.9 pg (27.0-31.2); Mean Corpuscular Volume 93.1 fl (81-99); Mean Platelet Volume 10.5 fl (7.4-10.4); Monocytes # 1.2 K/mm3 (0.1-1.0); Monocytes % 7.1 % (1.7-9.3); Neutrophils # 11.4 K/mm3 (1.8-7.8); Neutrophils % 66.5 % (37.0-80.0); Platelet Count 514 K/mm3 (142-424); Red Blood Count 4.19 M/mm3 (4.20-5.40); Red Cell Distribution Width 14.4 % (11.5-17.5); White Blood Count 17.1 K/mm3 (4.8-10.8)
[2024-06-10 16:38] LABS: MANUAL DIFFERENTIAL MANUAL DIFFERENTIAL (MANUAL DIFF)
--- NOTE | 2024-06-10 16:38 | [facility]H.EDGENADL ---
Discharge Plan Disposition Patient Disposition: Xfer Short-Term Hosp Condition: Critical Prescriptions Prescriptions: No Action atorvastatin 20 mg tablet 20 mg PO PRN Patient Comments: TAKE 1 TABLET BY MOUTH EVERY DAY diazepam 5 mg tablet 5 - 10 mg PO BIDP PRN (Reason: Anxiety) Patient Comments: TAKE 1 TO 2 TABLETS BY MOUTH TWICE DAILY NEEDED ipratropium-albuterol 0.5 mg-3 mg(2.5 mg base)/3 mL Solution For Nebulization 3 ml inhalation Q6H 30 Days Qty: 180 0RF budesonide [Pulmicort] 0.5 mg/2 mL Suspension For Nebulization 0.5 mg inhalation BIDRT 30 Days Qty: 120 0RF hydrocodone-acetaminophen 5-325 mg tablet 1 tab PO Q6H PRN (Reason: pain) 3 Days Qty: 18 0RF Referrals Follow up/Referrals: Wu Garrido [Primary Care Provider] - See instructions Clinical Impressions Clinical Impression: Acute hypercapnic respiratory failure, Acute exacerbation of chronic obstructive pulmonary disease, Shock, Mass of right lung, Hypothermia, Sepsis, Altered mental status, Elevated troponin Stand Alone Forms Stand Alone Forms: Transfer Record - ED Print Language Print Language: Polish Discharge ED Provider: Susan Bourgeois General Adult HPI General Chief complaint: Shortness of Breath/Dyspnea Stated complaint: UNRESPONSIVE Time Seen by Provider: 06/10/24 16:03 History of Present Illness HPI narrative: This patient is a 58-year-old female with a history of hypertension, hyperlipidemia, COPD, large lung mass 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 According to EMS, they were called to the patient's home. They state family did not provide good history and no family is at bedside. They noted that they found the patient in an extremis with very shallow respirations. She did have a pulse. Given this, they assisted respirations with [id number] and brought her in for evaluation. They did check a fingerstick blood glucose which was noted to be normal. They noted pressures were soft, heart rate was high, but oxygen saturation was normal. Patient does not contribute to history given acuity of condition. Related Data Home Medications ?Medication ?Instructions ?Recorded ?Confirmed diazepam 5 mg tablet 5 - 10 mg PO BIDP PRN Anxiety 02/21/25 03/05/25 atorvastatin 20 mg tablet 20 mg PO PRN 06/08/24 06/10/24 Previous Rx's ?Medication ?Instructions ?Recorded budesonide 0.5 mg/2 mL suspension 0.5 mg (2 mL) inhalation BIDRT 30 06/04/24 for nebulization (Pulmicort) days #120 mL hydrocodone 5 mg-acetaminophen 325 1 tab PO Q6H PRN pain 3 days #18 06/04/24 mg tablet tabs ipratropium 0.5 mg-albuterol 3 mg 3 ml inhalation Q6H 30 days #180 mL 06/04/24 (2.5 mg base)/3 mL nebulization soln Allergies Allergy/AdvReac Type Severity Reaction Status Date / Time codeine Allergy Unknown Verified 06/10/24 10:38 allergy reaction Penicillins Allergy Hives Verified 06/10/24 10:38 levofloxacin (From Levaquin) AdvReac Mild Verified 06/10/24 10:38 PFSH PFS Disclaimer: The information contained in this section may have been updated after the patient was seen, as this information can be updated by other users. Medical History Hilar lymphadenopathy Mediastinal lymphadenopathy Pulmonary emphysema Lung mass Pneumonia Lung collapse Pleural effusion on right Pneumothorax HLD (hyperlipidemia) COPD (chronic obstructive pulmonary disease) Tonsil cancer Surgical History Hx of tonsillectomy H/O: hysterectomy Social History Smoking Status: Former smoker alcohol intake: never current occupational status: retired Travel in the last 8 weeks: None Other Medical History Have you received the Flu Vaccine for this season: No Have you received the Pneumonia Vaccine: No ROS Obtained: Yes unobtainable due to mental status Physical Exam General General appearance: in distress Comment: GCS of 3, very shallow respirations with significant expediter clerk muscle use. [id number] assisted ventilations. Inspiratory expiratory wheezing noted bilaterally, diminished lung sounds in the right base. Head Head exam: atraumatic and normocephalic Eye Eye exam: Present normal appearance and PERRL ENT ENT exam: Present mucous membranes dry Neck Neck exam: Present normal inspection and full ROM Chest Chest inspection: Present symmetric chest wall rise and other (Pigtail catheter in anterior right chest) Respiratory Respiratory exam: Present respiratory distress and other (Shallow respirations with accessory muscle use, diffuse wheezing, diminished lung sounds right base with known mass. [id number] assisted ventilations) Cardiovascular Cardiovascular exam: Present tachycardia Abdominal Exam Abdominal exam: Present soft; Absent distention, tenderness or guarding Extremities Exam Extremities exam: Present normal inspection; Absent edema Neurological Exam Neurological exam: Present other (GCS 3); Absent alert or oriented X3 Skin Skin exam: Present other (Cyanosis of the head and neck, warm and well-perfused distally in all 4 extremities) Medical Decision Making Medical Records Screening: Per USPSTF and CDC recommendations, given the prevalence of disease in our region, it is our hospital?s policy to screen for HIV and viral Hepatitis for all patients aged 18 and over and those with ongoing risk factors. Hiren Inquiry Pt receiving controlled substance: No Vital Signs: 06/10/24 15:47 06/10/24 16:16 06/10/24 16:20 Temperature 95.5 F L Temperature Source Axillary Pulse Rate 128 H 130 H Pulse Rate [Left Radial] 144 H Respiratory Rate 29 H 36 H 28 H Blood Pressure 124/84 69/48 L Blood Pressure [Right Arm] 174/109 H Blood Pressure Mean [Right Arm] 130 02 Sat by Pulse Oximetry 99 97 99 Oxygen Delivery Method Ambu-Bag Mechanical Ventilation Mechanical Ventilation Fraction of Inspired Oxygen 06/10/24 16:22 06/10/24 16:23 06/10/24 16:25 Temperature Temperature Source Pulse Rate 127 H 125 H 121 H Pulse Rate [Left Radial] Respiratory Rate 28 H 28 H 28 H Blood Pressure 62/41 L 62/40 L 63/41 L Blood Pressure [Right Arm] Blood Pressure Mean [Right Arm] 02 Sat by Pulse Oximetry 100 100 100 Oxygen Delivery Method Mechanical Ventilation Mechanical Ventilation Mechanical Ventilation Fraction of Inspired Oxygen 06/10/24 16:26 06/10/24 16:29 06/10/24 16:30 Temperature Temperature Source Pulse Rate 119 H 123 H 127 H Pulse Rate [Left Radial] Respiratory Rate 28 H 25 H 28 H Blood Pressure 68/40 L 87/66 L 110/83 Blood Pressure [Right Arm] Blood Pressure Mean [Right Arm] 02 Sat by Pulse Oximetry 100 99 99 Oxygen Delivery Method Mechanical Ventilation Mechanical Ventilation Mechanical Ventilation Fraction of Inspired Oxygen 06/10/24 16:30 06/10/24 16:35 06/10/24 16:40 Temperature Temperature Source Pulse Rate 145 H 134 H Pulse Rate [Left Radial] Respiratory Rate 30 H 10 L 28 H Blood Pressure 170/106 H 150/91 H Blood Pressure [Right Arm] Blood Pressure Mean [Right Arm] 02 Sat by Pulse Oximetry 100 76 L 94 L Oxygen Delivery Method Mechanical Ventilation Fraction of Inspired Oxygen 50 06/10/24 16:45 06/10/24 16:50 06/10/24 16:55 Temperature 95.5 F L 95.7 F L 96.1 F L Temperature Source Pulse Rate 122 H 120 H 124 H Pulse Rate [Left Radial] Respiratory Rate 28 H 0 L 0 L Blood Pressure 149/95 H 158/103 H 167/106 H Blood Pressure [Right Arm] Blood Pressure Mean [Right Arm] 02 Sat by Pulse Oximetry 94 L 95 97 Oxygen Delivery Method Mechanical Ventilation Mechanical Ventilation Fraction of Inspired Oxygen 06/10/24 16:58 06/10/24 17:00 06/10/24 17:00 Temperature 96.1 F L 96.1 F L Temperature Source Pulse Rate 125 H 126 H Pulse Rate [Left Radial] Respiratory Rate 8 L 0 L 36 H Blood Pressure 163/103 H 161/103 H Blood Pressure [Right Arm] Blood Pressure Mean [Right Arm] 02 Sat by Pulse Oximetry 98 97 98 Oxygen Delivery Method Mechanical Ventilation Mechanical Ventilation Fraction of Inspired Oxygen 50 06/10/24 17:05 06/10/24 17:10 06/10/24 17:15 Temperature 96.3 F L 96.3 F L 96.3 F L Temperature Source Pulse Rate 136 H 140 H 130 H Pulse Rate [Left Radial] Respiratory Rate 25 H 36 H 34 H Blood Pressure 178/116 H 129/87 78/54 L Blood Pressure [Right Arm] Blood Pressure Mean [Right Arm] 02 Sat by Pulse Oximetry 95 98 98 Oxygen Delivery Method Mechanical Ventilation Mechanical Ventilation Mechanical Ventilation Fraction of Inspired Oxygen 06/10/24 17:16 06/10/24 17:20 06/10/24 17:25 Temperature 96.3 F L 96.3 F L 96.1 F L Temperature Source Pulse Rate 127 H 129 H 145 H Pulse Rate [Left Radial] Respiratory Rate 33 H 34 H 34 H Blood Pressure 74/48 L 95/72 L 153/105 H Blood Pressure [Right Arm] Blood Pressure Mean [Right Arm] 02 Sat by Pulse Oximetry 98 99 99 Oxygen Delivery Method Mechanical Ventilation Mechanical Ventilation Mechanical Ventilation Fraction of Inspired Oxygen 06/10/24 17:30 06/10/24 17:30 06/10/24 17:30 Temperature Temperature Source Pulse Rate 123 H 126 H Pulse Rate [Left Radial] Respiratory Rate Blood Pressure Blood Pressure [Right Arm] Blood Pressure Mean [Right Arm] 02 Sat by Pulse Oximetry 99 Oxygen Delivery Method Mechanical Ventilation Fraction of Inspired Oxygen 50 06/10/24 17:40 06/10/24 17:41 06/10/24 17:43 Temperature 95.7 F L 95.7 F L 95.5 F L Temperature Source Pulse Rate 150 H 149 H 149 H Pulse Rate [Left Radial] Respiratory Rate 34 H 34 H 35 H Blood Pressure 153/102 H 145/101 H 147/96 H Blood Pressure [Right Arm] Blood Pressure Mean [Right Arm] 02 Sat by Pulse Oximetry 100 100 100 Oxygen Delivery Method Mechanical Ventilation Mechanical Ventilation Mechanical Ventilation Fraction of Inspired Oxygen 06/10/24 17:45 06/10/24 17:50 06/10/24 17:55 Temperature 95.5 F L 95.5 F L 95.4 F L Temperature Source Pulse Rate 147 H 138 H 134 H Pulse Rate [Left Radial] Respiratory Rate 34 H 34 H 34 H Blood Pressure 125/82 98/70 L 88/63 L Blood Pressure [Right Arm] Blood Pressure Mean [Right Arm] 02 Sat by Pulse Oximetry 100 100 100 Oxygen Delivery Method Mechanical Ventilation Mechanical Ventilation Mechanical Ventilation Fraction of Inspired Oxygen 06/10/24 18:00 06/10/24 18:00 06/10/24 18:05 Temperature 95.4 F L 95.4 F L Temperature Source Pulse Rate 127 H 116 H Pulse Rate [Left Radial] Respiratory Rate 34 H 30 H 34 H Blood Pressure 69/46 L 83/59 L Blood Pressure [Right Arm] Blood Pressure Mean [Right Arm] 02 Sat by Pulse Oximetry 100 100 100 Oxygen Delivery Method Mechanical Ventilation Mechanical Ventilation Fraction of Inspired Oxygen 35 06/10/24 18:10 06/10/24 18:15 06/10/24 18:20 Temperature 95.4 F L 95.4 F L 95.4 F L Temperature Source Pulse Rate 116 H 129 H 133 H Pulse Rate [Left Radial] Respiratory Rate 34 H 34 H 34 H Blood Pressure 97/66 L 108/75 L 114/80 Blood Pressure [Right Arm] Blood Pressure Mean [Right Arm] 02 Sat by Pulse Oximetry 100 100 100 Oxygen Delivery Method Mechanical Ventilation Mechanical Ventilation Mechanical Ventilation Fraction of Inspired Oxygen 06/10/24 18:25 06/10/24 18:30 06/10/24 18:35 Temperature 95.4 F L 95.4 F L 95.4 F L Temperature Source Pulse Rate 132 H 135 H 136 H Pulse Rate [Left Radial] Respiratory Rate 34 H 34 H 34 H Blood Pressure 119/82 118/84 118/81 Blood Pressure [Right Arm] Blood Pressure Mean [Right Arm] 02 Sat by Pulse Oximetry 92 L 99 100 Oxygen Delivery Method Mechanical Ventilation Mechanical Ventilation Mechanical Ventilation Fraction of Inspired Oxygen 06/10/24 19:10 06/10/24 20:22 Temperature Temperature Source Pulse Rate Pulse Rate [Left Radial] Respiratory Rate 22 22 Blood Pressure Blood Pressure [Right Arm] Blood Pressure Mean [Right Arm] 02 Sat by Pulse Oximetry 99 97 Oxygen Delivery Method Fraction of Inspired Oxygen 30 30 Lab Data Lab Results 06/10/24 15:52: WBC 17.1 H, RBC 4.19 L, Hgb 11.7 L, Hct 39.0, MCV 93.1, MCH 27.9, MCHC 30.0 L, RDW 14.4, Plt Count 514 H, MPV 10.5 H, Neut % (Auto) 66.5, Lymph % (Auto) 23.3, Terrell % (Auto) 7.1, Eos % (Auto) 1.3, Baso % (Auto) 0.5, Neut # (Auto) 11.4 H, Lymph # (Auto) 4.0, [place] # (Auto) 1.2 H, Eos # (Auto) 0.2, Baso # (Auto) 0.1, Total Counted 100, Neutrophils % (Manual) 68, Lymphocytes % (Manual) 23, Monocytes % (Manual) 5, Eosinophils % (Manual) 2, Basophils % (Manual) 2.0 H, Platelet Estimate Slight increase, RBC Morphology Normal, Sodium 140, Potassium 3.2 L, Chloride 101, Carbon Dioxide 32 H, Anion Gap 10.2, BUN 10, Creatinine 0.60, Estimated Creat Clear 89, Estimated GFR 102, Est GFR ( Amer) 123, Glucose 259 H, Lactate 3.0 H, Calcium 8.7, Phosphorus 8.0 H, Magnesium 2.3, Total Bilirubin 0.3, AST 32, ALT 32, Alkaline Phosphatase 64, Troponin I < 0.01, NT-Pro-B Natriuret Pep 378 H, Total Protein 7.1, Albumin 4.2, Globulin 2.9, Albumin/Globulin Ratio 1.4, TSH 0.61, Thyroxine (T4) 12.0 H 06/10/24 16:41: Urine Color Yellow, Urine Appearance Clear, Urine pH 6.0, Ur Specific [place] >= 1.030, Urine Protein 1+ A, Urine Glucose (UA) Negative, Urine Ketones Negative, Urine Blood Trace-i, Urine Nitrate Negative, Urine Bilirubin Negative, Urine Urobilinogen 0.2, Ur Leukocyte Esterase Negative, Urine RBC Occasional, Urine WBC Occasional, Ur Squamous Epith Cells Occasional, Urine Bacteria Trace, Hyaline Casts 3-5 06/10/24 16:43: Urine Opiates Screen Positive H, Urine Methadone Screen Negative, Ur Barbituates Screen Negative, Ur Phencyclidine Scrn Negative, Ur Amphetamines Screen Negative, U Benzodiazepines Scrn Positive H, Urine Cocaine Screen Negative, U Marijuana (THC) Screen Negative 06/10/24 18:39: Specimen Source A-line, O2 % 35%, ABG pH 7.45, ABG pCO2 31.7 L, ABG pO2 110.1 H, ABG HCO3 21.6 L, ABG Total CO2 22.6 L, ABG O2 Saturation 99, ABG Base Excess -2.3, Aba Test Patient unable, Vent Rate 30, Tidal Volume 250, PEEP 5 06/10/24 19:40: Troponin I 0.10 H 06/10/24 20:45: Lactate 2.3 H 06/10/24 15:52 06/10/24 15:52 Orders (Tests/Meds): ED MEDICATIONS Generic Name Dose Route Start Last Admin Trade Name Freq PRN Reason Stop Dose Admin Fentanyl Citrate 12.5 mcg 06/10/24 16:19 Fentanyl 12.5mcg/0.25ml IV 07/10/24 16:18 [id number] PRN Achieve CPOT Score <3 Fentanyl Citrate 1,000 mcg/ 100 mls @ 2.5 mls/hr 06/10/24 16:30 06/10/24 17:11 Sodium Chloride IV 07/10/24 16:29 150 mcg/hr .Q24H [facility] 15 mls/hr Titration Protocol 25 MCG/HR Norepinephrine Bitartrate 8 mg 258 mls @ 15.48 mls/hr 06/10/24 17:18 06/10/24 21:47 / Sodium Chloride IV 07/10/24 17:17 8 mcg/min .[id number] [facility] 15.48 mls/hr Titration Protocol 8 MCG/MIN Midazolam/Sodium Chloride 50 mg in 50 mls @ 11 mls/hr 06/10/24 18:52 06/10/24 18:56 Midazolam 50 Mg/50 Ml-0.9%Nacl IV 07/10/24 16:12 11 mls/hr .[id number] [facility] 11 mls/hr Administration Protocol Lactated Ringer's 1,000 mls @ 125 mls/hr 06/10/24 19:30 06/10/24 19:30 Lactated Ringer's 1000 Ml Bag IV 07/10/24 19:29 125 mls/hr .Q8H [place] Administration Miscellaneous 1 each 06/10/24 17:00 06/10/24 17:30 Vancomycin Consult Request NOTAPPLIC 07/10/24 16:59 1 each CONSULT [facility]ARM[facility]Y [facility] Administration Discontinued Medications Generic Name Dose Route Start Last Admin Trade Name Freq PRN Reason Stop Dose Admin Etomidate 30 mg 06/10/24 16:27 06/10/24 15:56 Etomidate 40mg/20ml Vial IV 06/10/24 16:28 30 mg ONCE ONE Administration Lactated Ringer's 1,000 mls @ 999 mls/hr 06/10/24 16:27 06/10/24 15:56 Lactated Ringer's 1000 Ml Bag IV 06/10/24 17:27 999 mls/hr .Q1H1M ONE Administration Cefepime HCl 2 gm/ Sodium 100 mls @ 200 mls/hr 06/10/24 16:55 06/10/24 17:40 Chloride IV 06/10/24 17:24 200 mls/hr ONCE ONE Administration Vancomycin/PEG/[place]/Lysine/Water 1.5 gm in 300 mls @ 150 mls/hr 06/10/24 17:00 06/10/24 17:30 Vancomycin 1.5gm/300ml (Peg) Premix IV 06/10/24 18:59 150 mls/hr ONCE ONE Administration Midazolam/Sodium Chloride 50 mg in 50 mls @ 1.134 mls/hr 06/10/24 16:13 06/10/24 17:12 Midazolam 50 Mg/50 Ml-0.9%Nacl IV 07/10/24 16:12 0.2 mg/kg/hr .Q24H [facility] 11.34 mls/hr Titration Protocol 0.02 MG/KG/HR Levalbuterol HCl 1.25 mg 06/10/24 19:32 06/10/24 20:44 Levalbuterol 1.25mg/3ml [facility] 06/10/24 19:33 Not Given ONCE ONE Levalbuterol HCl 10 mg 06/10/24 20:45 06/10/24 20:50 Levalbuterol 1.25mg/3ml [facility] 06/10/24 20:46 Not Given ONCE ONE Levalbuterol HCl 10 mg 06/10/24 17:30 06/10/24 17:30 Levalbuterol 1.25mg/3ml [facility] 06/10/24 17:31 10 mg ONCE ONE Administration Methylprednisolone Sodium Succinate 125 mg 06/10/24 16:55 06/10/24 17:03 Methylprednisolone Sod Succ 125mg Vial IV 06/10/24 16:56 125 mg ONCE ONE Administration Midazolam HCl 10 mg 06/10/24 16:28 06/10/24 16:13 Midazolam Hcl 1mg/Ml 5ml Vial IV 06/10/24 16:29 10 mg ONCE ONE Administration Propofol 0 mg 06/10/24 16:28 06/10/24 19:12 Propofol 10 Mg/Ml 100ml Infusion Bottle IV 06/10/24 16:29 Not Given ONCE ONE Rocuronium [place] 100 mg 06/10/24 16:29 06/10/24 16:18 Rocuronium [place] 50mg/5ml Vial IV 06/10/24 16:30 100 mg ONCE ONE Administration Succinylcholine Chloride 100 mg 06/10/24 15:56 06/10/24 15:56 Succinylcholine 20mg/Ml 10 Ml Mdv IV 06/10/24 15:57 100 mg ONCE ONE Administration ORDERS Category Date Time Status XR chest portable Stat Exams 06/10/24 16:06 Completed XR chest portable Stat Exams 06/10/24 16:07 Completed BNP [NT Pro Brain Natriuretic Pep.] Stat Lab 06/10/24 15:52 Completed Complete Blood Count Auto Diff Stat Lab 06/10/24 15:52 Completed Comprehensive Metabolic Panel Stat Lab 06/10/24 15:52 Completed Lactic Acid Follow Up (RFLX 1) Stat Lab 06/10/24 20:45 Completed Lactic Acid Stat Lab 06/10/24 15:52 Completed MAG [Magnesium] Stat Lab 06/10/24 15:52 Completed PHOS [Phosphorous] Stat Lab 06/10/24 15:52 Completed Rapid PCR Covid and Flu A/B Stat Lab 06/10/24 20:28 Ordered T4 (Thyroxine) Stat Lab 06/10/24 15:52 Completed TSH [Thyroid Stimulating Hormone] Stat Lab 06/10/24 15:52 Completed Trop I [Troponin I] Stat Lab 06/10/24 15:52 Completed Troponin I Q3H Lab 06/10/24 19:40 Completed Troponin I Q3H Lab 06/10/24 22:30 Ordered UA [Urinalysis and Microscopic] Stat Lab 06/10/24 16:41 Completed UDS [Drug Screen,Urine] Stat Lab 06/10/24 16:43 Completed Blood Culture Stat Micro 06/10/24 15:52 Received Sputum Culture & Gram Stain Stat Micro 06/10/24 16:02 Results ABG [Arterial Blood Gas] Timed RT 06/10/24 18:39 Completed ECG Data Tracing #1: I reviewed this ECG and interpreted as documented below: Sinus tachycardia versus atrial flutter with a ventricular rate of [address] changes concerning for ischemia. Normal axis. ECG initial impression date: 06/10/24 ECG initial impression time: 15:52 Medical Decision Narrative: In summary, this patient is a 58 presenting to the Emergency Department for evaluation of acute respiratory distress and unresponsiveness. Differential diagnoses considered include but are not limited to respiratory failure, COPD exacerbation, CHF exacerbation, worsening of known malignancy, worsening pneumothorax, worsening pleural effusion, overdose, ACS, dysrhythmia. Ruling out the most morbid conditions drove assessment. It should be noted patient's history includes COPD, very large right lung mass obscuring her bronchus, right hydropneumothorax which are not at goal therapy. This complicates all aspects of care by increasing patient's risk for morbidity. I reviewed patient's past medical records and noted recent admission for this hydropneumothorax that improved after drainage, patient had a pigtail catheter placed in the anterior chest that is set to valve. I noted improvement in her hydropneumothorax. She had a CT chest earlier this morning and then saw pulmonology, and at that point she seemed to be doing okay. On exam, the patient is in obvious distress with cyanotic head and neck, severe respiratory distress requiring [id number] assistance, tachycardia. Given that her pigtail catheter is in place in the right chest, I immediately got a stat portable chest x-ray to make sure she did not have any large hydropneumothorax. I independently interpreted x-ray prior to radiology read and noted no significant change in the interval from prior scan. Given this and the patient's respiratory distress requiring [id number] assistance, decision was made to intubate the patient with rapid sequence intubation. I used etomidate and succinylcholine and placed a 7 and half ET tube without difficulty. She tolerated this well with no immediate complication. Placement confirmed with auscultation as well as postplacement chest x-ray which was independently interpreted by myself. I noted no new pneumothorax, and I noted satisfactory placement of ET tube. Please see radiology read for final interpretation. After intubation, patient began fighting against the ventilator and I had difficulty getting her synchrony with the vent despite sedation. I did initiate Levophed for shock after initiating sedation. Despite increasing sedation and messing with ventilator settings to try and achieve good volumes and pressures, she had significant elevated peak pressures on the vent (70's) with very low volumes (100's). End-tidal CO2 was only 30 despite the fact that I had already noted she had a hypercapnic respiratory failure based on ABG that was obtained. I decided to paralyze the patient with rocuronium. I disconnected the ventilator, decompressed her chest, and we did adjust ventilator settings to pressure control from PRVC. This did help with volumes, now she is pulling anywhere from 200 to 300 cc which is significantly improved. Pressures are in the mid 50s as opposed to 70s as they were earlier. O2 saturation is fine. End-tidal is now up to the 80s, which I feel is appropriate given that she has hypercapnic respiratory failure. I feel now she is finally ventilating well. I had administered 3 DuoNebs and administered IV methylprednisolone. She continued to have significant wheezing and tightness in her left lung with diminished breath sounds on the right side where this masses. Given this, patient was started on an hour continuous levalbuterol given her tachycardia. She has had labile blood pressures, ultimately ended up improving after IV fluids and Levophed was able to be stopped. She has noted to be hypothermic. Given hypothermia, leukocytosis, acute illness decision was made to start the patient on broad-spectrum antibiotics including IV vancomycin and cefepime. Sedation right now is being maintained with IV fentanyl and Versed. Broad workup was sent to evaluate for infectious, metabolic, cardiac etiologies. Patient does have a leukocytosis. She has stable chronic anemia. Chemistry is reassuring with negative troponin, BNP is not significantly elevated. Initial ABG showed pH 7.1, pO2 387, pCO2 84. Family then arrived and stated that the patient was doing okay after this appointment, but then she started doing a breathing treatment at home for shortness of breath and then her long-term partner found her lying back on the bed unresponsive. He arrives and advises he is not next of kin, her sister would be, but he is not sure how to get a hold of sister. We do not see any contact information for sister in the chart. I did update him with regards to the patient's current status that she is critically ill.. I called and had an interactive discussion with Dr. Huff with pulmonology who advised he felt the patient benefit from transfer to higher level of care given that she has this very large obstructive mass and family wants all things done to eventually help the patient. Given this, initiated conversations with [facility] at 1650. Awaiting callback at 1730. Once [facility] did call back, I spoke with Dr. Harris who advised they could accept patient to ICU, recommended calling back with repeat ABG for bed assignment. Arterial line was placed for frequent ABG's and continued monitoring. Levophed was initiated earlier for shock, but we are titrating down for goal map of 65. Patient was doing well on pressure control 40/5, rate 34, pulling volumes 300-400. This is improved after an hour of levalbuterol. Repeat ABG shows pH 7.45, pO2 110, pCO2 31, so settings changed to 35/5, rate 22, now pulling volumes of 400. She is currently on fentanyl 150mcg/hr, 0.2mg/kg/hr versed. I called Dr. Harris at 1925 with results and she advised they will call right back with ICU bed. We hadnt heard from them at 1999, so we called and were told has no beds, so patient is on a waitlist. We then called [facility] no ICU beds. We then called [facility] [facility], who also have no ICU beds. I then discussed with Dr. Segal and Dr. Buenrostro with who graciously accepted the patient for transfer to their ICU. While we were awaiting bed assignment, actually called back and advised they have a bed - accepted by Dr. Harris. I spoke with family, family prefers given proximity. I did call and let them know. Patient is still stable and doing well at this time, so I feel she is stable for transfer at this time. EMS transport arranged. Interventions here included: intubation and arterial line, etomidate and succinylcholine for intubation, push dose propofol and versed for initial sedation while we awaited versed and fentanyl GTT, rocuronium at 1630 for vent dyssynchrony, 1L bolus IVF, LR at 125/hr, IV vancomycin/cefepime, duonebs x 3, 1 hour continuous levalbuterol, IV methylprednisolone, fentanyl and versed GTT for sedation, levophed GTT for pressure support Procedures Intubation Time out performed: Yes sedative: Etomidate Mg Given: 30 paralytic: Succinylcholine Mg Given: 100 Laryngoscope: other (Mac 3 video assisted) ET Tube Size: 7.5 ET Tube Uncuffed: No Tube Secured Depth (cm): 24 Tube Secured Location: lips Tube Placement Confirmation: visualized tube passing through cords, equal breath sounds bilaterally, no breath sounds over epigastrium and confirmation by capnometry Patient Tolerated Procedure: well and no complications Intubation Complications: none Arterial Line Time Out Performed: Yes Size (Gauge): 20 Technique Used: guide wire technique Post-Procedure: line sutured into place and dry sterile dressing placed Patient Tolerated Procedure: well and no complications Complications: none Site: right and radial Critical Care Critical Care Time Critical Care Time: Yes Attestation: On 06/10/24, the high probability of a clinically significant, sudden or life threatening deterioration of the following system(s) required my full and direct attention, intervention and personal management. The time I documented below is in addition to time spent performing reported procedures but includes the following listed in this critical care notation. Total Time Total Critical Care Time: 120
[2024-06-10 16:44] LABS: Microscopic, Urine URINE MICROSCOPIC (MICROSCOPIC)
--- NOTE | 2024-06-10 16:53 | PC.NURSE ---
CALLED FOR BED REQUEST, WAITING FOR CALL BACK.
[2024-06-10 16:55] LABS: Albumin Level 4.2 g/dl (3.5-5.0); Chloride 101 mmol/L (98-107); Sodium 140 mmol/L (136-145)
[2024-06-10 16:56] LABS: Potassium 3.2 mmoL/L (3.5-5.1)
[2024-06-10 16:58] LABS: Alanine Aminotransferase 32 U/L (12-78); Albumin/Globulin Ratio 1.4 (1.1-1.8); Anion Gap 10.2 mEq/L (5-15); Aspartate Amino Transferase 32 U/L (14-36); Blood Urea Nitrogen 10 mg/dl (7-17); Carbon Dioxide 32 mmol/L (22.0-30.0); Creatinine Clearance Estimated 89 mL/min (50-200); Estimated Glomerular Filt Rate 102 ml/min (>60); GFR (African American) 123 ML/MIN (>60); Globulin 2.9 g/dL (1.3-3.2); Total Protein,Serum 7.1 g/dl (6.3-8.2)
[2024-06-10 16:59] LABS: Alkaline Phosphatase 64 U/L (38-126); Bilirubin,Total 0.3 mg/dl (0.2-1.3); Calcium 8.7 mg/dl (8.4-10.2); Glucose 259 mg/dl (74-100); Magnesium 2.3 mg/dl (1.6-2.3)
[2024-06-10] MEDS: FENTANYL CITRATE/PF 1,000 MCG in 0.9 % SODIUM CHLORIDE 80 ML 2.5 MCG IV (17:02)
[2024-06-10] MEDS: METHYLPREDNISOLONE SOD SUCC 125MG VIAL 125 MG IV (17:03)
[2024-06-10 17:08] LABS: NT Pro Brain Natriuretic Pep. 378 pg/mL (0-125)
[2024-06-10] MEDS: MIDAZOLAM HCL IN 0.9 % NACL/PF 50 MG/50 ML PLAST..BAG IV (17:11)
[2024-06-10] MEDS: NOREPINEPHRINE BITARTRATE 8 MG in 0.9 % SODIUM CHLORIDE 250 ML 29.03 MG IV (17:15)
[2024-06-10 17:16] LABS: Troponin I < 0.01 ng/ml (0.00-0.034)
[2024-06-10 17:29] LABS: Thyroid Stimulating Hormone 0.61 uIU/mL (0.465-4.68)
[2024-06-10] MEDS: LEVALBUTEROL 1.25MG/3ML NEB 10 MG IH (17:30)
[2024-06-10] MEDS: VANCOMYCIN/WATER FOR INJ (PEG) 1.5 GM/300 ML PIGGYBACK IV (17:30)
[2024-06-10] MEDS: VANCOMYCIN CONSULT REQUEST 1 EACH NOTAPPLIC (17:30)
[2024-06-10] MEDS: CEFEPIME HCL 2 GM in 0.9 % SODIUM CHLORIDE 100 ML IV (17:40)
[2024-06-10 17:56] LABS: Eosinophils % 2 % (0-3); Lymphocytes % 23 % (10-50); Monocytes % 5 % (2-9); Neutrophils % 68 % (42-76); RBC Morphology Normal; Total Cells Counted 100
[2024-06-10 17:57] LABS: Platelet Estimate Slight Increase
[2024-06-10 18:01] LABS: Appearance,Urine CLEAR (Clear); Bilirubin,Urine Negative (Negative); Blood, Urine TRACE-I (Negative); Color,Urine YELLOW (Yellow); Glucose,Urine (UA) Negative (Negative); Ketones,Urine Negative (Negative); Leukocyte Esterase,Urine Negative (Negative); Nitrate,Urine Negative (Negative); Protein,Urine 1+ (Negative); Specific Gravity, Urine >= 1.030 (1.005-1.030); Urobilinogen,Urine 0.2 EU/dl (0.2)
--- NOTE | 2024-06-10 18:11 | PC.NURSE ---
CALLED [facility] FOR AN UPDATE ON TRANSFER, [facility] STATED THAT THEY WOULD BE GIVING US A CALL BACK IN THE NEXT FEW MINUTES.
[2024-06-10 18:14] LABS: Amphetamine/Metha Screen,Urine Negative ng/ml (<1000)
[2024-06-10 18:15] LABS: Barbiturates Screen,Urine Negative ng/ml (<200); Benzodiazepines Screen,Urine Positive ng/ml (<200)
[2024-06-10 18:16] LABS: Cannabinoid Screen,Urine Negative ng/ml (<50)
[2024-06-10 18:17] LABS: Cocaine Screen,Urine Negative ng/ml (<300); Methadone Screen,Urine Negative ng/ml (<300)
[2024-06-10 18:18] LABS: Opiate Screen,Urine Positive ng/ml (<300); Phencyclidine Screen,Urine Negative ng/ml (<25)
--- NOTE | 2024-06-10 18:36 | PC.NURSE ---
SPEAKING WITH AT THIS TIME
--- NOTE | 2024-06-10 18:54 | PC.NURSE ---
AT BS PLACING ART LINE
[2024-06-10] MEDS: MIDAZOLAM HCL IN 0.9 % NACL/PF 50 MG/50 ML PLAST..BAG 11 MG IV (18:56)
[2024-06-10 19:11] LABS: ABG Base Excess -2.3 mmol/L (-2.4-2.3); ABG HCO3 21.6 mmhg (22.0-26.0); ABG Oxygen Saturation 99 % (90-100); ABG PCO2 31.7 mmhg (35.0-45.0); ABG PH 7.45 mmol/L (7.35-7.45); ABG PO2 110.1 mmhg (80-100); ABG TCO2 22.6 mmhg (23-27)
[2024-06-10 19:14] LABS: Allen's Test Patient Unable; Oxygen 35% %; PEEP 5; Source A-LINE; Tidal Volume 250; Vent Rate 30
[2024-06-10] MEDS: LACTATED RINGERS 1000ML 1,000 ML 125 ML IV (19:30)
--- NOTE | 2024-06-10 19:52 | PC.NURSE ---
THIS RN RECIEVED REPORT FROM PREVIOUS RN ON THIS PATIENT. ROUNDED ON PATIENT, UPDATED FAMILY. AWAITING BED FOR TRANSFER TO [facility].
--- NOTE | 2024-06-10 20:04 | PC.NURSE ---
has been called for an attempt to get a bed assignment. There is still no bed available.
--- NOTE | 2024-06-10 20:21 | PC.NURSE ---
[facility] was called for a possible transfer but has no ICU beds.
--- NOTE | 2024-06-10 20:23 | PC.NURSE ---
[facility] was called for a possible transfer but has no beds.
[2024-06-10 20:29] LABS: Reflex Lactic Add Lactic Reflex
--- NOTE | 2024-06-10 20:32 | PC.NURSE ---
[facility] will call back w/ physician
[2024-06-10 21:31] LABS: Lactic Acid Follow Up (RFLX 1) 2.3 mmol/L (0.7-2.1)
--- NOTE | 2024-06-10 21:36 | PC.NURSE ---
EMS called for transport
--- NOTE | 2024-06-10 21:40 | PC.NURSE ---
At 21:35 [employer] declined due to weather.
--- NOTE | 2024-06-10 21:44 | PC.NURSE ---
THIS RN RECIEVED ROOM ASSIGNMENT AT [facility], 12TH FLOOR, ROOM 113. ATTEMPTED TO GIVE REPORT, HOWEVER WAS TOLD THE NURSE WILL CALL YOU WHEN SHE IS READY.
[2024-06-10 21:48] LABS: Bacteria,Urine Trace /lpf; RBC,Urine Occasional #/hpf (0-3); Squamous Epithelial Cell,Urine Occasional #/hpf (0-5); WBC,Urine Occasional #/hpf (0-3)
[2024-06-10] MEDS: EPINEPHrine 5 MG in 0.9 % SODIUM CHLORIDE 250 ML 12.24 MG IV (22:14)
[2024-06-10] MEDS: FENTANYL CITRATE/PF 1,000 MCG in 0.9 % SODIUM CHLORIDE 80 ML 1 MCG IV (22:35)
[2024-06-10 22:47] LABS: Reflex Lactic (2 hrs) Add Lactic Reflex
--- NOTE | 2024-06-11 02:15 | PC.NURSE ---
pt transported via ems to [facility] ICU. pt arrived at 2335. vitals 123/96 art hr 145, 96% mechanical vent, rr 22. levophed at 18mcg/min fentanyl at 150 mcg/hr vasopressin at 0.2 mg/kg/hr pt tolerated transport well. no acute events
== END 2024-06-10 22:45 | disposition short-term general hospital (02) ==
PROVIDERS: Emergency Provider Emergency Medicine; PCP Pediatrics
DX: A41.9 Sepsis, unspecified organism (principal); T68.XXXA Hypothermia, initial encounter; R57.9 Shock, unspecified; R79.89 Other specified abnormal findings of blood chemistry; R41.82 Altered mental status, unspecified; I10 Essential (primary) hypertension; R00.0 Tachycardia, unspecified; J44.1 Chronic obstructive pulmonary disease with (acute) exacerbation; J96.02 Acute respiratory failure with hypercapnia; R91.8 Other nonspecific abnormal finding of lung field
CPT/HCPCS: 31500; 71045; 80053; 80307; 81001; 82803; 83605; 83735; 83880; 84100; 84436; 84443; 84484; 85007; 85025; 85027; 87040; 87070; 87205; 93005; 96361; 96365; 96366; 96374; 96375; 96376; 99291; 99292; J0171; J0330; J2250; J2919; J3010; J3372; J7120; J7614